=== PATIENT | female | born 1995 | race Caucasian/White ===

== ENCOUNTER 2024-03-30 10:32 | Outpatient (OUT) | payer OTHER, BC, SELFPAY ==
[2024-03-30 11:56] LABS: Amphetamine Screen Urine NEGATIVE (NEGATIVE); Barbiturates Screen Urine NEGATIVE (NEGATIVE); Benzodiazepines Screen Urine NEGATIVE (NEGATIVE); Buprenorphine Screen Urine NEGATIVE (NEGATIVE); Cannabinoid Screen Urine NEGATIVE (NEGATIVE); Cocaine Screen Urine NEGATIVE (NEGATIVE); Methadone Screen Urine NEGATIVE (NEGATIVE); Methamphetamines Screen Urine NEGATIVE (NEGATIVE); Opiate Screen Urine NEGATIVE (NEGATIVE); Oxycodone Screen Urine NEGATIVE (NEGATIVE); Phencyclidine Screen Urine NEGATIVE (NEGATIVE); Tricyclic Antidepressant Urine NEGATIVE (NEGATIVE)
[2024-03-30 12:03] LABS: Basophils Percent Auto 0.3 % (0.2-2.0); Eosinophils Absolute Auto 0.1 10^3/uL (0.0-0.7); Eosinophils Percent Auto 0.7 % (0.9-7.0); Hematocrit 42.9 % (36.0-48.0); Hemoglobin 15.1 g/dL (12.0-16.0); Immature Granulocytes Abs Auto 0.02 10^3/uL (0.00-0.03); Immature Granulocytes Pct Auto 0.2 % (0.0-0.5); Lymphocytes Percent Auto 22.7 % (20.5-60.0); Mean Corpuscular HGB Conc 35.2 g/dL (29.9-35.2); Mean Corpuscular Hemoglobin 31.2 pg (26.7-34.0); Mean Corpuscular Volume 88.6 fL (81.0-99.0); Mean Platelet Volume 9.9 fL (9.5-13.5); Monocytes Absolute Auto 0.7 10^3/uL (0.3-0.8); Monocytes Percent Auto 7.6 % (1.7-12.0); Neutrophils Absolute Auto 5.9 10^3/uL (1.4-6.5); Neutrophils Percent Auto 68.5 % (43.0-75.0); Platelet Count 264 10^3/uL (150-450); Red Blood Count 4.84 10^6/uL (4.20-5.40); Red Cell Distribution Width 12.5 % (11.0-15.0); White Blood Count 8.6 10^3/uL (4.0-11.0)
[2024-03-30 12:25] LABS: Estimated Average Glucose 97 mg/dL
[2024-03-31 05:08] LABS: HIV Ab/p24 Ag Screen Non Reactive (Non Reactive); Rubella Antibodies, IgG 1.81 index (Immune >0.99)
[2024-03-31 06:09] LABS: HBsAg Screen Negative (Negative)
[2024-03-31 11:10] LABS: Rapid Plasma Reagin, Quant Non Reactive titer (NonRea<1:1)
== END 2024-03-30 10:33 | disposition home or self-care (01) ==
LOC: LAB 10:39
DX: Z34.81 Encounter for supervision of other normal pregnancy, first trimester (principal)
CPT/HCPCS: 36415; 80307; 83036; 85025; 86592; 86762; 86850; 86900; 86901; 87086; 87340; 87389

== ENCOUNTER 2024-07-25 10:20 | Outpatient (OUT) | payer OTHER, BC, SELFPAY ==
[2024-07-25 11:38] LABS: Hematocrit 37.3 % (36.0-48.0); Hemoglobin 12.6 g/dL (12.0-16.0)
[2024-07-25 12:07] LABS: Glucose 1 Hour 128 mg/dL (<130)
--- OUTSIDE RECORDS SUMMARY | 2024-07-25 17:25 | XMS_ITS | CCD ---
Author Organization [facility] Care Team Providers Care Polishing Machine Tender Name Role Phone Natayush DO Mariah Attending Provider NO FAMILY, PHYSICIAN Primary Care Provider Unava ilable Nataprnik DO Mariah Referring Provider Nataprnik DO Mariah Admit Provider Nataprawira, Mariah Attending Unavailable Nataprawira, Mariah Admitting Unavailable Nataprawira, Mariah Admitting Unavailable NO FAMILY, PHYSICIAN Primary Care Unavailable Nataprawira, Mariah Attending Unavailable Nataprawira, Mariah Admitting Unavailable NO FAMILY, PHYSICIAN Primary Care Unavailable Nataprawira, Mariah Referring Unavailable Natchrisawira, Mariah Attending Unavailable NONE, XXXX Primary Care Physician Unavailab Erin Marie Attending Unavailable Unallocated MD Noms Provider Primary Care Provi nomi MARLY ODELL Attending Unavailable MARLY ODELL Attending Unavailable MARLY ODELL Attending Unavailable MARLY ODELL Attending Unavailable MARIAH TADEO J Attending Unavailable Allergies Allergy Classification Reported Allergen(s) Allergy Type Date of Onset Reaction(s) Facility (8 sources) Dextromethorphan; Translations: [dextromethorphan] Drug Allergy 2 [facility] (8 sources) guaiFENesin; Translations: [guaifenesin] Drug Allergy 2 [facility] (8 sources) Phenylephrine; Translations: [phenylephrine] Drug Allergy 2 [facility] (5 sources) Dextromethorphan Drug Allergy 4 Itching [facility] Medications Current Medications Medication Drug Class(es) Dates Sig (Normalized) Sig (Original) docusate sodium 100 mg oral capsule (1 source) Start: 06-28-2022 take 100 mg by mouth at bedtime Docusate Sodium Active 100 MG PO Bedtime 30 June 28, 2022 12:00am ibuprofen 600 mg oral tablet (1 source) Nonsteroidal Anti-inflammatory Drug Start: 06-28-2022 take 600 mg by mouth every six hours Ibuprofen Active 600 MG PO Q6H 60 June 28, 2022 12:00am [place] (No Known Home Meds) (1 source) Start: 06-25-2022 [place] (No Known Home Meds) Active June 25, 2022 12:00am ofloxacin 3 mg/ml otic solution (1 source) Quinolone Antimicrobial Start: 03-21-2023 End: 03-28-2023 ofloxacin Otic 0.3% Grisel 10 drop(s), Otic, Daily for 7 day(s), 10 mL, Refill(s) 0, [facility], 168, cm, 03/21/23 11:37:00 EDT, Height/Length Dosing, 101, kg, 03/21/23 11:37:00 EDT, Weight Dosing Start Date: 03/21/23 Stop Date: 03/28/23 Status: Ordered Vit-Fe Fumarate-FA ( VITAMINS PO) (5 sources) Vit-Fe Fumarate-FA ( VITAMINS PO) Take 1 tablet by mouth Active Problems Active Problems Problem Classification Problem Date Documented Date Episodic/Chronic Other complications of (2 sources) Maternal obesity complicating , childbirth and the puerperium, antepartum; Translations: [Obesity complicating , second trimester] 07-06-2024 Chronic Other complications of (4 sources) Finding related to ; Translations: [ related conditions, unspecified, second trimester] 05-30-2024 Episodic Other ear and sense organ disorders (1 source) Otitis externa of left ear; Translations: [Unspecified otitis externa, left ear] Onset: 03-21-2023 Chronic Other ear and sense organ disorders (1 source) Impacted cerumen in left ear; Translations: [Impacted cerumen, left ear] Onset: 03-21-2023 Episodic Other female genital disorders (2 sources) History of past delivery; Translations: [Status post vaginal delivery] 06-27-2022 Episodic Other lower respiratory disease (1 source) Cough; Translations: [Acute cough] Onset: 07-24-2024 Episodic Other nutritional; endocrine; and metabolic disorders (1 source) Obese class II; Translations: [Body mass index (BMI) 35.0-35.9, adult] Onset: 03-21-2023 Chronic Other nutritional; endocrine; and metabolic disorders (1 source) Obesity; Translations: [Other obesity due to excess calories] Onset: 03-21-2023 Chronic Other nutritional; endocrine; and metabolic disorders (3 sources) Body mass index 30+ - obesity 12-04-2023 Chronic Other nutritional; endocrine; and metabolic disorders (1 source) Obese class I; Translations: [Body mass index (BMI) 33.0-33.9, adult] Onset: 12-04-2023 Chronic Other screening for suspected conditions (not mental disorders or infectious disease) (6 sources) No current problems or disability; Translations: [Patient encounter status] 02-23-2014 Episodic Residual codes; unclassified (2 sources) Gestation period, 20 weeks; Translations: [20 weeks gestation of ] 05-30-2024 Episodic Residual codes; unclassified (2 sources) Gestation period, 24 weeks; Translations: [24 weeks gestation of ] 06-27-2024 Episodic Residual codes; unclassified (1 source) Gestation period, 27 weeks; Translations: [27 weeks gestation of ] Onset: 07-24-2024 Episodic Sprains and strains (4 sources) Sprain of knee; Translations: [Sprain of unspecified site of right knee, initial encounter] Onset: 12-04-2023 12-04-2023 Episodic Unclassified (1 source) Encounter for supervision of normal first , first trimester; Translations: [Encounter for supervision of normal first , first trimester] Onset: 06-25-2022 Unclassified (1 source) Encounter for screening for Streptococcus B; Translations: [Encounter for screening for Streptococcus B] Onset: 06-03-2022 Past or Other Problems Problem Classification Problem Date Documented Da te Episodic/Chronic Early or threatened labor (1 source) False labor, unspecified; Translations: [False labor, unspecified] Onset: 06-12-2022 Episodic Residual codes; unclassified (1 source) 36 weeks gestation of ; Translations: [36 weeks gestation of ] Onset: 06-03-2022 Episodic NEGATED: Highlighted row has been ruled out!Unclassified (5 sources) No known active problems 04-12-2024 Results Test Name Value Interpretation Reference Range Facility No Panel Informationon 07-06 Glucose, UA Negative Negative - 1999(110) ++++ mg/dL [facility] Interpretation and review of laboratory results Normal [facility] Protein, UA Negative Negative - 1999(20) ++++ mg/dL [facility] No Panel Informationon 06-08 Glucose, UA Negative Negative - 1999(110) ++++ mg/dL [facility] Interpretation and review of laboratory results Normal [facility] Protein, UA Negative Negative - 1999(20) ++++ mg/dL [facility] Family Medicine Office/Clini c Noteon 03-21-2023 Family Medicine Office/Clinic Note Chief Complaint [place] ear plugged HPI Staff left ear is plugged started on thursday and has been putting OTC ear drops in for swimmers ear and it isnt helping at all denies fevers, fatigue, URI symptoms, or ear drainage. She denies any real pain, describes it more as an annoyance History of Present Illness I have reviewed and verified the staff HPI to be accurate for this encounter. Portions of this record may have been created with voice recognition artificial intelligence software, specifically [email or web address], [employer] and or [employer]. Substitutions may have occurred due to the inherent limitations of voice recognition and artificial intelligence software. Review of Systems PHQ Score Initial Depression Screen Score: 0 Physical Exam Vitals & Measurements T: 36.5 ?C(Oral) HR: 71(Peripheral) BP: 120/72 SpO2: 97% HT: 66 in HT: 168 cm WT: 101 kg WT: 222.2 lb BMI: 35.79 General: _Pleasant, obese female in no acute distress. Ears: _ Right external canal without signs of infection. Right TM intact, pearly ignacio. Left external canal does appear to be moderately erythematous and mildly edematous at the opening of the canal. There is a small amount of crusted blood noted in the canal.. There does appear to be cerumen impaction further into the canal. Patient does deny pain on palpation in the region of the external ear. Decided to move forward with ear irrigation. Left external canal irrigated by Mary Huang MA with warm water and peroxide mixture. Patient tolerated procedure well. Moderate amount of cerumen removed from the left canal. After irrigation, TM appears intact, pearly ignacio. Nose: No deformity, discharge, inflammation, or lesions Mouth: Mucous membranes moist. Normal oropharynx, and posterior pharynx without lesions or exudates. Tongue normal Neck: shotty anterior cervical nodes bilaterally Lungs: Normal respiratory effort and clear to auscultation Cardio: regular rate and rhythm, no murmur Mental Status: Alert and oriented x3. Normal mood and affect Assessment/Plan 1. Impacted cerumen of left ear (H61.22: Impacted cerumen, left ear) Left ear flushed out by Mary Huang MA. Patient tolerated well. Moderate amount of cerumen removed. After flushing, TM and canals appear normal without any sign of infection. Discussed ear may feel a little sore for the next 2 days. Fu with PCP if any further concerns. If needs ears flushed out in future may return to convenient care office. 2. Otitis externa, left (H60.92: Unspecified otitis externa, left ear) Will cover for otitis externa, given suspected trauma noted to the left ear canal. Will treat with ofloxacin otic drops. Finish course. Lay with ear up for 5 minutes after applying drops. Keep ear clean and dry, avoid water activities or inserting objects into ear such as earbuds, qtips. May use OTC tylenol/ibuprofen for pain. FU with PCP if not improving over next 5 days with treatment, significantly worsening, or fevers. Patient verbalized understanding of treatment plan. Ordered: ofloxacin otic, 10 drop(s), Otic, Daily for 7 day(s), 10 mL, Refill(s) 0, [facility], 168, cm, 03/21/23 11:37:00 EDT, Height/Length Dosing, 101, kg, 03/21/23 11:37:00 EDT, Weight Dosing Ear Irrigation 40409 3. BMI 35.0-35.9,adult (Z68.35: Body mass index [BMI] 35.0-35.9, adult) The standard range for ages 18 and older is >=18.5 and < 25 kg/m2. Your BMI today was above this range, this falls in the overweight to obese category and there are medical benefits to weight loss. We can offer counselling, referral, and/or medical support in addressing this problem. Your BMI and weight management will be followed at subsequent visits. 4. Obesity due to excess calories (E66.09: Other obesity due to excess calories) see #3, diet/exercise Follow-up With When Contact Information NONE, XXXX [phone] Additional Instructions: Patient Education Otitis Externa BMI for Adults BMI for Adults Problem List/Past Medical History Ongoing No qualifying data Historical denies Procedure/Surgical History denies. Medications ofloxacin Otic 0.3% Grisel, 10 drop(s), Otic, Daily Allergies No Known Allergies Social History Tobacco Never (less than 100 in lifetime) Tobacco Use:. Never Smokeless Tobacco Use:., 03/21/2023 Family History Family history is negative Immunizations Vaccine Date Status Comments SARS-CoV-2 mRNA (tozinameran 5y-11y) vac - Not Given Patient Refuses influenza virus vaccine, live, trivalent - Not Given Postpone due to refusal we don't offer at this clinic Normal [facility] Comment on above: Result Comment: Elec tronically Signed By: ELIESER Holman APRN, Erin Tidwell\.br\Date and Time Signed: 03/21/23 12:17 EDT Patient Educationon 03-21-20 Patient Education BMI for Adults What is BMI? Body mass index (BMI) is a number that is calculated from a person's weight and height. BMI can help estimate how much of a person's weight is composed of fat. BMI does not measure body fat directly. Rather, it is an alternative to procedures that directly measure body fat, which can be difficult and expensive. BMI can help identify people who may be at higher risk for certain medical problems. What are BMI measurements used for? BMI is used as a screening tool to identify possible weight problems. It helps determine whether a person is obese, overweight, a healthy weight, or underweight. BMI is useful for: ? Identifying a weight problem that may be related to a medical condition or may increase the risk for medical problems. ? Promoting changes, such as changes in diet and exercise, to help reach a healthy weight. BMI screening can be repeated to see if these changes are working. How is BMI calculated? BMI involves measuring your weight in relation to your height. Both height and weight are measured, and the BMI is calculated from those numbers. This can be done either in [place] or metric measurements. Note that charts and online BMI calculators are available to help you find your BMI quickly and easily without having to do these calculations yourself. To calculate your BMI in [place] measurements: 1. Measure your weight in pounds (lb). 2. Multiply the number of pounds by 703. ? For example, for a person who weighs 180 lb, multiply that number by 703, which equals 126,540. 3. Measure your height in inches. Then multiply that number by itself to get a measurement called inches squared. ? For example, for a person who is 70 inches tall, the inches squared measurement is 70 inches x 70 inches, which equals 4,900 inches squared. 4. Divide the total from step 2 (number of lb x 703) by the total from step 3 (inches squared): 126,540 ? 4,900 = 25.8. This is your BMI. To calculate your BMI in metric measurements: 1. Measure your weight in kilograms (kg). 2. Measure your height in meters (m). Then multiply that number by itself to get a measurement called meters squared. ? For example, for a person who is 1.75 m tall, the meters squared measurement is 1.75 m x 1.75 m, which is equal to 3.1 meters squared. 3. Divide the number of kilograms (your weight) by the meters squared number. In this example: 70 ? 3.1 = 22.6. This is your BMI. What do the results mean? BMI charts are used to identify whether you are underweight, normal weight, overweight, or obese. The following guidelines will be used: ? Underweight: BMI less than 18.5. ? Normal weight: BMI between 18.5 and 24.9. ? Overweight: BMI between 25 and 29.9. ? Obese: BMI of 30 or above. Keep these notes in mind: ? Weight includes both fat and muscle, so someone with a muscular build, such as an athlete, may have a BMI that is higher than 24.9. In cases like these, BMI is not an accurate measure of body fat. ? To determine if excess body fat is the cause of a BMI of 25 or higher, further assessments may need to be done by a health care provider. ? BMI is usually interpreted in the same way for men and women. Where to find more information For more information about BMI, including tools to quickly calculate your BMI, go to these websites: ? Centers for Disease Control and Prevention: www.cdc.gov ? [place] Heart Association: www.heart.org ? National Heart, Lung, and Blood [place]: www.nhlbi.nih.gov Summary ? Body mass index (BMI) is a number that is calculated from a person's weight and height. ? BMI may help estimate how much of a person's weight is composed of fat. BMI can help identify those who may be at higher risk for certain medical problems. ? BMI can be measured using [place]ese measurements or metric measurements. ? BMI charts are used to identify whether you are underweight, normal weight, overweight, or obese. This information is not intended to replace advice given to you by your health care provider. Make sure you discuss any questions you have with your health care provider. Document Revised: 05/16/2020 Document Reviewed: 03/23/2020 [employer] Patient Education ? 2022 [employer]. Infectious Disease Otitis Externa Otitis externa is an infection of the outer ear canal. The outer ear canal is the area between the outside of the ear and the eardrum. Otitis externa is sometimes called swimmer's ear. What are the causes? Common causes of this condition include: ? Swimming in dirty water. ? Moisture in the ear. ? An injury to the inside of the ear. ? An object stuck in the ear. ? A cut or scrape on the outside of the ear or in the ear canal. What increases the risk? You are more likely to develop this condition if you go swimming often. What are the signs or symptoms? The first symptom of this condition is often itching i (more content not included)... Normal [facility] Basophils Auto (Bld) [#/Vol] Ordered By: MARIAH TADEO on 06-27-2022 Basophils (Bld) [#/Vol] 0.1 10*3/uL 0.0-0.[address] [facility] Basophils/100 WBC Auto (Bld) Ordered By: MARIAH TADEO on 06-27-2022 Basophils/100 WBC (Bld) 0.3 % . F [facility] Complete Blood Count Auto Di ffon 06-27-2022 Basophils (Bld) [#/Vol] 0.1 10*3/uL Normal 0.0-0.[address] [facility] Comment on above: Order Comment: Comme nt Draw at 630 am Result Comment: PERF ORMED BY: [place] [address] PATHOLOGIST LEGAL CASHIER ROWDY EKY M.D. Performed By: #### C BC #### [address] Basophils/100 WBC (Bld) 0.3 % Normal . [facility] Comment on above: Order Comment: Comme nt Draw at 630 am Performed By: #### C BC #### [facility] [address] [place] [address] Eosinophils (Bld) [#/Vol] 0.1 10*3/uL Normal 0.0-0.[address] [facility] Comment on above: Order Comment: Comme nt Draw at 630 am Performed By: #### C BC #### [address] Eosinophils/100 WBC (Bld) 0.4 % Normal . [facility] Comment on above: Order Comment: Comme nt Draw at 630 am Performed By: #### C BC #### [facility] [address] [place] [address] Erythrocyte distribution width (RBC) [Ratio] 13.6 % Normal 11.9-15.[address] [facility] Comment on above: Order Comment: Comme nt Draw at 630 am Performed By: #### C BC #### [address] Hematocrit (Bld) [Volume fraction] 33.7 % Low 34.0-46.[address] [facility] Comment on above: Order Comment: Comme nt Draw at 630 am Performed By: #### C BC #### [address] Hemoglobin (Bld) [Mass/Vol] 11.2 g/dL Low 11.8-15.[address] [facility] Comment on above: Order Comment: Comme nt Draw at 630 am Performed By: #### C BC #### [address] Lymphocytes (Bld) [#/Vol] 2.1 10*3/uL Normal 1.00-4.[address] [facility] Comment on above: Order Comment: Comme nt Draw at 630 am Performed By: #### C BC #### [address] Lymphocytes/100 WBC (Bld) 12.0 % Normal . [facility] Comment on above: Order Comment: Comme nt Draw at 630 am Performed By: #### C BC #### [address] MCH (RBC) [Entitic mass] 29.7 pg Normal 24.7-34.[address] [facility] Comment on above: Order Comment: Comme nt Draw at 630 am Performed By: #### C BC #### [address] MCV (RBC) [Entitic vol] 89.4 fL Normal 80-100 F [facility] Comment on above: Order Comment: Comme nt Draw at 630 am Performed By: #### C BC #### [address] Mean Corpuscular HGB Conc 33.2 g/dL Normal 32.0-35.[address] [facility] Comment on above: Order Comment: Comme nt Draw at 630 am Performed By: #### C BC #### [address] Monocytes (Bld) [#/Vol] 1.5 10*3/uL High 0.0-0.[address] [facility] Comment on above: Order Comment: Comme nt Draw at 630 am Performed By: #### C BC #### [address] [place] [address] [place] Monocytes/100 WBC (Bld) 8.6 % Normal . [facility] Comment on above: Order Comment: Comme nt Draw at 630 am Performed By: #### C BC #### [address] Neutrophils (Bld) [#/Vol] 14.1 10*3/uL High 1.8-7.[address] [facility] Comment on above: Order Comment: Comme nt Draw at 630 am Performed By: #### C BC #### [address] Neutrophils/100 WBC (Bld) 78.7 % Normal . [facility] Comment on above: Order Comment: Comme nt Draw at 630 am Performed By: #### C BC #### [address] Nucleated RBC/100 WBC (Bld) [Ratio] 0.0 % Normal 0-0.[address] [facility] Comment on above: Order Comment: Comme nt Draw at 630 am Performed By: #### C BC #### [address] Platelet mean volume (Bld) [Entitic vol] 8.2 fL Normal 6.3-10.[address] [facility] Comment on above: Order Comment: Comme nt Draw at 630 am Performed By: #### C BC #### [place] [address] [place] Platelets (Bld) [#/Vol] 248 10*3/uL Normal 150-[address] [facility] Comment on above: Order Comment: Comme nt Draw at 630 am Performed By: #### C BC #### [place] [address] [place] RBC (Bld) [#/Vol] 3.76 10*6/uL Normal 3.60-5.00 [facility] Comment on above: Order Comment: Comme nt Draw at 630 am Performed By: #### C BC #### [place] [address] [place] WBC (Bld) [#/Vol] 17.9 10*3/uL High 4.5-11.0 [facility] Comment on above: Order Comment: Comme nt Draw at 630 am Performed By: #### C BC #### [facility] [address] Eosinophils Auto (Bld) [#/Vo l]Ordered By: MARIAH TADEO on 06-27-2022 Eosinophils (Bld) [#/Vol] 0.1 10*3/uL 0.0-0.[address] [facility] Eosinophils/100 WBC Auto (Bl d)Ordered By: MARIAH TADEO on 06-27-2022 Eosinophils/100 WBC (Bld) 0.4 % . [facility] Erythrocyte distribution wid th Auto (RBC) [Ratio]Ordered By: MARIAH TADEO on 06-27-2022 Erythrocyte distribution width (RBC) [Ratio] 13.6 % 11.9-15.[address] [facility] Hematocrit Auto (Bld) [Volum e fraction]Ordered By: MARIAH TADEO on 06-27-2022 Hematocrit (Bld) [Volume fraction] 33.7 % 34.0-46.[address] [facility] Hemoglobin [Mass/volume] in BloodOrdered By: MARIAH TADEO on 06-27-2022 Hemoglobin (Bld) [Mass/Vol] 11.2 g/dL 11.8-15.[address] [facility] Laboratory - Hematology and Cell countsOrdered By: MARIAH TADEO on 06-27-2022 Nucleated RBC/100 WBC (Bld) [Ratio] 0.0 % 0-0.[address] [facility] Leukocytes [#/volume] in Blo od by Automated countOrdered By: MARIAH TADEO on 06-27-2022 WBC (Bld) [#/Vol] 17.9 10*3/uL 4.5-11.0 [facility] Lymphocytes Auto (Bld) [#/Vo l]Ordered By: MARIAH TADEO on 06-27-2022 Lymphocytes (Bld) [#/Vol] 2.1 10*3/uL 1.00-4.[address] [facility] Lymphocytes/100 WBC Auto (Bl d)Ordered By: MARIAH TADEO on 06-27-2022 Lymphocytes/100 WBC (Bld) 12.0 % . [facility] MCH Auto (RBC) [Entitic mass ]Ordered By: MARIAH TADEO on 06-27-2022 MCH (RBC) [Entitic mass] 29.7 pg 24.7-34.[address] [facility] MCHC Auto (RBC) [Mass/Vol]Or dered By: MARIAH TADEO on 06-27-2022 MCHC (RBC) [Mass/Vol] 33.2 g/dL 32.0-35.0 Fir [facility] MCV Auto (RBC) [Entitic vol] Ordered By: MARIAH TADEO on 06-27-2022 MCV (RBC) [Entitic vol] 89.4 fL 80-100 [facility] Monocytes Auto (Bld) [#/Vol] Ordered By: MARIAH TADEO on 06-27-2022 Monocytes (Bld) [#/Vol] 1.5 10*3/uL 0.0-0.[address] [facility] Monocytes/100 WBC Auto (Bld) Ordered By: MARIAH TADEO on 06-27-2022 Monocytes/100 WBC (Bld) 8.6 % . [facility] Neutrophils Auto (Bld) [#/Vo l]Ordered By: MARIAH TADEO on 06-27-2022 Neutrophils (Bld) [#/Vol] 14.1 10*3/uL 1.8-7.[address] [facility] Neutrophils/100 WBC Auto (Bl d)Ordered By: MARIAH TADEO on 06-27-2022 Neutrophils/100 WBC (Bld) 78.7 % . [facility] Platelet mean volume Auto (B ld) [Entitic vol]Ordered By: MARIAH TADEO on 06-27-2022 Platelet mean volume (Bld) [Entitic vol] 8.2 fL 6.3-10.[address] [facility] Platelets Auto (Bld) [#/Vol] Ordered By: MARIAH TADEO on 06-27-2022 Platelets (Bld) [#/Vol] 248 10*3/uL 150-[address] [facility] RBC Auto (Bld) [#/Vol]Ordere d By: MARIAH TADEO on 06-27-2022 RBC (Bld) [#/Vol] 3.76 10*6/uL 3.60-5.00 [facility] ABO/RH Typeon 06-26-2022 ABO and Rh group Nom (Bld) Blood group O Rh(D) positive Normal [facility] Comment on above: Result Comment: PERF ORMED BY: [place] [address] PATHOLOGIST LEGAL CASHIER ROWDY KEY M.D. Complete Blood Count Auto Di ffon 06-26-2022 Basophils (Bld) [#/Vol] 0.1 10*3/uL Normal 0.0-0.[address] [facility] Comment on above: Result Comment: PERF ORMED BY: [place] [address] PATHOLOGIST LEGAL CASHIER ROWDY KEY M.D. Performed By: #### R AK W RFX #### [facility] , #### CBC #### [facility] [address] [place] [address] [place] Basophils/100 WBC (Bld) 0.5 % Normal . [facility] [facility] Comment on above: Performed By: #### R AK W RFX #### [facility] , #### CBC #### [facility] [address] [place] [address] [place] Eosinophils (Bld) [#/Vol] 0.1 10*3/uL Normal 0.0-0.[address] [facility] Comment on above: Performed By: #### R AK W RFX #### [facility] , #### CBC #### [facility] [address] [place] [address] [place] Eosinophils/100 WBC (Bld) 0.7 % Normal . [facility] Comment on above: Performed By: #### R AK W RFX #### [facility] , #### CBC #### [facility] [address] [place] [address] Erythrocyte distribution width (RBC) [Ratio] 13.6 % Normal 11.9-15.[address] [facility] Comment on above: Performed By: #### R AK W RFX #### [facility] , #### CBC #### [facility] [address] [place] [address] Hematocrit (Bld) [Volume fraction] 37.2 % Normal 34.0-46.[address] [facility] Comment on above: Performed By: #### R AK W RFX #### [facility] , #### CBC #### [address] Hemoglobin (Bld) [Mass/Vol] 12.5 g/dL Normal 11.8-15.[address] [facility] Comment on above: Performed By: #### R AK W RFX #### [facility] , #### CBC #### [facility] [address] [place] [address] Lymphocytes (Bld) [#/Vol] 1.8 10*3/uL Normal 1.00-4.[address] [facility] Comment on above: Performed By: #### R AK W RFX #### [facility] , #### CBC #### [facility] [address] [place] [address] Lymphocytes/100 WBC (Bld) 14.8 % Normal . [facility] Comment on above: Performed By: #### R AK W RFX #### [facility] , #### CBC #### [facility] [address] [place] [address] MCH (RBC) [Entitic mass] 29.9 pg Normal 24.7-34.[address] [facility] Comment on above: Performed By: #### R AK W RFX #### [facility] , #### CBC #### [facility] [address] [place] [address] MCV (RBC) [Entitic vol] 89.0 fL Normal 80-100 [facility] Comment on above: Performed By: #### R AK W RFX #### [facility] , #### CBC #### [address] Mean Corpuscular HGB Conc 33.6 g/dL Normal 32.0-35.[address] [facility] Comment on above: Performed By: #### R AK W RFX #### [facility] , #### CBC #### [address] Monocytes (Bld) [#/Vol] 0.9 10*3/uL High 0.0-0.[address] [facility] Comment on above: Performed By: #### R AK W RFX #### [facility] , #### CBC #### [address] Monocytes/100 WBC (Bld) 7.8 % Normal . [facility] Comment on above: Performed By: #### R AK W RFX #### [facility] , #### CBC #### [facility] [address] [place] [address] Neutrophils (Bld) [#/Vol] 9.2 10*3/uL High 1.8-7.[address] [facility] Comment on above: Performed By: #### R AK W RFX #### [facility] , #### CBC #### [facility] [address] [place] [address] Neutrophils/100 WBC (Bld) 76.2 % Normal . [facility] Comment on above: Performed By: #### R AK W RFX #### [facility] , #### CBC #### [facility] [address] [place] [address] Nucleated RBC/100 WBC (Bld) [Ratio] 0.0 % Normal 0-0.[address] [facility] Comment on above: Performed By: #### R AK W RFX #### [facility] , #### CBC #### [facility] [address] [place] [address] Platelet mean volume (Bld) [Entitic vol] 7.9 fL Normal 6.3-10.[address] [facility] Comment on above: Performed By: #### R AK W RFX #### [facility] , #### CBC #### [address] Platelets (Bld) [#/Vol] 327 10*3/uL Normal 150-[address] [facility] Comment on above: Performed By: #### R AK W RFX #### [facility] , #### CBC #### [address] RBC (Bld) [#/Vol] 4.18 10*6/uL Normal 3.60-5.00 [facility] Comment on above: Performed By: #### R AK W RFX #### [facility] , #### CBC #### [facility] [address] [place] [address] WBC (Bld) [#/Vol] 12.0 10*3/uL High 4.5-11.0 [facility] Comment on above: Performed By: #### R AK W RFX #### [facility] , #### CBC #### [facility] [address] [place] [address] RPR w/rfx to Quant TP Abson 06-26-2022 RPR, Rfx Quant RPR Non-Reactive Normal Non Reactive [facility] Comment on above: Result Comment: Perf ormed at: CB - [facility] [address] [id number] Welder Tack: Herman Weston PhD, Phone: [phone] PERFORMED BY: [place] [address] PATHOLOGIST LEGAL CASHIER ROWDY KEY M.D. Performed By: #### R AK W RFX #### [facility] , #### CBC #### [address] Amphetamine Screen Ql (U)Ord ered By: MARIAH TADEO on 06-25-2022 Amphetamines Ql (U) Negative Negative [facility] Automated erythrocytes count in urine sediment (number/area)Ordered By: MARIAH TADEO on 06-25-2022 RBC Auto (Urine sed) [#/Area] 0-1 [HPF] 0-[address] [facility] Automated leukocytes count i n urine sediment (number/area)Ordered By: MARIAH TADEO on 06-25-2022 WBC Auto (Urine sed) [#/Area] 3-4 [HPF] 0-[address] 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 Negative results do not rule out COVID-19 and should not be used as the sole basis for treatment or patient management decisions, including infection control decisions. Negative results should be considered in the context of a patient's recent exposures, history and the presence of clinical signs and symptoms consistent with COVID-19. The Sammi SARS Antigen ANGELIC does not differentiate between SARS-CoV and SARS-CoV-2. This test was developed and its performance characteristic determined by [employer] and validated at [facility]. This test has not been FDA cleared or approved. This test has been authorized by FDA under an Emergency Use Authorization (EUA). This test has been validated in accordance with the FDA's Guidance Document (Policy for Diagnostics Testing in Laboratories Certified to Perform High Complexity Testing under CLIA prior to Emergency Use Authorization for Coronavirus Disease-2019 during the Public Health Emergency) issued on December 08, 2019. This test is only authorized for the duration of time the declaration that circumstances exist justifying the authorization of the emergency use of in vitro diagnostic tests for detection of SARS-CoV-2 virus and/or diagnosis of COVID-19 infection under section 564(b)(1) of the Act, 21 U.S.C. 360bbb-3(b)(1), unless the authorization is terminated or revoked sooner. SARS-CoV+SARS-CoV- 2 (COVID-19) Ag [Presence] in Respiratory specimen by Rapid immunoassay Negative for SARS Antigen by ANGELIC PERFORMED BY: [place] [address] PATHOLOGIST LEGAL CASHIER ROWDY KEY M.D. Normal [facility] Comment on above: Performed By: #### C OVID-19 SAMMI, SOFIANEG #### [address] COVID-19 SOFIAOrdered By: SHELLY TADEO on 06-25-2022 SARS-CoV+SARS-CoV-2 (COVID-19) Ag IA.rapid Ql (Resp) Negative Negative [facility] Comment on above: This is a duplicate Sammi SARS Antigen (ANGELIC) result to be used for statistical tracking purpose only. Color Auto (U)Ordered By: SHELLY TADEO on 06-25-2022 Color (U) Yellow Yellow [facility] Dipstick and Microscopicon 1 Appearance (U) Clear Normal Clear [facility] Comment on above: Order Comment: Name Collection Type:: Voided Performed By: #### A DDONUAPLUS, OBUDS #### [facility] [address] [place] [address] [place] Bacteria,Urine None Seen Normal None Seen [facility] Comment on above: Order Comment: Name Collection Type:: Voided Performed By: #### A DDONUAPLUS, OBUDS #### [facility] [address] [place] [address] [place] Bilirubin,Urine Negative Normal Negative [facility] Comment on above: Order Comment: Name Collection Type:: Voided Performed By: #### A DDONUAPLUS, OBUDS #### [place] [address] [place] Color (U) Yellow Normal Yellow [facility] Comment on above: Order Comment: Name Collection Type:: Voided Performed By: #### A DDONUAPLUS, OBUDS #### [place] [address] [place] Glucose Ql (U) Normal Normal Normal [facility] Comment on above: Order Comment: Name Collection Type:: Voided Performed By: #### A DDONUAPLUS, OBUDS #### [place] [address] [place] Hyaline Casts,Urine 0-8 Normal 0-8 [facility] Comment on above: Order Comment: Name Collection Type:: Voided Result Comment: PERF ORMED BY: [place] [address] PATHOLOGIST LEGAL CASHIER ROWDY KEY M.D. Performed By: #### A DDONUAPLUS, OBUDS #### [facility] [address] [place] [address] [place] Ketones Ql (U) 1+ High Negative [facility] Comment on above: Order Comment: Name Collection Type:: Voided Performed By: #### A DDONUAPLUS, OBUDS #### [facility] [address] [place] [address] [place] Leukocyte esterase Test strip Ql (U) 1+ High Negative [facility] Comment on above: Order Comment: Name Collection Type:: Voided Performed By: #### A DDONUAPLUS, OBUDS #### [place] [address] [place] Nitrite,Urine Negative Normal Negative [facility] Comment on above: Order Comment: Name Collection Type:: Voided Performed By: #### A DDONUAPLUS, OBUDS #### [address] Occult Blood,Urine Negative Normal Negative [facility] Comment on above: Order Comment: Name Collection Type:: Voided Result Comment: PERF ORMED BY: [place] [address] PATHOLOGIST LEGAL CASHIER ROWDY KEY M.D. Performed By: #### A DDONUAPLUS, OBUDS #### [address] pH (U) 6.5 [pH] Normal 5.0-9.[address] [facility] Comment on above: Order Comment: Name Collection Type:: Voided Performed By: #### A DDONUAPLUS, OBUDS #### [place] [address] [place] Protein,Urine Negative Normal Negative [facility] Comment on above: Order Comment: Name Collection Type:: Voided Performed By: #### A DDONUAPLUS, OBUDS #### [place] [address] [place] RBC LM.HPF (Urine sed) [#/Area] 0 /[HPF] Normal 0-[address] [facility] Comment on above: Order Comment: Name Collection Type:: Voided Performed By: #### A DDONUAPLUS, OBUDS #### [place] [address] [place] Specificy [place],Urine 1.012 Normal 1.001-1.[address] [facility] Comment on above: Order Comment: Name Collection Type:: Voided Performed By: #### A DDONUAPLUS, OBUDS #### [place] [address] [place] Squamous Epithelial Cell,Urine 0-1 Normal 0-[address] [facility] Comment on above: Order Comment: Name Collection Type:: Voided Performed By: #### A RADHA OBUDS #### [facility] [address] Urobilinogen,Urine Normal Normal Normal [facility] Comment on above: Order Comment: Name Collection Type:: Voided Performed By: #### A RADHA OBUDS #### [facility] [address] [place] [address] WBC,Urine 3-4 Normal 0-[address] [facility] Comment on above: Order Comment: Name Collection Type:: Voided Performed By: #### A RADHA OBUDS #### [address] Ketones Auto test strip (U) [Mass/Vol]Ordered By: MARIAH TADEO on 06-25-2022 Ketones (U) [Mass/Vol] 1+ Negative [facility] - Drug toxicology Ordered By: MARIAH TADEO on 06-25-2022 Opiates Ql (U) Negative Negative [facility] Laboratory - UrinalysisOrder ed By: MARIAH TADEO on 06-25-2022 Hyaline casts LM Ql (Urine sed) 0-8 [LPF] 0-[address] [facility] Nitrite Test strip Ql (U)Ord ered By: MARIAH TADEO on 06-25-2022 Nitrite Ql (U) Negative Negative [facility] No Panel InformationOrdered By: MARIAH TADEO on 06-25-2022 SARS Antigen (LFIA) [facility] OB Urine Drug Screen (NO THC )on 06-25-2022 Amphetamine Screen,Urine Negative Normal Negative [facility] Comment on above: Performed By: #### A RADHA OBUDS #### [facility] [address] [place] [address] Barbiturate Screen,Urine Negative Normal Negative [facility] Comment on above: Performed By: #### A DDONUAPLUS, OBUDS #### [facility] [address] Benzodiazepines Screen,Urine Negative Normal Negative [facility] Comment on above: Performed By: #### A DDONUAPLUS, OBUDS #### [address] Cocaine Screen,Urine Negative Normal Negative [facility] Comment on above: Performed By: #### A DDONUAPLUS, OBUDS #### [place] [address] [place] Opiate Screen,Urine Negative Normal Negative [facility] Comment on above: Performed By: #### A DDONUAPLUS, OBUDS #### [address] Phencyclidine Screen, Urine Negative Normal Negative [facility] Comment on above: Result Comment: Thes e are unconfirmed results and should not be used for legal purposes. Drug Cut-Off Concentration: AMPH 1000 ng/mL DONALD 200 ng/mL CHIDI 200 ng/mL COCM 300 ng/mL OP 300 ng/mL PCP 25 ng/mL PERFORMED BY: [place] [address] PATHOLOGIST LEGAL CASHIER ROWDY KEY M.D. Performed By: #### A DDONUAPLUS, OBUDS #### [address] Phencyclidine Screen Ql (U)O rdered By: MARIAH TADEO on 06-25-2022 Phencyclidine Ql (U) Negative Negative [facility] Comment on above: These are unconfirme d results and should not be used for legal purposes. Drug Cut-Off Concentration: AMPH 1000 ng/mL DONALD 200 ng/mL CHIDI 200 ng/mL COCM 300 ng/mL OP 300 ng/mL PCP 25 ng/mL Protein Auto test strip (U) [Mass/Vol]Ordered By: MARIAH TADEO on 06-25-2022 Protein (U) [Mass/Vol] Negative Negative [facility] Reagin Ab [Presence] in Seru m by RPROrdered By: MARIAH TADEO on 06-25-2022 Reagin Ab RPR Ql (S) Non-Reactive Non Reactive [facility] Comment on above: Performed at: - [facility] [id number] Director: Herman Weston PhD, Phone: [phone] Sammi Ag Negativeon 06-25-20 Sammi Ag Negative Negative Normal Negative [facility] Comment on above: Result Comment: This is a duplicate Sammi SARS Antigen (ANGELIC) result to be used for statistical tracking purpose only. PERFORMED BY: [place] [address] PATHOLOGIST LEGAL CASHIER ROWDY KEY M.D. Performed By: #### C - SAMMI, SOFIANEG #### [address] Specific gravity Auto test s trip (U) [Rel density]Ordered By: MARIAH TADEO on 06-25-2022 Specific gravity (U) [Rel density] 1.012 1.001-1.[address] [facility] Squamous epithelial cells de tection in urine sediment by light microscopyOrdered By: MARIAH TADEO on 06-25-2022 Epithelial cells.squamous LM Ql (Urine sed) 0-1 [HPF] 0-[address] [facility] Urine bacteria detection by automated methodOrdered By: MARIAH TADEO on 06-25-2022 Bacteria Auto Ql (U) None seen None Seen [facility] Urine clarity by refractomet ry automatedOrdered By: MARIAH TADEO on 06-25-2022 Clarity Refractometry automated (U) Clear Clear [facility] Urine cocaine detectionOrder ed By: MARIAH TADEO on 06-25-2022 Cocaine Ql (U) Negative Negative [facility] Urine glucose measurement by automated test strip (mass/volume)Ordered By: MARIAH TADEO on 06-25-2022 Glucose Auto test strip (U) [Mass/Vol] Normal mg/dL Normal [facility] Urine hemoglobin detection b y automated test stripOrdered By: MARIAH TADEO on 06-25-2022 Hemoglobin Auto test strip Ql (U) Negative Negative [facility] Urine leukocyte esterase det ection by automated test stripOrdered By: MARIAH TADEO on 06-25-2022 Leukocyte esterase Auto test strip Ql (U) 1+ Negative [facility] Urobilinogen Auto test strip (U) [Mass/Vol]Ordered By: MARIAH TADEO on 06-25-2022 Urobilinogen (U) [Mass/Vol] Normal mg/dL Normal [facility] pH Auto test strip (U)Ordere d By: MARIAH TADEO on 06-25-2022 pH (U) 6.5 [pH] 5.0-9.[address] [facility] Amphetamine Screen Ql (U)Ord ered By: MARIAH TADEO on 06-12-2022 Amphetamines Ql (U) Negative Negative [facility] Automated erythrocytes count in urine sediment (number/area)Ordered By: MARIAH TADEO on 06-12-2022 RBC Auto (Urine sed) [#/Area] None seen [HPF] 0-[address] [facility] Automated leukocytes count i n urine sediment (number/area)Ordered By: MARIAH TADEO on 06-12-2022 WBC Auto (Urine sed) [#/Area] 1-2 [HPF] 0-[address] [facility] Automated urine color determ inationOrdered By: MARIAH TADEO on 06-12-2022 Color (U) Yellow Normal Yellow [facility] Comment on above: Order Comment: Name Collection Type:: Clean-Voided Midstream Performed By: #### O BUDS, ADDONUAPLUS #### [address] Barbiturates [Presence] in U rineOrdered By: MARIAH TADEO on 06-12-2022 Barbiturates Ql (U) Negative Negative [facility] Benzodiazepines [Presence] i n UrineOrdered By: MARIAH TADEO on 06-12-2022 Benzodiazepines Ql (U) Negative Negative [facility] Bilirubin Test strip Ql (U)O rdered By: MARIAH TADEO on 06-12-2022 Bilirubin Ql (U) Negative Negative [facility] Dipstick and Microscopicon 1 Appearance (U) Cloudy Critically abnormal Clear [facility] Comment on above: Order Comment: Name Collection Type:: Clean-Voided Midstream Performed By: #### O BUDS, ADDONUAPLUS #### [facility] [address] [place] [address] [place] Bacteria,Urine None Seen Normal None Seen [facility] Comment on above: Order Comment: Name Collection Type:: Clean-Voided Midstream Performed By: #### O BUDS, ADDONUAPLUS #### [facility] [address] [place] [address] [place] Bilirubin,Urine Negative Normal Negative [facility] Comment on above: Order Comment: Name Collection Type:: Clean-Voided Midstream Performed By: #### O BUDS, ADDONUAPLUS #### [facility] [address] [place] [address] [place] Glucose Ql (U) Normal Normal Normal [facility] Comment on above: Order Comment: Name Collection Type:: Clean-Voided Midstream Performed By: #### O BUDS, ADDONUAPLUS #### [facility] [address] [place] [address] [place] Hyaline Casts,Urine 0-8 Normal 0-8 [facility] Comment on above: Order Comment: Name Collection Type:: Clean-Voided Midstream Result Comment: PERF ORMED BY: [place] [address] PATHOLOGIST LEGAL CASHIER ROWDY KEY M.D. Performed By: #### O BUDS, ADDONUAPLUS #### [facility] [address] [place], [place] [id number] [place] Ketones Ql (U) Negative Normal Negative [facility] Comment on above: Order Comment: Name Collection Type:: Clean-Voided Midstream Performed By: #### O BUDS, ADDONUAPLUS #### [facility] [address] [place] [address] [place] Leukocyte esterase Test strip Ql (U) Negative Normal Negative [facility] Comment on above: Order Comment: Name Collection Type:: Clean-Voided Midstream Performed By: #### O BUDS, ADDONUAPLUS #### [facility] [address] [place] [address] [place] Nitrite,Urine Negative Normal Negative [facility] Comment on above: Order Comment: Name Collection Type:: Clean-Voided Midstream Performed By: #### O BUDS, ADDONUAPLUS #### [facility] [address] [place] [address] [place] Occult Blood,Urine Negative Normal Negative [facility] Comment on above: Order Comment: Name Collection Type:: Clean-Voided Midstream Result Comment: PERF ORMED BY: [place] [address] PATHOLOGIST LEGAL CASHIER ROWDY KEY M.D. Performed By: #### O BUDS, ADDONUAPLUS #### [address] Protein,Urine Negative Normal Negative [facility] Comment on above: Order Comment: Name Collection Type:: Clean-Voided Midstream Performed By: #### O BUDS, ADDONUAPLUS #### [facility] [address] [place] [address] RBC,Urine None Seen Normal 0-[address] [facility] Comment on above: Order Comment: Name Collection Type:: Clean-Voided Midstream Performed By: #### O BUDS, ADDONUAPLUS #### [address] Specificy [place],Urine 1.008 Normal 1.001-1.[address] [facility] Comment on above: Order Comment: Name Collection Type:: Clean-Voided Midstream Performed By: #### O BUDS, ADDONUAPLUS #### [place] [address] [place] Squamous Epithelial Cell,Urine 0-1 Normal 0-[address] [facility] Comment on above: Order Comment: Name Collection Type:: Clean-Voided Midstream Performed By: #### O BUDS, ADDONUAPLUS #### [place] [address] [place] Urobilinogen,Urine Normal Normal Normal [facility] Comment on above: Order Comment: Name Collection Type:: Clean-Voided Midstream Performed By: #### O BUDS, ADDONUAPLUS #### [facility] [address] [place] [address] [place] WBC,Urine 1-2 Normal 0-[address] [facility] Comment on above: Order Comment: Name Collection Type:: Clean-Voided Midstream Performed By: #### O BUDS, ADDONUAPLUS #### [facility] [address] [place] [address] [place] Ketones Auto test strip (U) [Mass/Vol]Ordered By: MARIAH TADEO on 06-12-2022 Ketones (U) [Mass/Vol] Negative Negative [facility] - Drug toxicology Ordered By: MARIAH TADEO on 06-12-2022 Opiates Ql (U) Negative Negative [facility] - UrinalysisOrder ed By: MARIAH TADEO on 06-12-2022 Hyaline casts LM Ql (Urine sed) 0-8 [LPF] 0-[address] [facility] Nitrite Test strip Ql (U)Ord ered By: MARIAH TADEO on 06-12-2022 Nitrite Ql (U) Negative Negative [facility] OB Urine Drug Screen (NO THC )on 06-12-2022 Amphetamine Screen,Urine Negative Normal Negative [facility] Comment on above: Performed By: #### C OVID-19 SAMMI, SOFIANEG #### [facility] [address] [place] [address] [place] Barbiturate Screen,Urine Negative Normal Negative [facility] Comment on above: Performed By: #### C OVID-19 SAMMI, SOFIANEG #### [facility] [address] [place] [address] [place] Benzodiazepines Screen,Urine Negative Normal Negative [facility] Comment on above: Performed By: #### C OVID-19 SAMMI, SOFIANEG #### [facility] [address] [place] [address] [place] Cocaine Screen,Urine Negative Normal Negative [facility] Comment on above: Performed By: #### C OVID-19 SAMMI, SOFIANEG #### [facility] [address] [place] [address] [place] Opiate Screen,Urine Negative Normal Negative [facility] Comment on above: Performed By: #### C OVID-19 SAMMI SOFIANEG #### [facility] [address] Phencyclidine Screen, Urine Negative Normal Negative [facility] Comment on above: Result Comment: Thes e are unconfirmed results and should not be used for legal purposes. Drug Cut-Off Concentration: AMPH 1000 ng/mL DONALD 200 ng/mL CHIDI 200 ng/mL COCM 300 ng/mL OP 300 ng/mL PCP 25 ng/mL PERFORMED BY: [facility] [address] [place] [address] PATHOLOGIST LEGAL CASHIER ROWDY KEY M.D. Performed By: #### C OVID-19 SAMMI SOFIANEG #### [facility] [address] Phencyclidine Screen Ql (U)O rdered By: MARIAH TADEO on 06-12-2022 Phencyclidine Ql (U) Negative Negative [facility] Comment on above: These are unconfirme d results and should not be used for legal purposes. Drug Cut-Off Concentration: AMPH 1000 ng/mL DONALD 200 ng/mL CHIDI 200 ng/mL COCM 300 ng/mL OP 300 ng/mL PCP 25 ng/mL Protein Auto test strip (U) [Mass/Vol]Ordered By: MARIAH TADEO on 06-12-2022 Protein (U) [Mass/Vol] Negative Negative [facility] Specific gravity Auto test s trip (U) [Rel density]Ordered By: MARIAH TADEO on 06-12-2022 Specific gravity (U) [Rel density] 1.008 1.001-1.[address] [facility] Squamous epithelial cells de tection in urine sediment by light microscopyOrdered By: MARIAH TADEO on 06-12-2022 Epithelial cells.squamous LM Ql (Urine sed) 0-1 [HPF] 0-[address] [facility] Urine bacteria detection by automated methodOrdered By: MARIAH TADEO on 06-12-2022 Bacteria Auto Ql (U) None seen None Seen [facility] Urine clarity by refractomet ry automatedOrdered By: MARIAH TADEO on 06-12-2022 Clarity Refractometry automated (U) Cloudy Clear [facility] Urine cocaine detectionOrder ed By: MARIAH TADEO on 06-12-2022 Cocaine Ql (U) Negative Negative [facility] Urine glucose measurement by automated test strip (mass/volume)Ordered By: MARIAH TADEO on 06-12-2022 Glucose Auto test strip (U) [Mass/Vol] Normal mg/dL Normal [facility] Urine hemoglobin detection b y automated test stripOrdered By: MARIAH TADEO on 06-12-2022 Hemoglobin Auto test strip Ql (U) Negative Negative [facility] Urine leukocyte esterase det ection by automated test stripOrdered By: MARIAH TADEO on 06-12-2022 Leukocyte esterase Auto test strip Ql (U) Negative Negative [facility] Urine pH measurement by auto mated test stripOrdered By: MARIAH TADEO on 06-12-2022 pH (U) 7.0 [pH] Normal 5.0-9.[address] [facility] Comment on above: Order Comment: Name Collection Type:: Clean-Voided Midstream Performed By: #### BALJIT CASE #### [address] Urobilinogen Auto test strip (U) [Mass/Vol]Ordered By: MARIAH TADEO on 06-12-2022 Urobilinogen (U) [Mass/Vol] Normal mg/dL Normal [facility] S. agalactiae Org specific c x Ql (Unsp spec)Ordered By: MARIAH TADEO on 06-07-2022 Streptococcus agalactiae culture No Group B Beta Streptococcus Isolated [address] [facility] Strep B Cultureon 06-03-2022 Strep B Culture Reason for Exam 36 weeks gestation of ;Antenata l screening for stre Vaginal/Rectal Reason for Exam: 36 weeks gestation of ;Antenata l screening for stre : Vaginal/Rectal No Group B Beta Streptococcus Isolated 3 Days PERFORMED BY: [place] [address] PATHOLOGIST LEGAL CASHIER ROWDY KEY M.D. [facility] Comment on above: Performed By: #### C USTB #### [address] Vital Signs Date Time Vital Sign Value Performing Clinician Manuel mathew 07-24-2024 09:58-0500 Blood Pressure Location Rosa Elena Forman [facility] 07-24-2024 09:58-0500 Body temperature 97.52 [degF] Rosa Elena Engeldner [facility] 07-24-2024 09:58-0500 Diastolic blood pressure 80 mm[Hg] Rosa Elena Marendner [facility] 07-24-2024 09:58-0500 Heart rate 89 /min Rosa Elena Juaner [facility] 07-24-2024 09:58-0500 SaO2% (BldA) [Mass fraction] 96 % Rosa Elena Juaner [facility] 07-24-2024 09:58-0500 Systolic blood pressure 122 mm[Hg] Rosa Elena Marendner [facility] 07-06-2024 16:19-0400 Body mass index (BMI) [Ratio] 34.02 kg/m2 Mariah Nataprawira DO Work Phone: [facility] 07-06-2024 16:19-0400 Body weight 97.07 kg Mariah Nataprawira DO Work Phone: [facility] 07-06-2024 16:19-0400 Diastolic blood pressure 80 mm[Hg] Mariah Nataprawira DO Work Phone: [facility] 07-06-2024 16:19-0400 Systolic blood pressure 126 mm[Hg] Mariah Nataprawira DO Work Phone: [facility] 06-08-2024 15:44-0400 Body mass index (BMI) [Ratio] 33.55 kg/m2 Marly Odell [employer] Work Phone: [facility] 06-08-2024 15:44-0400 Body weight 95.71 kg Marly Odell [employer] Work Phone: [facility] 06-08-2024 15:44-0400 Diastolic blood pressure 78 mm[Hg] Marly Odell [employer] Work Phone: [facility] 06-08-2024 15:44-0400 Systolic blood pressure 128 mm[Hg] Marly Odell [employer] Work Phone: [facility] 12-04-2023 10:20-0400 Blood Pressure Location SHAMEKA CHEN [facility] 12-04-2023 10:20-0400 Body temperature 98.24 [degF] [facility] 12-04-2023 10:20-0400 Diastolic blood pressure 70 mm[Hg] [facility] 12-04-2023 10:20-0400 Heart rate 75 /min [facility] 12-04-2023 10:20-0400 SaO2% (BldA) [Mass fraction] 98 % [facility] 12-04-2023 10:20-0400 Systolic blood pressure 110 mm[Hg] [place] CH[place] [facility] 03-21-2023 11:34-0400 Blood Pressure Location Erin OrMoseo [email or web address] [facility] 03-21-2023 11:34-0400 Body temperature 97.7 [degF] Erin Orzech [facility] 03-21-2023 11:34-0400 Diastolic blood pressure 72 mm[Hg] Needzech [facility] 03-21-2023 11:34-0400 Heart rate 71 /min Erin Orzech [facility] 03-21-2023 11:34-0400 SaO2% (BldA) [Mass fraction] 97 % INCIDE Orzech [facility] 03-21-2023 11:34-0400 Systolic blood pressure 120 mm[Hg] Erin [employer] [facility] 06-28-2022 07:30-0400 Body temperature 98 [degF] PHYSICIAN NO [facility] 06-28-2022 07:30-0400 Diastolic blood pressure 81 mm[Hg] PHYSICIAN NO [facility] 06-28-2022 07:30-0400 Heart rate 70 /min PHYSICIAN NO [facility] 06-28-2022 07:30-0400 Respiratory rate 16 /min PHYSICIAN NO [facility] 06-28-2022 07:30-0400 SaO2% (BldA) [Mass fraction] 96 % PHYSICIAN NO [facility] 06-28-2022 07:30-0400 Systolic blood pressure 125 mm[Hg] PHYSICIAN NO [facility] 06-25-2022 22:02-0400 Body height 167.64 cm PHYSICIAN NO [facility] 06-25-2022 22:02-0400 Body weight 102.51 kg PHYSICIAN NO [facility] 06-12-2022 13:00-0400 Respiratory rate 20 /min PHYSICIAN NO [facility] 06-12-2022 12:49-0400 Body temperature 97 [degF] PHYSICIAN NO [facility] 06-12-2022 12:49-0400 Diastolic blood pressure 81 mm[Hg] PHYSICIAN NO [facility] 06-12-2022 12:49-0400 Heart rate 82 /min PHYSICIAN NO [facility] 06-12-2022 12:49-0400 SaO2% (BldA) [Mass fraction] 96 % PHYSICIAN NO [facility] 06-12-2022 12:49-0400 Systolic blood pressure 122 mm[Hg] PHYSICIAN NO [facility] 06-12-2022 11:37-0400 Body height 170.18 cm PHYSICIAN NO [facility] 06-12-2022 11:37-0400 Body weight 101.15 kg PHYSICIAN NO [facility] Encounters Encounter Date Encounter Type Care Provider Facility Start: 07-24-2024 End: 07-24-2024 Patient encounter procedure Rosa Elena Forman [facility] Start: 07-06-2024 End: 07-06-2024 flow sheet Mariah Chackora DO Work Phone: [facility] Comment on above: related co ndition, second trimester (Primary Dx); 24 weeks gestation of ; Screening for diabetes mellitus; Other obesity due to excess calories affecting in second trimester Start: 07-06-2024 End: 07-06-2024 ambulatory MARIAH TADEO Not Available Start: 07-06-2024 End: 07-06-2024 Bamboo flowsheet Mariah Chackora DO Work Phone: [facility] Start: 07-06-2024 End: 07-06-2024 Bamboo flowsheet Mariah Hamawira DO Work Phone: [facility] Start: 06-08-2024 End: 06-08-2024 flow sheet Marly Odell [employer] Work Phone: [facility] Comment on above: related co ndition, second trimester (Primary Dx); 20 weeks gestation of Start: 06-08-2024 End: 06-08-2024 ambulatory MARLY ODELL Not Available Start: 05-10-2024 End: 05-10-2024 ambulatory MARLY ODELL Not Available Start: 04-12-2024 End: 04-12-2024 ambulatory MARLY ODELL Not Available Start: 03-16-2024 End: 03-16-2024 ambulatory MARLY ODELL Not Available Start: 03-01-2024 End: 03-01-2024 ambulatory MARLY ODELL Not Available Start: 12-04-2023 End: 12-04-2023 Patient encounter procedure SHAMEKA PEREIRATIZ [facility] Start: 03-21-2023 End: 03-22-2023 ambulatory Erin X Orzech Facility:[facility] [place] Start: 03-21-2023 End: 03-21-2023 Patient encounter procedure Erin X Orzech [facility] Start: 06-25-2022 End: 06-28-2022 Evaluation and management of inpatient Mariah Nataprawira Facility:[facility] Start: 06-25-2022 End: 06-28-2022 Evaluation and management of inpatient PHYSICIAN NO [facility] Start: 06-12-2022 End: 06-12-2022 ambulatory Mariah Nataprawira Facility:[facility] Start: 06-12-2022 End: 06-12-2022 ambulatory PHYSICIAN NO [facility] Work Phone: Start: 06-12-2022 End: 06-12-2022 Patient encounter procedure PHYSICIAN NO [facility] - O/P Start: 06-03-2022 End: 06-03-2022 ambulatory Mariah Nataprawira Facility:[facility] Start: 06-03-2022 End: 06-03-2022 Departed Referred PHYSICIAN NO [facility] [place] Procedures Date Procedure Procedure Detail Performing Clinician Start: 07-06-2024 Urnls dip stick/tabl et rgnt non-auto w/o micrscp Mariah J Nataprawira DO Work Phone: Start: 06-08-2024 Urnls dip stick/tabl et rgnt non-auto w/o micrscp Mariah Tadeo DO Work Phone: [facility]ef[facility]man SARS Antigen (LFIA) PHYSICIA N NO FAMILY Streptococcus agalac tiae culture PHYSICIAN NO FAMILY Plan of Treatment Date Care Activity Detail Author Start: 08-25-2024 End: 08-25-2024 Patient encounter procedure 08/25/2024 3:45 PM EST Routine [facility] [address] [address] Mariah Tadeo DO [address] [address] [facility] Start: 08-25-2024 End: 08-25-2024 Professional / ancillary services management 08/25/2024 3:00 PM EST Ancillary Procedure [facility] [address] [address] [facility] Start: 08-03-2024 End: 08-03-2024 Patient encounter procedure 08/03/2024 10:40 AM EST Routine [facility] [address] [address] Marly Odell NP [address] [place] [address] [facility] Start: 07-06-2024 End: 07-06-2024 Patient encounter procedure 07/06/2024 3:45 PM EDT Routine [facility] [address] [address] Mariah Tadeo DO [address] [address] related condition, second trimester (Primary Dx); 24 weeks gestation of ; Screening for diabetes mellitus [facility] Comment on above: related co ndition, second trimester (Primary Dx); 24 weeks gestation of ; Screening for diabetes mellitus Start: 05-08-2024 Influenza vaccination Influenza Vacc ine (#1) [facility] Start: 06-28-[address] [facility] Start: 06-25-2022 Hospital admission [facility] Start: 06-12-[address] [facility] Start: 06-12-2022 Hospital admission [facility] Hemoglobin [Mass/vol ume] in Blood Hemoglobin and hematocrit, blood Lab Routine Screening for diabetes mellitus Ordered: 06/29/2024 [facility] Work Phone: Comment on above: Ordered: 06/29/2024 Measurement of gluco se 1 hour after glucose challenge for glucose tolerance test Glucose tolerance, 1 hour Lab Routine Screening for diabetes mellitus Ordered: 06/29/2024 [facility] Comment on above: Ordered: 06/29/2024 Patient Education [facility] Work Phone: [facility] referral [facility] Work Phone: Immunizations Immunization Date Immunization Notes Care Provider Carolyn sutherland NEGATED: Highlighted row has not occurred!12-04-2023 influenza virus vaccine, unspecified formulation SHAMEKA CHEN [facility] NEGATED: Highlighted row has not occurred!12-04-2023 SARS-CoV-2 mRNA (tozinameran 5y-11y) vaccine SHAMEKA CHEN [facility] NEGATED: Highlighted row has not occurred!03-21-2023 SARS-CoV-2 mRNA (tozinameran 5y-11y) vaccine Erin Holman [facility] NEGATED: Highlighted row has not occurred!06-28-2022 tetanus toxoid, reduced diphtheria toxoid, and acellular pertussis vaccine, adsorbed PHYSICIAN NO FAMILY [facility] NEGATED: Highlighted row has not occurred!09-30-2019 influenza virus vaccine, live, attenuated, for intranasal use Erin River [facility] Comment on above: Result Comment: we d on't offer at this clinic Payers Date Payer Category Payer [employer] [id number] 2022 Unknown [id number] 2022 Unknown [id number] 2022 Self-pay 2022 Private Health Insurance [employer] [id number] 2022 Unknown [id number] 2022 Unknown [id number] 2016 Unknown [id number] 1997 Unknown [id number] 727 1997 Unknown [id number]. 1259 1997 Unknown [id number]. 1259 1997 Unknown [id number] [id number]. 1259 1997 Unknown [id number] [id number]. 1259 1997 Unknown [id number] [id number]. 1259 1997 Unknown [id number]. 1259 1997 Unknown [id number]. 1259 Unknown [id number]. 531 Unknown [id number]. 531 Unknown [id number] 531 Social History Date Type Detail Facility Tobacco smoking stat [facility] Unknown if ever smoked [facility] Work Phone: Start: 1995 Sex Assigned At Female F [facility] Start: 06-25-2022 End: 12-04-2023 Tobacco smoking status KSIS Never smoked tobacco (finding) [facility] Tobacco smoking status Never [facility] Start: 03-01-2024 End: 04-12-2024 [facility] Start: 02-24-2023 Tobacco use and exposure Smoke less tobacco non-user [facility] Start: 04-12-2024 Alcoholic beverage intake Ex-drinker (finding) [facility] Start: 03-01-2024 End: 04-12-2024 History of Social function [facility] Within the last year , have you been afraid of your partner or ex-partner? No [facility] Do you belong to any clubs or organizations such as orthodoxy groups, [employer], [employer] or athletic groups, or school groups? Yes [facility] Are you now , , , , never or living with a partner? [facility] How often to you hav e a drink containing alcohol? Monthly or less [facility] How many standard dr inks containing alcohol do you have on a typical day? 1 or 2 [facility] How often do you hav e 6 or more drinks on 1 occasion? Never [facility] Do you feel stress - tense, restless, nervous, or anxious, or unable to sleep at night because your mind is troubled all the time - these days [OSQ] Only a little [facility] (I/We) worried wheth er (my/our) food would run out before (I/we) got money to buy more. Never true [facility] Start: 02-25-2023 Education 17 [facility] Start: 02-25-2023 Alcohol Comment caffeine intak e : none [facility] Start: 02-01-2024 [facility] Start: 1995 Sex assigned at Not on file [facility] Goals Date Patient Goal Desired Activity /State Functional Status Date Assessment Result Facility 12-04-2023 Functional Status N/A [facility] 03-21-2023 Functional Status N/A [facility] 06-28-2022 Functional status Patient at [facility] Work Phone: Mental Status Date Assessment Result Facility 06-28-2022 Cognitive function Cognitive Sta tus Patient at Baseline [facility] Work Phone: Clinical Notes 06-26-2022 to 07-24-2024 Mary Pruitt MA - 07/06/2024 3:45 PM Ed Tadeo DO - 07/06/2024 3:45 PM Estrellita Odell NP - 06/08/2024 3:30 PM EDT Note Date & Type Note Facility 07-24-2024 Hospital Discharg e instructions Patient Education 07/24/2024 10:39:53 Cough, Adult, Xrew-lh-Dfvk Cough, Adult A cough helps to clear your throat and lungs. It may be a sign of an illness or another condition. A short-term (acute) cough may last 2 3 weeks. A long-term (chronic) cough may last 8 or more weeks. Many things can cause a cough. They include: Illnesses such as: ?An infection in your throat or lungs. ?Asthma or other heart or lung problems. ?Gastroesophageal reflux. This is when acid comes back up from your stomach. Breathing in things that bother (irritate) your lungs. Allergies. Postnasal drip. This is when mucus runs down the back of your throat. Smoking. Some medicines. Follow these instructions at home: Medicines Take nvyi-sei-luyjpqm and prescription medicines only as told by your doctor. Talk with your doctor before you take cough medicine (cough suppressants). Eating and drinking Do not drink alcohol. Do not drink caffeine. Drink enough fluid to keep your pee (urine) pale yellow. Lifestyle Stay away from cigarette smoke. Do not smoke or use any products that contain nicotine or tobacco. If you need help quitting, ask your doctor. Stay away from things that make you cough. These may include perfume, candles, cleaning products, or campfire smoke. General instructions Watch for any changes to your cough. Tell your doctor about them. Always cover your mouth when you cough. If the air is dry in your home, use a cool mist vaporizer or humidifier. If your cough is worse at night, try using extra pillows to raise your head up higher while you sleep. Rest as needed. Contact a doctor if: You have new symptoms. Your symptoms get worse. You cough up pus. You have a fever that does not go away. Your cough does not get better after 2 3 weeks. Cough medicine does not help, and you are not sleeping well. You have pain that gets worse or is not helped with medicine. You are losing weight and do not know why. You have night sweats. Get help right away if: You cough up blood. You have trouble breathing. Your heart is beating very fast. These symptoms may be an emergency. Get help right away. Call 911. Do not wait to see if the symptoms will go away. Do not drive yourself to the hospital. This information is not intended to replace advice given to you by your health care provider. Make sure you discuss any questions you have with your health care provider. Document Revised: 04/24/2023 Document Reviewed: 04/24/2023 [employer] Patient Education [address] [employer] [facility] 07-06-2024 History of Presen t illness Narrative Glucola order, Tdap information, and kick count sheet provided for the patient. Denies any complaints. Growth us in 7w documented in this encounter [facility] 06-08-2024 History of Presen t illness Narrative Anatomy US today: EFW 36%, 3VC, post placenta, ZEHRA NL, normal anatomy, cx 42mm. Feeling movement, doing well. documented in this encounter [facility] 12-04-2023 Hospital Discharg e instructions Patient Education 12/04/2023 14:09:28 BMI for Adults BMI for Adults What is BMI? Body mass index (BMI) is a number that is calculated from a person's weight and height. BMI can help estimate how much of a person's weight is composed of fat. BMI does not measure body fat directly. Rather, it is an alternative to procedures that directly measure body fat, which can be difficult and expensive. BMI can help identify people who may be at higher risk for certain medical problems. What are BMI measurements used for? BMI is used as a screening tool to identify possible weight problems. It helps determine whether a person is obese, overweight, a healthy weight, or underweight. BMI is useful for: Identifying a weight problem that may be related to a medical condition or may increase the risk for medical problems. Promoting changes, such as changes in diet and exercise, to help reach a healthy weight. BMI screening can be repeated to see if these changes are working. How is BMI calculated? BMI involves measuring your weight in relation to your height. Both height and weight are measured, and the BMI is calculated from those numbers. This can be done either in [place] ([place] or metric measurements. Note that charts and online BMI calculators are available to help you find your BMI quickly and easily without having to do these calculations yourself. To calculate your BMI in [place]ese ([place] measurements: 1.Measure your weight in pounds (lb). 2.Multiply the number of pounds by 703. For example, for a person who weighs 180 lb, multiply that number by 703, which equals 126,540. 3.Measure your height in inches. Then multiply that number by itself to get a measurement called inches squared. For example, for a person who is 70 inches tall, the inches squared measurement is 70 inches x 70 inches, which equals 4,900 inches squared. 4.Divide the total from step 2 (number of lb x 703) by the total from step 3 (inches squared): 126,540 4,900 = 25.8. This is your BMI. To calculate your BMI in metric measurements: 1.Measure your weight in kilograms (kg). 2.Measure your height in meters (m). Then multiply that number by itself to get a measurement called meters squared. For example, for a person who is 1.75 m tall, the meters squared measurement is 1.75 m x 1.75 m, which is equal to 3.1 meters squared. 3.Divide the number of kilograms (your weight) by the meters squared number. In this example: 70 3.1 = 22.6. This is your BMI. What do the results mean? BMI charts are used to identify whether you are underweight, normal weight, overweight, or obese. The following guidelines will be used: Underweight: BMI less than 18.5. Normal weight: BMI between 18.5 and 24.9. Overweight: BMI between 25 and 29.9. Obese: BMI of 30 or above. Keep these notes in mind: Weight includes both fat and muscle, so someone with a muscular build, such as an athlete, may have a BMI that is higher than 24.9. In cases like these, BMI is not an accurate measure of body fat. To determine if excess body fat is the cause of a BMI of 25 or higher, further assessments may need to be done by a health care provider. BMI is usually interpreted in the same way for men and women. Where to find more information For more information about BMI, including tools to quickly calculate your BMI, go to these websites: Centers for Disease Control and Prevention: www.cdc.gov [place] [employer]: www.heart.org National Heart, Lung, and Blood [place]: www.nhlbi.nih.gov Summary Body mass index (BMI) is a number that is calculated from a person's weight and height. BMI may help estimate how much of a person's weight is composed of fat. BMI can help identify those who may be at higher risk for certain medical problems. BMI can be measured using [place]ese measurements or metric measurements. BMI charts are used to identify whether you are underweight, normal weight, overweight, or obese. This information is not intended to replace advice given to you by your health care provider. Make sure you discuss any questions you have with your health care provider. Document Revised: 05/16/2020 Document Reviewed: 03/23/2020 [employer] Patient Education 2022 [employer]. 12/04/2023 14:09:25 Knee Sprain, Adult, Vkfy-zl-Cuer Knee Sprain A knee sprain is a stretch or tear in a knee ligament. Knee ligaments are tissues that connect bones in the knee to each other. What are the causes? This condition often results from: A fall. An injury to the knee. What are the signs or symptoms? Symptoms of this condition include: Trouble straightening or bending the leg. Swelling in the knee. Bruising around the knee. Tenderness or pain in the knee. Sudden muscle tightening (spasms) around the knee. How is this treated? Treatment for this condition may involve: Keeping the knee still (immobilized) with a cast, brace, or splint. Putting ice on the knee. This helps with pain and swelling. Raising (elevating) the knee above the level of your heart when you are resting. This helps with pain and swelling. Taking medicine for pain. Doing exercises to keep your knee from being weak or stiff. Having surgery. This may be needed if the ligament is completely torn. Follow these instructions at home: If you have a splint or brace: Wear it as told by your doctor. Remove it only as told by your doctor. Check the skin around it every day. Tell your doctor about any concerns. Loosen it if your toes: ?Tingle. ?Become numb. ?Turn cold and blue. Keep it clean and dry. If you have a cast: Do not stick anything inside it to scratch your skin. Check the skin around it every day. Tell your doctor about any concerns. You may put lotion on dry skin around the edges of the cast. Do not put lotion on the skin under the cast. Keep it clean and dry. Bathing If you have a splint, brace, or cast that is not waterproof: Do not let it get wet. Cover it with a watertight covering when you take a bath or a shower. Managing pain, stiffness, and swelling If told, put ice on the injured area. To do this: ?If you have a removable splint or brace, remove it as told by your doctor. ?Put ice in a plastic bag. ?Place a towel between your skin and the bag or between your cast and the bag. ?Leave the ice on for 20 minutes, 2 3 times a day. Move your toes often to reduce stiffness and swelling. Raise the injured area above the level of your heart while you are sitting or lying down. General instructions Take uwnd-agh-xnbyiqx and prescription medicines only as told by your doctor. Do not use any products that contain nicotine or tobacco, such as cigarettes, e-cigarettes, and chewing tobacco. These can delay healing. If you need help quitting, ask your doctor. Do exercises as told by your doctor. Keep all follow-up visits as told by your doctor. This is important. Contact a doctor if: Your pain gets worse. The cast, brace, or splint does not fit right. The cast, brace, or splint gets damaged. Get help right away if: You cannot use your knee to support your body weight (bear weight) for standing or walking. You cannot move the injured area. Your knee cb or you have pain after you walk only a few steps. You have very bad pain, swelling, or numbness in your leg below the cast, brace, or splint. Your foot or toes are numb, cold, or blue after loosening your splint or brace. Summary A knee sprain is a stretch or tear in a tissue (ligament) that connects your knee bones to each other. You may need to wear a splint, brace, or cast to keep the knee still while it is getting better. Surgery may be needed if the ligament is completely torn. This information is not intended to replace advice given to you by your health care provider. Make sure you discuss any questions you have with your health care provider. Document Revised: 12/01/2022 Document Reviewed: 07/13/2020 [employer] Patient Education 2022 [employer]. Follow Up Care 12/04/2023 09:04:53 With:NONE, XXXX Address: [phone] When: Unknown [facility] 03-21-2023 Hospital Discharg e instructions Patient Education 03/21/2023 12:17:23 Otitis Externa Otitis Externa Otitis externa is an infection of the outer ear canal. The outer ear canal is the area between the outside of the ear and the eardrum. Otitis externa is sometimes called swimmer's ear. What are the causes? Common causes of this condition include: Swimming in dirty water. Moisture in the ear. An injury to the inside of the ear. An object stuck in the ear. A cut or scrape on the outside of the ear or in the ear canal. What increases the risk? You are more likely to develop this condition if you go swimming often. What are the signs or symptoms? The first symptom of this condition is often itching in the ear. Later symptoms of the condition include: Swelling of the ear. Redness in the ear. Ear pain. The pain may get worse when you pull on your ear. Pus coming from the ear. How is this diagnosed? This condition may be diagnosed by examining the ear and testing fluid from the ear for bacteria and funguses. How is this treated? This condition may be treated with: Antibiotic ear drops. These are often given for 10 14 days. Medicines to reduce itching and swelling. Follow these instructions at home: If you were prescribed antibiotic ear drops, use them as told by your health care provider. Do not stop using the antibiotic even if you start to feel better. Take ldgh-lph-pxusckv and prescription medicines only as told by your health care provider. Avoid getting water in your ears as told by your health care provider. This may include avoiding swimming or water sports for a few days. Keep all follow-up visits. This is important. How is this prevented? Keep your ears dry. Use the corner of a towel to dry your ears after you swim or bathe. Avoid scratching or putting things in your ear. Doing these things can damage the ear canal or remove the protective wax that lines it, which makes it easier for bacteria and funguses to grow. Avoid swimming in lakes, polluted water, or swimming pools that may not have enough chlorine. Contact a health care provider if: You have a fever. Your ear is still red, swollen, painful, or draining pus after 3 days. Your redness, swelling, or pain gets worse. You have a severe headache. Get help right away if: You have redness, swelling, and pain or tenderness in the area behind your ear. Summary Otitis externa is an infection of the outer ear canal. Common causes include swimming in dirty water, moisture in the ear, or a cut or scrape in the ear. Symptoms include pain, redness, and swelling of the ear canal. If you were prescribed antibiotic ear drops, use them as told by your health care provider. Do not stop using the antibiotic even if you start to feel better. This information is not intended to replace advice given to you by your health care provider. Make sure you discuss any questions you have with your health care provider. Document Revised: 11/06/2021 Document Reviewed: 11/06/2021 [employer] Patient Education 2022 [employer]. 03/21/2023 12:17:15 BMI for Adults BMI for Adults What is BMI? Body mass index (BMI) is a number that is calculated from a person's weight and height. BMI can help estimate how much of a person's weight is composed of fat. BMI does not measure body fat directly. Rather, it is an alternative to procedures that directly measure body fat, which can be difficult and expensive. BMI can help identify people who may be at higher risk for certain medical problems. What are BMI measurements used for? BMI is used as a screening tool to identify possible weight problems. It helps determine whether a person is obese, overweight, a healthy weight, or underweight. BMI is useful for: Identifying a weight problem that may be related to a medical condition or may increase the risk for medical problems. Promoting changes, such as changes in diet and exercise, to help reach a healthy weight. BMI screening can be repeated to see if these changes are working. How is BMI calculated? BMI involves measuring your weight in relation to your height. Both height and weight are measured, and the BMI is calculated from those numbers. This can be done either in [place] or metric measurements. Note that charts and online BMI calculators are available to help you find your BMI quickly and easily without having to do these calculations yourself. To calculate your BMI in [place] measurements: 1.Measure your weight in pounds (lb). 2.Multiply the number of pounds by 703. For example, for a person who weighs 180 lb, multiply that number by 703, which equals 126,540. 3.Measure your height in inches. Then multiply that number by itself to get a measurement called inches squared. For example, for a person who is 70 inches tall, the inches squared measurement is 70 inches x 70 inches, which equals 4,900 inches squared. 4.Divide the total from step 2 (number of lb x 703) by the total from step 3 (inches squared): 126,540 4,900 = 25.8. This is your BMI. To calculate your BMI in metric measurements: 1.Measure your weight in kilograms (kg). 2.Measure your height in meters (m). Then multiply that number by itself to get a measurement called meters squared. For example, for a person who is 1.75 m tall, the meters squared measurement is 1.75 m x 1.75 m, which is equal to 3.1 meters squared. 3.Divide the number of kilograms (your weight) by the meters squared number. In this example: 70 3.1 = 22.6. This is your BMI. What do the results mean? BMI charts are used to identify whether you are underweight, normal weight, overweight, or obese. The following guidelines will be used: Underweight: BMI less than 18.5. Normal weight: BMI between 18.5 and 24.9. Overweight: BMI between 25 and 29.9. Obese: BMI of 30 or above. Keep these notes in mind: Weight includes both fat and muscle, so someone with a muscular build, such as an athlete, may have a BMI that is higher than 24.9. In cases like these, BMI is not an accurate measure of body fat. To determine if excess body fat is the cause of a BMI of 25 or higher, further assessments may need to be done by a health care provider. BMI is usually interpreted in the same way for men and women. Where to find more information For more information about BMI, including tools to quickly calculate your BMI, go to these websites: Centers for Disease Control and Prevention: www.cdc.gov [place] [employer]: www.heart.org National Heart, Lung, and Blood [place]: www.nhlbi.nih.gov Summary Body mass index (BMI) is a number that is calculated from a person's weight and height. BMI may help estimate how much of a person's weight is composed of fat. BMI can help identify those who may be at higher risk for certain medical problems. BMI can be measured using [place]ese measurements or metric measurements. BMI charts are used to identify whether you are underweight, normal weight, overweight, or obese. This information is not intended to replace advice given to you by your health care provider. Make sure you discuss any questions you have with your health care provider. Document Revised: 05/16/2020 Document Reviewed: 03/23/2020 [employer] Patient Education 2022 [employer]. 03/21/2023 11:48:46 BMI for Adults BMI for Adults What is BMI? Body mass index (BMI) is a number that is calculated from a person's weight and height. BMI can help estimate how much of a person's weight is composed of fat. BMI does not measure body fat directly. Rather, it is an alternative to procedures that directly measure body fat, which can be difficult and expensive. BMI can help identify people who may be at higher risk for certain medical problems. What are BMI measurements used for? BMI is used as a screening tool to identify possible weight problems. It helps determine whether a person is obese, overweight, a healthy weight, or underweight. BMI is useful for: Identifying a weight problem that may be related to a medical condition or may increase the risk for medical problems. Promoting changes, such as changes in diet and exercise, to help reach a healthy weight. BMI screening can be repeated to see if these changes are working. How is BMI calculated? BMI involves measuring your weight in relation to your height. Both height and weight are measured, and the BMI is calculated from those numbers. This can be done either in [place] or metric measurements. Note that charts and online BMI calculators are available to help you find your BMI quickly and easily without having to do these calculations yourself. To calculate your BMI in [place] measurements: 1.Measure your weight in pounds (lb). 2.Multiply the number of pounds by 703. For example, for a person who weighs 180 lb, multiply that number by 703, which equals 126,540. 3.Measure your height in inches. Then multiply that number by itself to get a measurement called inches squared. For example, for a person who is 70 inches tall, the inches squared measurement is 70 inches x 70 inches, which equals 4,900 inches squared. 4.Divide the total from step 2 (number of lb x 703) by the total from step 3 (inches squared): 126,540 4,900 = 25.8. This is your BMI. To calculate your BMI in metric measurements: 1.Measure your weight in kilograms (kg). 2.Measure your height in meters (m). Then multiply that number by itself to get a measurement called meters squared. For example, for a person who is 1.75 m tall, the meters squared measurement is 1.75 m x 1.75 m, which is equal to 3.1 meters squared. 3.Divide the number of kilograms (your weight) by the meters squared number. In this example: 70 3.1 = 22.6. This is your BMI. What do the results mean? BMI charts are used to identify whether you are underweight, normal weight, overweight, or obese. The following guidelines will be used: Underweight: BMI less than 18.5. Normal weight: BMI between 18.5 and 24.9. Overweight: BMI between 25 and 29.9. Obese: BMI of 30 or above. Keep these notes in mind: Weight includes both fat and muscle, so someone with a muscular build, such as an athlete, may have a BMI that is higher than 24.9. In cases like these, BMI is not an accurate measure of body fat. To determine if excess body fat is the cause of a BMI of 25 or higher, further assessments may need to be done by a health care provider. BMI is usually interpreted in the same way for men and women. Where to find more information For more information about BMI, including tools to quickly calculate your BMI, go to these websites: Centers for Disease Control and Prevention: www.cdc.gov [place] [employer]: www.heart.org National Heart, Lung, and Blood [place]: www.nhlbi.nih.gov Summary Body mass index (BMI) is a number that is calculated from a person's weight and height. BMI may help estimate how much of a person's weight is composed of fat. BMI can help identify those who may be at higher risk for certain medical problems. BMI can be measured using [place]ese measurements or metric measurements. BMI charts are used to identify whether you are underweight, normal weight, overweight, or obese. This information is not intended to replace advice given to you by your health care provider. Make sure you discuss any questions you have with your health care provider. Document Revised: 05/16/2020 Document Reviewed: 03/23/2020 [employer] Patient Education 2022 Pneum[employer]. Follow Up Care 03/21/2023 10:57:12 With:NONE, XXXX Address: [phone] When: Unknown [facility] 06-28-2022 Progress note Note Date/Time June 28, 2022 11:31am [facility] [address] [place] [address] [employer] Progress Note Signed Patient: Tiffanie Ochoa MR#: [id number] : 1995 Acct:[id number] Age/Sex: 26 / F Adm Date: 2 Loc: Room: [address] [place] [address] Type: ADM IN Attending Dr: Mariah Tadeo DO Copies to: ~ Date of Service: 06/28/2022 OB - PN: Subj Subjective Post Delivery Day #: Day 2 Interval history: Patient is doing well and denies complaints. She is having cramps. Pain is tolerable. She is ambulating and urinating without difficulty. She has not hada bowel movement and is passing flatus. She is tolerating food without nausea/vomiting. Patient reports minimal vaginal bleeding. Patient denies lightheadedness, dizziness, SOB, swelling, or calf tenderness OB - PN: Obj Exam Physical Exam Vital signs: Vital Signs - 8 hr 06/28/22 01:00 06/28/22 07:30 Temperature 97.7 F 98.0 F Pulse Rate [Monitor] 67 70 Respiratory Rate 18 16 Blood Pressure [Left Arm] 113/73 125/81 02 Sat by Pulse Oximetry 97 96 Oxygen Delivery Method Room Air Room Air Narrative: General: Alert, oriented, no acute distress, holding baby HEENT: Conjunctive are clear, no scleral icterus, EOMI CV:RRR, no murmurs rubs or gallops Resp: Normal work of breathing, CTAB, no wheezing rhonchi or rales Abd: Soft, nondistended, nontender, bowel sounds x4 quadrants fundus is firm, Extremities: Trace LE edema bilaterally. No cyanosis, clubbing, peripheral pulses intact, no calf tenderness Skin: Intact, no rashes, no lesions, no erythema Neuro: Sensation grossly intact, motor function grossly intact, strength normal,gait normal Psych: Appropriate mood and affect, speech is clear OB - PN: Obj Data Labs CBC & Chem 7: 06/27/22 06:40 Assessment/Plan Assessment (1) Status post vaginal delivery: Status: Acute Plan Ms Ochoa is a 26 year-old female 2 days status post vaginal delivery at 39 weeks 5 days Blues: Patient reports appropriate mood. Breast: No breast complaints. Belly: Abdominal pain is controlled. Bottom: Pain is controlled. Continue ibuprofen and tylenol Bladder: Urinating appropriately Bowels: Is having BMs. Encourage ambulation and hydration. Continue colace. Bleeding: Lochia appropriate. Predelivery Hgb 12.5. [id number]. Postdelivery Hgb 11.2. Asymptomatic. Fawn Harris OMS-III 06/28/22 8:21a Plan day: 2 Vaginal delivery plan (if applicable): routine care, discharge home and follow up 6 weeks Documented By: MARIAH TADEO DO 06/28/22 0817 Signed By: <Electronically signed by MARIAH TADEO DO> 06/28/22 1138 [facility] Work Phone: 1(716) 634-531810-21-2022 Progress note Author TIN Ahmadi [facility] June 27, 2022 10:53am Note Date/Time June 27, 2022 1 0:53am [facility] [address] [place], [place] [id number] [employer] Progress Note Signed Patient: Tiffanie Ochoa MR#: [id number] : 1995 Acct:[id number] Age/Sex: 26 / F Adm Date: 2 Loc: Room: [address] [place] [address] Type: ADM IN Attending Dr: Mariah Tadeo DO Copies to: ~ Date of Service: 06/27/2022 OB - PN: Subj Subjective Post Delivery Day #: Day 1 Interval history: Patient is doing well and denies complaints. She is having cramps. Pain is tolerable. She is ambulating and urinating without difficulty. She has had 2 bowel movements and is passing flatus. She is tolerating food without nausea/vomiting. Patient reports minimal vaginal bleeding. Patient denies lightheadedness, dizziness, SOB, swelling, or calf tenderness OB - PN: Obj Exam Physical Exam Vital signs: Vital Signs - 8 hr 06/27/22 00:00 Temperature 98.0 F Pulse Rate [Left Radial] 88 Respiratory Rate 20 Blood Pressure [Left Arm] 135/76 02 Sat by Pulse Oximetry 95 Oxygen Delivery Method Room Air Narrative: General: Alert, oriented, no acute distress, resting comfortably in bed HEENT: Conjunctive are clear, no scleral icterus, EOMI CV:RRR, no murmurs rubs or gallops Resp: Normal work of breathing, CTAB, no wheezing rhonchi or rales Abd: Soft, nondistended, nontender, bowel sounds x4 quadrants, fundus is firm Extremities: No swelling, cyanosis, clubbing, peripheral pulses intact, no calf tenderness Skin: Intact, no rashes, no lesions, no erythema Neuro: Sensation grossly intact, motor function grossly intact, strength normal,gait normal Psych: Appropriate mood and affect, speech is clear OB - PN: Obj Data Labs CBC & Chem 7: 06/27/22 06:40 Labs: 06/27/22 06:40: Uncorrected WBC Count 17.9 H, MCV 89.4, MCH 29.7, MCHC 33.2, RDW13.6, Plt Count 248, MPV 8.2, Neut % (Auto) 78.7, Lymph % (Auto) 12.0, [place] % (Auto) 8.6, Eos % (Auto) 0.4, Baso % (Auto) 0.3, Neut # (Auto) 14.1 H, Lymph # (Auto) 2.1, [place] # (Auto) 1.5 H, Eos # (Auto) 0.1, Baso # (Auto) 0.1, Nucleated RBC % (auto) 0.0 Assessment/Plan Assessment (1) Status post vaginal delivery: Status: Acute Plan Ms Ochoa is a 26 year-old female 1 day status post vaginal delivery at 39 weeks 5 days Blues: Patient reports appropriate mood. Breast: No breast complaints. Belly: Abdominal pain is controlled. Bottom: Pain is controlled. Continue ibuprofen and tylenol Bladder: Urinating appropriately Bowels: 2 BMs. Encourage ambulation and hydration. Continue colace. Bleeding: Lochia appropriate. Predelivery Hgb 12.5. [id number]. Postdelivery Hgb 11.2. Asymptomatic. Fawn Harris OMS-III 06/27/22 7:38a Plan day: 1 Vaginal delivery plan (if applicable): routine care Documented By: TIN Borges 06/27/22 07 33 Signed By: <Electronically signed by TIN Ahmadi> 06/27/22 1053 [facility] Work Phone: 1(960) 876-109910-20-[address] [facility] note No data available for this section [facility] Evaluation noteNo assessment information available [facility] Work Phone: Evaluation note* Diagnosis Onset Date Resolution Status Status post vaginal delivery acute [facility] Work Phone: Evaluation note* Diagnosis related condition, second trimester- Primary 20 weeks gestation of documented in this encounter [facility] HealthcareEvaluation note* Diagnosis related condition, second trimester- Primary 24 weeks gestation of Screening for diabetes mellitus Other obesity due to excess calories affecting in second trimester documented in this encounter [facility] Discharge instructions No data available for this section [facility] data available for this section [facility] Chief Complaint and Reason for Visit Chief Complaint Z3A.36 Z36.85 IUP (Intrauterine ) Chief Complaint Z3A.36 Z36.85 IUP (Intrauterine ) IUP (Intrauterine ) Reason for Visit Status post vaginal delivery Advance Directives Advance Directive Response Recorded Date/ Time Advance Directives No June 07, 2022 12:34pm Summary Purpose Family History No Family History Records Found Additional Source Comments Care Teams (unrecognized sec tion and content) Team Status: Inactive Member Role Status Dates PHYSICIAN NO FAMILY Primary Care Provider Active Mariah Tadeo DO Attending Provider, Referring Pr ovider Active Team Status: Inactive Member Role Status Dates Mariah Tadeo DO Attending Provider Active Team Status: Active Member Role Status Dates PHYSICIAN NO FAMILY Primary Care Provider Active Team Status: Inactive Member Role Status Dates PHYSICIAN NO FAMILY Primary Care Provider Active Mariah Tadeo DO Admit Provider, Attending Provid er Active Polishing Machine Tender Relationship Specialty Start Date End Date Unallocated, Rayshawn Muñoz MD [address] [place] [address] [place] [address] PCP - General 02/24/23 Polishing Machine Tender Relationship Specialty Start Date End Date Unallocated, Rayshawn Muñoz MD [facility] [place] [address] PCP - General 02/24/23 Polishing Machine Tender Relationship Specialty Start Date End Date Unallocated, Rayshawn Muñoz MD [address] [place], [place] [address] [address] PCP - General 02/24/23 Goals (unrecognized section and content) Goals may be documented in a n alternate section No data available for this section No data available for this section No data available for this section No data available for this section INFORMATION SOURCE (unrecogn ized section and content) DATE CREATED AUTHOR 10/31/2022 [facility] DATE CREATED AUTHOR AUTHOR'S ORGANIZ ATION 03/22/2023 [facility] DATE CREATED AUTHOR AUTHOR'S ERIC MENDEZ 07/08/2024 [facility] FOR RECORDS PERTAINING TO PATIENTS WHO ARE OR HAVE BEEN ENROLLED IN A CHEMICAL DEPENDENCY/SUBSTANCEABUSE PROGRAM, SOME INFORMATION MAY BE OMITTED. This clinical summary was aggregated from multiple sources. Caution should be exercised in using it in the provision of clinical care. This summary normalizes information from multiple sources, and as a consequence, information in this document may materially change the coding, format and clinical context of patient data. In addition, data may be omitted in some cases. CLINICAL DECISIONS SHOULD BE BASED ON THE PRIMARY CLINICAL RECORDS. [facility]. provides no warranty or guarantee of the accuracy or completeness of information in this document.
== END 2024-07-25 10:21 | disposition home or self-care (01) ==
LOC: LAB 17:07
PROVIDERS: Visit Provider Obstetrics & Gynecology
DX: Z13.1 Encounter for screening for diabetes mellitus (principal)
CPT/HCPCS: 36415; 82950; 85014; 85018

== ENCOUNTER 2024-08-05 08:35 | Outpatient (OUT) | payer OTHER, BC, SELFPAY ==
--- OUTSIDE RECORDS SUMMARY | 2024-08-05 08:38 | XMS_ITS | CCD ---
Author Organization [facility] Care Team Providers Care Staff Radiation Therapist Name Role Phone Nataprawira, DO Mariah Attending Provider [phone] NO FAMILY, PHYSICIAN Primary Care Provider Unava ilable Nataprawira, DO Mariah Referring Provider Nataprawira, DO Mariah Admit Provider Nataprawira, Mariah Attending Unavailable Nataprawira, Mariah Admitting Unavailable Nataprawira, Mariah Admitting Unavailable NO FAMILY, PHYSICIAN Primary Care Unavailable Nataprawira, Mariah Attending Unavailable Nataprawira, Mariah Admitting Unavailable NO FAMILY, PHYSICIAN Primary Care Unavailable Nataprawira, Mariah Referring Unavailable Nataprawira, Mariah Attending Unavailable NONE, XXXX Primary Care Physician Unavailab le Lance MCGUIRE, Noms Provider Primary Care Provi nomi MARLY ODELL Attending Unavailable MARLY ODELL Attending Unavailable MARLY ODELL Attending Unavailable MARLY ODELL Attending Unavailable ROSITA, MARIAH Ej Attending Unavailable SHAMEKA CHEN Attending Unavailable SHAMEKA CHEN Admitting Unavailable Rosa Elena Forman Attending Unavailable SHAMEKA CHEN Attending Unavailable Allergies Allergy Classification Reported Allergen(s) Allergy Type Date of Onset Reaction(s) Facility (11 sources) Dextromethorphan; Translations: [dextromethorphan] Drug Allergy 2 [facility] (11 sources) guaiFENesin; Translations: [guaifenesin] Drug Allergy 2 [facility] (11 sources) Phenylephrine; Translations: [phenylephrine] Drug Allergy 2 [facility] (8 sources) Dextromethorphan Drug Allergy 4 Itching NOMS [...] PO Q6H 60 June 28, 2022 12:00am [place] (No Known Home Meds) (1 source) Start: 06-25-2022 [place] (No Known Home Meds) Active June 25, 2022 12:00am ofloxacin 3 mg/ml otic solution (1 source) Quinolone Antimicrobial Start: 03-21-2023 End: 03-28-2023 ofloxacin Otic 0.3% Grisel 10 drop(s), Otic, Daily for 7 day(s), 10 mL, Refill(s) 0, [facility] 1986, 168, cm, 03/21/23 11:37:00 EDT, Height/Length Dosing, 101, kg, 03/21/23 11:37:00 EDT, Weight Dosing Start Date: 03/21/23 Stop Date: 03/28/23 Status: Ordered Vit-Fe Fumarate-FA ( VITAMINS PO) (8 sources) Vit-Fe Fumarate-FA ( VITAMINS PO) Take 1 tablet by mouth Active Problems Active Problems Problem Classification Problem Date Documented Date Episodic/Chronic Other complications of (4 sources) Maternal obesity complicating , childbirth and the puerperium, antepartum; Translations: [Obesity complicating , second trimester] 07-06-2024 Chronic Other complications of (6 sources) Finding related to ; Translations: [ [...] [Status post vaginal delivery] 06-27-2022 Episodic Other inflammatory condition of skin (2 sources) Itching of skin; Translations: [Other pruritus] 08-03-2024 Episodic Other lower respiratory disease (1 source) [...] weeks gestation of ] Onset: 07-24-2024 Episodic Residual codes; unclassified (2 sources) Gestation period, 28 weeks; Translations: [28 weeks gestation of ] 08-03-2024 Episodic Sprains and strains (4 sources) Sprain [...] NEGATED: Highlighted row has been ruled out!Unclassified (8 sources) No known active problems 04-12-2024 Results Test Name Value Interpretation Reference Range Facility No Panel Informationon 08-03 Glucose, UA Negative Negative - 1999(110) ++++ mg/dL [facility] Leukocytes, UA Negative Negative - 500+++ Juan Alberto/mcL [facility] Nitrite, UA Negative Negative - Positive [facility] Protein, UA Negative Negative - 1999(20) ++++ mg/dL [facility] Ambulatory Visit Summaryon 1 09-23-2023 Ambulatory Visit Summary Ambulatory Visi t Summary TIFFANIE OCHOA :1995 Visit Date:07/24/2024 Ambulatory Visit Instructions Your Diagnosis Acute cough 27 weeks gestation of Your Care Team Attending Physician - Dasia MON, [place] Primary Care Physician - NONE, XXXX Procedures Performed denies. Discharge Vitals Temperature (Temporal Artery) 36.4 ???C Heart Rate (Peripheral) 89 Blood Pressure 122/80 Height 168 cm Height 66 in Weight 93.2 kg Weight 205.471 lb BMI 33.02 Allergies No Known Allergies Problems Ongoing - Any problem that you are currently receiving treatment for. BMI 33.0-33.9,adult Right knee sprain Historical - Any problem that you are no longer receiving treatment for. denies Patient Survey You may receive a survey via text or e-mail asking about your office visit. Please share your experience with us by completing your survey. We appreciate your feedback and thank you for choosing us for your care. Education Materials Cough, Adult A cough helps to clear your throat and lungs. It may be a sign of an illness or another condition. A short-term (acute) cough may last 2???3 weeks. A long-term (chronic) cough may last 8 or more weeks. Many things can cause a cough. They include: ??? Illnesses such as: ? An infection in your throat or lungs. ? Asthma or other heart or lung problems. ? Gastroesophageal reflux. This is when acid comes back up from your stomach. ??? Breathing in things that bother (irritate) your lungs. ??? Allergies. ??? Postnasal drip. This is when mucus runs down the back of your throat. ??? Smoking. ??? Some medicines. Follow these instructions at home: Medicines ??? Take jjfu-hrz-thpqaqb and prescription medicines only as told by your doctor. ??? Talk with your doctor before you take cough medicine (cough suppressants). Eating and drinking ??? Do not drink alcohol. ??? Do not drink caffeine. ??? Drink enough fluid to keep your pee (urine) pale yellow. Lifestyle ??? Stay away from cigarette smoke. ??? Do not smoke or use any products that contain nicotine or tobacco. If you need help quitting, ask your doctor. ??? Stay away from things that make you cough. These may include perfume, candles, cleaning products, or campfire smoke. General instructions ??? Watch for any changes to your cough. Tell your doctor about them. ??? Always cover your mouth when you cough. ??? If the air is dry in your home, use a cool mist vaporizer or humidifier. ??? If your cough is worse at night, try using extra pillows to raise your head up higher while you sleep. ??? Rest as needed. Contact a doctor if: ??? You have new symptoms. ??? Your symptoms get worse. ??? You cough up pus. ??? You have a fever that does not go away. ??? Your cough does not get better after 2???3 weeks. ??? Cough medicine does not help, and you are not sleeping well. ??? You have pain that gets worse or is not helped with medicine. ??? You are losing weight and do not know why. ??? You have night sweats. Get help right away if: ??? You cough up blood. ??? You have trouble breathing. ??? Your heart is beating very fast. These symptoms may be an emergency. Get help right away. Call 911. ??? Do not wait to see if the symptoms will go away. ??? Do not drive yourself to the hospital. This information is not intended to replace advice given to you by your health care provider. Make sure you discuss any questions you have with your health care provider. Document Revised: 04/24/2023 Document Reviewed: 04/24/2023 [employer] Patient Education ??? 2023 [employer]. Normal [facility] Family Medicine Office/Clini c Noteon 07-24-2024 Family Medicine Office/Clinic Note Family Medicine Office/Clinic Note Chief Complaint cough HPI Staff complaints of cough Onset: 7 days Characteristics: sob, fatigue OTC tried: none, patient is 27 weeks History of Present Illness I have reviewed and verified the staff HPI to be accurate for this encounter. Portions of this record have been created with voice recognition software. Occasional wrong-word or ???ymrzb-z-ppwk??? substitutions may have occurred due to the inherent limitations of voice recognition software. 28-year-old female who happens to be 27 weeks presents with concern for cough. 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 She denies any fever or chills. She does report some fatigue. She does report some mild shortness of breath but she also is not sure if that is from being and the baby pressing on her lungs. She denies any nasal congestion, sore throat or ear pain. She was not sure what she can take as being for her cough. She does report having the COVID virus about 1 month ago so she did not take any home COVID test today. She has not taken any pwjs-mec-atpruns medication. Review of Systems PHQ Score Initial Depression Screen Score: 0 SCORE ROS negative unless otherwise stated in HPI. Physical Exam Vitals & Measurements T: 36.4 ???C(Temporal Artery) HR: 89(Peripheral) BP: 122/80 SpO2: 96% HT: 66 in HT: 168 cm WT: 93.2 kg WT: 205.471 lb BMI: 33.02 General: Well developed, well nourished, in no acute distress not ill-appearing Eyes: not assessed Ears: No deformity or lesion of external ear. Canals and TM appear normal bilaterally. TM???s intact, not inflamed, with normal light reflex. Hearing grossly normal to conversational speech Nose: No deformity, discharge, inflammation, or lesions Mouth: Mucous membranes moist. Normal oropharynx, and posterior pharynx without lesions or exudates. Tongue normal Neck: no adenopathy Lungs: clear to auscultation throughout, no wheezing, no rales. No respiratory distress SpO2 to 96% on room air Cardio: regular rate and rhythm, no murmur Abdomen: not assessed Musculoskeletal: not assessed Extremity: not assessed Neurologic: Grossly normal Skin: not assessed Mental Status: Alert and oriented x3. Normal mood and affect Assessment/Plan Based on history and exam I feel illness is likely viral in nature. Her young son that is with her today also has a barky type cough. She reports having COVID about 30 days ago so it is not necessary to check her for COVID today. Her symptoms are mild. She is afebrile and does not have any adventitious lung sounds. She is correcting her assumptions that her fatigue and mild shortness of breath could be related. Instructed her to monitor for any worsening of symptoms including fever, chest pain, wheezing or worsening shortness of breath as we have seen quite a bit of pneumonia recently. Reviewed with patient safe medications to use during including Robitussin plain without the DM. Patient plans to follow-up with her tier lift operator as planned. Patient verbalized understanding and agreement with this plan. 1. Acute cough (R05.1: Acute cough) As above in #1 May use Robitussin OTC without the dextromethorphan for her symptoms. He may also use cough drops. 2. 27 weeks gestation of (Z3A.27: 27 weeks gestation of ) Stable and following with tier lift operator as planned. Follow-up No qualifying data available Patient Education Cough, Adult, Qppq-rc-Fjmg Problem List/Past Medical History Ongoing BMI 33.0-33.9,adult Right knee sprain Historical denies Procedure/Surgical History denies. Medications No active medications Allergies No Known Allergies Social History Tobacco Never (less than 100 in lifetime) Tobacco Use:. Never Smokeless Tobacco Use:., 12/04/2023 Family History Family history is negative Immunizations Vaccine Date Status Comments influenza virus vaccine, inactivated - Not Given Postpone due to refusal SARS-CoV-2 mRNA (facundo 5y-11y) vac - Not Given Postpone due to refusal SARS-CoV-2 mRNA (tozinameran 5y-11y) vac - Not Given Patient Refuses influenza virus vaccine, live, trivalent - Not Given Postpone due to refusal we don't offer at this clinic [facility] Comment on above: Result Comment: Elec tronically Signed By: Dasia MON, [place]\.br\Date and Time Signed: 07/24/24 10:40 EST No Panel Informationon 07-06 Glucose, UA Negative Negative - 1999(110) ++++ mg/dL [facility] Interpretation and review of laboratory results Normal [facility] Protein, UA Negative Negative - 1999(20) ++++ mg/dL [facility] No Panel Informationon 06-08 Glucose, UA Negative Negative - 1999(110) ++++ mg/dL [facility] Interpretation and review of laboratory results Normal [facility] Protein, UA Negative Negative - 1999(20) ++++ mg/dL [facility] Ambulatory Visit Summaryon 0 12-04-2023 Ambulatory Visit Summary TIFFANIE OCHOA :1995 Visit Date:12/04/2023 Ambulatory Visit Instructions Your Diagnosis Knee pain Your Care Team Attending Physician - SHAMEKA CHEN PA-C Primary Care Physician - NONE, XXXX Procedures Performed denies. Discharge Vitals Temperature (Oral) 36.8 ?C Heart Rate (Peripheral) 75 Blood Pressure 110/70 Height 168 cm Height 66 in Weight 95.4 kg Weight 209.88 lb BMI 33.8 Medications and Immunizations Administered Not Given influenza virus vaccine, inactivated, Postpone due to refusal SARS-CoV-2 mRNA (tozinameran 5y-11y) vac, Postpone due to refusal Allergies No Known Allergies Problems Historical - Any problem that you are no longer receiving treatment for. denies Patient Survey You may receive a survey via text or e-mail asking about your office visit. Please share your experience with us by completing your survey. We appreciate your feedback and thank you for choosing us for your care. [facility] Family Medicine Office/Clini c Noteon 12-04-2023 Family Medicine Office/Clinic Note Chief Complaint knee pain HPI Staff 28 year old female here for right knee pain. Pt states 2 days ago she felt it pop after turning wrong, has pain mostly posteriorly but feels tightness all around the knee. Pt unable to fully straighten right leg. History of Present Illness Reviewed and agree with above documented HPI by medical billing and coding specialist. Portions of this record may have been created with voice recognition artificial intelligence software, specifically [employer] and or [employer]. Substitutions may have occurred due to the inherent limitations of voice recognition and artificial intelligence software. 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 Patient states she did not attend physical therapy. Patient states been waking up every morning with tightness behind her knee, does not radiate to the front or any or her patella, or into her hip or into her ankle. Patient states her knee feels stiff, no worsening pain getting in and out of car, going from sitting to standing, as well as going up and down steps because of worsening pain. Patient she has not noticed any swelling compared to left knee. Patient denies any fevers, chills, nausea or vomiting, falls, chest pain, shortness of breath, right lower leg weakness, skin redness, or any other musculoskeletal tenderness. Review of Systems PHQ Score Initial Depression Screen Score: 0 SCORE Physical Exam Vitals & Measurements T: 36.8 ?C(Oral) HR: 75(Peripheral) BP: 110/70 SpO2: 98% HT: 66 in HT: 168 cm WT: 95.4 kg WT: 209.88 lb BMI: 33.8 General: Well developed, well nourished, in no acute distress. Patient does not appear ill or septic. No respiratory distress. Answers questions appropriately and in complete sentences, and follows commands appropriately. Head: Normocephalic/atrau matic. No upper respiratory infection. No facial Lungs: Normal respiratory effort and clear to auscultation throughout, no wheezing, no rales Cardio: regular rate and rhythm, no murmur. No chest wall tenderness. Extremity: Right posterior knee pain. There is no significant swelling of the right knee compared to the left, there is no right anterior patella knee pain. No pain radiates to the anterior aspects as well. Patient does have full range of motion, worsening pain with full flexion, but not with full extension. No laxity, hepatitis, joint effusion, joint stability, bursitis, septic joint, cellulitis, deformity, dislocation, or fractures. The remaining musculoskeletal exam is within normal limits. Patient is neurovascular intact. Neurologic: Grossly normal Skin: No rashes, ulcerations, or suspicious lesions Lymph Nodes: no lad Mental Status: alert, active Assessment/Plan Right knee imaging for any possible acute findings. Patient declines any pain medication at this time. Reassessed patient after returning from imaging, states she has no worsening pain. Discussed with patient imaging findings read by the radiologist: Negative right knee. There is no fracture, sizable joint effusion, significant degenerative changes, dislocation, worsening bone destruction, radiodense foreign bodies, or other posttraumatic complication identified elsewhere . 28-year-old female presents to convenient care, for right knee sprain, irritated twisting motion, occurred at home 2 days ago, after picking up her son off the floor, no significant swelling of the right knee compared to the left, crepitus, joint effusion, joint stability, cellulitis, bursitis, septic joint, dislocation, deformity, fractures. Patient was able to ambulate and bear weight. Given instructions on ice therapy, prefers to take gdfz-kgm-kohdymo pain medication as needed, prefers no orthopedic consultation at this time, and states she will follow-up with her primary care provider. 1. Right knee sprain (S83.91XA: Sprain of unspecified site of right knee, initial encounter) See above 2. BMI 33.0-33.9,adult (Z68.33: Body mass index [BMI] 33.0-33.9, adult) The standard range for ages 18 and older is >=18.5 and < 25 kg/m2. Your BMI today was above this range, this falls in the overweight to obese category and there are medical benefits to weight loss. We can offer counselling, referral, and/or medical support in addressing this problem. Your BMI and weight management will be followed at subsequent visits. Orders: XR Knee Complete 4+ Views Right Follow-up With When Contact Information NONE, XXXX [phone] Additional Instructions: Patient Education BMI for Adults Knee Sprain, Adult, Ybnw-gn-Uusg Problem List/Past Medical History On (more content not included)... Normal [facility] Comment on above: Result Comment: Elec tronically Signed By: GUSTAVO MADRIGAL, SHAMEKA\.br\Date and Time Signed: 12/04/23 14:09 EDT Patient Educationon 12-04-19 Patient Education Nutrition BMI for Adults What is BMI? Body [...] numbers. This can be done either in [place] ([place] or metric measurements. Note that charts and online BMI calculators are available to help you find your BMI quickly and easily without having to do these calculations yourself. To calculate your BMI in [place] ([place] measurements: 1. Measure your weight in [...] for Disease Control and Prevention: www.cdc.gov ? [place] Heart Association: www.heart.org ? National Heart, Lung, and Blood [place]: www.nhlbi.nih.gov Summary ? Body mass index (BMI) is a number that is calculated from a person's weight and height. ? BMI may help estimate how much of a person's weight is composed of fat. BMI can help identify those who may be at higher risk for certain medical problems. ? BMI can be measured using Grenadian measurements or metric measurements. ? BMI charts are used to identify whether you are underweight, normal weight, overweight, or obese. This information is not intended to replace advice given to you by your health care provider. Make sure you discuss any questions you have with your health care provider. Document Revised: 05/16/2020 Document Reviewed: 03/23/2020 [employer] Patient Education ? 2022 [employer]. Orthopedics Knee Sprain A knee sprain is a stretch or tear in a knee ligament. Knee ligaments are tissues that connect bones in the knee to each other. What are the causes? This condition often results from: ? A fall. ? An injury to the knee. What are the signs or symptoms? Symptoms of this condition include: ? Trouble straightening or bending the leg. ? Swelling in the knee. ? Bruising around the knee. ? Tenderness or pain in the knee. ? Sudden muscle tightening (spasms) around the knee. How is this treated? Treatment for this condition may involve: ? Keeping the knee still (immobilized) with a cast, brace, or splint. (more content not included)... Normal [facility] XR Knee Complete 4+ Views [facility] 12-04-2023 XR Knee Complete 4+ Views Right Exam Date/Time: 12/04/2023 10:56 EDT Reason for Exam: Leg pain Report IMPRESSION: NEGATIVE RIGHT KNEE. EXAM: XR Knee Complete 4+ Views Right DATE: 12/04/2023 10:54 AM CLINICAL HISTORY: Leg pain. COMPARISON: None available. TECHNIQUE: AP, lateral, internal and external oblique radiographs of the right knee were obtained. FINDINGS: There is no fracture, sizable joint effusion, significant degenerative changes, dislocation, worrisome bone destruction, radiodense foreign bodies, or other posttraumatic complication identified elsewhere. Ordering Provider: SHAMEKA CHEN FINAL REPORT Dictated: 12/04/2023 11:03 am Fernando Schmid MD Signed (Electronic Signature): 12/04/2023 11:03 am Signed by: Fernando Schmid MD Transcribed by: JOHNY Technologist: BOB Technical Comments Radiation Dose: Ka,r in mGy = . DAP = . Normal [facility] Basophils Auto (Bld) [#/Vol] Ordered By: MARIAH TADEO on 06-27-2022 Basophils (Bld) [#/Vol] 0.1 10*3/uL 0.0-0.2 [facility] Basophils/100 WBC Auto (Bld) Ordered By: MARIAH TADEO on 06-27-2022 Basophils/100 WBC (Bld) 0.3 % . F [facility] Complete Blood Count Auto Di ffon 06-27-2022 Basophils (Bld) [#/Vol] 0.1 10*3/uL Normal 0.0-0.2 [facility] Comment on above: Order Comment: Comme nt Draw at 630 am Result Comment: PERF ORMED BY: [place] [address] PATHOLOGIST IMPLEMENTATION ANALYST ROWDY KEY M.D. Performed By: #### C BC #### [address] Basophils/100 WBC (Bld) 0.3 % Normal . F [facility] Comment on above: Order Comment: Comme nt Draw at 630 am Performed By: #### C BC #### [facility] [address] [place] [address] Eosinophils (Bld) [#/Vol] 0.1 10*3/uL Normal 0.0-0.45 [facility] Comment on above: Order Comment: Comme nt Draw at 630 am Performed By: #### C BC #### [address] Eosinophils/100 WBC (Bld) 0.4 % Normal . [facility] Comment on above: Order Comment: Comme nt Draw at 630 am Performed By: #### C BC #### [address] Erythrocyte distribution width (RBC) [Ratio] 13.6 % Normal 11.9-15.3 [facility] Comment on above: Order Comment: Comme nt Draw at 630 am Performed By: #### C BC #### [address] Hematocrit (Bld) [Volume fraction] 33.7 % Low 34.0-46.4 [facility] Comment on above: Order Comment: Comme nt Draw at 630 am Performed By: #### C BC #### [address] Hemoglobin (Bld) [Mass/Vol] 11.2 g/dL Low 11.8-15.4 [facility] Comment on above: Order Comment: Comme nt Draw at 630 am Performed By: #### C BC #### [address] Lymphocytes (Bld) [#/Vol] 2.1 10*3/uL Normal 1.00-4.8 [facility] Comment on above: Order Comment: Comme nt Draw at 630 am Performed By: #### C BC #### [address] Lymphocytes/100 WBC (Bld) 12.0 % Normal . [facility] Comment on above: Order Comment: Comme nt Draw at 630 am Performed By: #### C BC #### [address] MCH (RBC) [Entitic mass] 29.7 pg Normal 24.7-34.3 [facility] Comment on above: Order Comment: Comme nt Draw at 630 am Performed By: #### C BC #### [address] MCV (RBC) [Entitic vol] 89.4 fL Normal 80-100 F [facility] Comment on above: Order Comment: Comme nt Draw at 630 am Performed By: #### C BC #### [address] [address] Mean Corpuscular HGB Conc 33.2 g/dL Normal 32.0-35.0 [facility] Comment on above: Order Comment: Comme nt Draw at 630 am Performed By: #### C BC #### [address] Monocytes (Bld) [#/Vol] 1.5 10*3/uL High 0.0-0.8 [facility] Comment on above: Order Comment: Comme nt Draw at 630 am Performed By: #### C BC #### [facility] [address] Monocytes/100 WBC (Bld) 8.6 % Normal . [facility] Comment on above: Order Comment: Comme nt Draw at 630 am Performed By: #### C BC #### [address] Neutrophils (Bld) [#/Vol] 14.1 10*3/uL High 1.8-7.7 [facility] Comment on above: Order Comment: Comme nt Draw at 630 am Performed By: #### C BC #### [address] Neutrophils/100 WBC (Bld) 78.7 % Normal . [facility] Comment on above: Order Comment: Comme nt Draw at 630 am Performed By: #### C BC #### [address] Nucleated RBC/100 WBC (Bld) [Ratio] 0.0 % Normal 0-0.5 [facility] Comment on above: Order Comment: Comme nt Draw at 630 am Performed By: #### C BC #### [address] Platelet mean volume (Bld) [Entitic vol] 8.2 fL Normal 6.3-10.7 [facility] Comment on above: Order Comment: Comme nt Draw at 630 am Performed By: #### C BC #### [place] [address] [place] Platelets (Bld) [#/Vol] 248 10*3/uL Normal 150-450 [facility] Comment on above: Order Comment: Comme nt Draw at 630 am Performed By: #### C BC #### [place] [address] [place] RBC (Bld) [#/Vol] 3.76 10*6/uL Normal 3.60-5.00 [facility] Comment on above: Order Comment: Comme nt Draw at 630 am Performed By: #### C BC #### [facility] [address] [place] [address] [place] WBC (Bld) [#/Vol] 17.9 10*3/uL High 4.5-11.0 [facility] Comment on above: Order Comment: Comme nt Draw at 630 am Performed By: #### C BC #### [facility] [address] Eosinophils Auto (Bld) [#/Vo l]Ordered By: MARIAH TADEO on 06-27-2022 Eosinophils (Bld) [#/Vol] 0.1 10*3/uL 0.0-0.45 [facility] Eosinophils/100 WBC Auto (Bl d)Ordered By: MARIAH TADEO on 06-27-2022 Eosinophils/100 WBC (Bld) 0.4 % . [facility] Erythrocyte distribution wid th Auto (RBC) [Ratio]Ordered By: MARIAH TADEO on 06-27-2022 Erythrocyte distribution width (RBC) [Ratio] 13.6 % 11.9-15.3 [facility] Hematocrit Auto (Bld) [Volum e fraction]Ordered By: MARIAH TADEO on 06-27-2022 Hematocrit (Bld) [Volume fraction] 33.7 % 34.0-46.4 [facility] Hemoglobin [Mass/volume] in BloodOrdered By: MARIAH TADEO on 06-27-2022 Hemoglobin (Bld) [Mass/Vol] 11.2 g/dL 11.8-15.4 [facility] Laboratory - Hematology and Cell countsOrdered By: MARIAH TADEO on 06-27-2022 Nucleated RBC/100 WBC (Bld) [Ratio] 0.0 % 0-0.5 [facility] Leukocytes [#/volume] in Blo od by Automated countOrdered By: MARIAH TADEO on 06-27-2022 WBC (Bld) [#/Vol] 17.9 10*3/uL 4.5-11.0 [facility] Lymphocytes Auto (Bld) [#/Vo l]Ordered By: MARIAH TADEO on 06-27-2022 Lymphocytes (Bld) [#/Vol] 2.1 10*3/uL 1.00-4.8 [facility] Lymphocytes/100 WBC Auto (Bl d)Ordered By: MARIAH TADEO on 06-27-2022 Lymphocytes/100 WBC (Bld) 12.0 % . [facility] MCH Auto (RBC) [Entitic mass ]Ordered By: MARIAH TADEO on 06-27-2022 MCH (RBC) [Entitic mass] 29.7 pg 24.7-34.3 [facility] MCHC Auto (RBC) [Mass/Vol]Or dered By: MARIAH TADEO on 06-27-2022 MCHC (RBC) [Mass/Vol] 33.2 g/dL 32.0-35.0 [facility] MCV Auto (RBC) [Entitic vol] Ordered By: MARIAH TADEO on 06-27-2022 MCV (RBC) [Entitic vol] 89.4 fL 80-100 F [facility] Monocytes Auto (Bld) [#/Vol] Ordered By: MARIAH TADEO on 06-27-2022 Monocytes (Bld) [#/Vol] 1.5 10*3/uL 0.0-0.8 [facility] Monocytes/100 WBC Auto (Bld) Ordered By: MARIAH TADEO on 06-27-2022 Monocytes/100 WBC (Bld) 8.6 % . F [facility] Neutrophils Auto (Bld) [#/Vo l]Ordered By: MARIAH TADEO on 06-27-2022 Neutrophils (Bld) [#/Vol] 14.1 10*3/uL 1.8-7.7 [facility] Neutrophils/100 WBC Auto (Bl d)Ordered By: MARIAH TADEO on 06-27-2022 Neutrophils/100 WBC (Bld) 78.7 % . [facility] Platelet mean volume Auto (B ld) [Entitic vol]Ordered By: MARIAH TADEO on 06-27-2022 Platelet mean volume (Bld) [Entitic vol] 8.2 fL 6.3-10.7 [facility] Platelets Auto (Bld) [#/Vol] Ordered By: MARIAH TADEO on 06-27-2022 Platelets (Bld) [#/Vol] 248 10*3/uL 150-450 [facility] RBC Auto (Bld) [#/Vol]Ordere d By: MARIAH TADEO on 06-27-2022 RBC (Bld) [#/Vol] 3.76 10*6/uL 3.60-5.00 [facility] ABO/RH Typeon 06-26-2022 ABO and Rh group Nom (Bld) Blood group O Rh(D) positive Normal [facility] Comment on above: Result Comment: PERF ORMED BY: [place] [address] PATHOLOGIST IMPLEMENTATION ANALYST ROWDY KEY M.D. Complete Blood Count Auto Di ffon 06-26-2022 Basophils (Bld) [#/Vol] 0.1 10*3/uL Normal 0.0-0.2 [facility] Comment on above: Result Comment: PERF ORMED BY: [facility] [address] [place] [address] PATHOLOGIST IMPLEMENTATION ANALYST ROWDY KEY M.D. Performed By: #### R VT W RFX #### [facility] , #### CBC #### [facility] [address] [place] [address] [place] Basophils/100 WBC (Bld) 0.5 % Normal . [facility] Comment on above: Performed By: #### R VT W RFX #### [facility] , #### CBC #### [facility] [address] [place] [address] [place] Eosinophils (Bld) [#/Vol] 0.1 10*3/uL Normal 0.0-0.45 [facility] Comment on above: Performed By: #### R VT W RFX #### [facility] , #### CBC #### [facility] [address] [place] [address] [place] Eosinophils/100 WBC (Bld) 0.7 % Normal . [facility] Comment on above: Performed By: #### R VT W RFX #### [facility] , #### CBC #### [facility] [address] [place] [address] Erythrocyte distribution width (RBC) [Ratio] 13.6 % Normal 11.9-15.3 [facility] Comment on above: Performed By: #### R VT W RFX #### [facility] , #### CBC #### [address] Hematocrit (Bld) [Volume fraction] 37.2 % Normal 34.0-46.4 [facility] Comment on above: Performed By: #### R VT W RFX #### [facility] , #### CBC #### [address] Hemoglobin (Bld) [Mass/Vol] 12.5 g/dL Normal 11.8-15.4 [facility] Comment on above: Performed By: #### R VT W RFX #### [facility] , #### CBC #### [facility] [address] [place] [address] Lymphocytes (Bld) [#/Vol] 1.8 10*3/uL Normal 1.00-4.8 [facility] Comment on above: Performed By: #### R VT W RFX #### [facility] , #### CBC #### [facility] [address] [place] [address] [place] Lymphocytes/100 WBC (Bld) 14.8 % Normal . [facility] Comment on above: Performed By: #### R VT W RFX #### [facility] , #### CBC #### [facility] [address] [place] [address] MCH (RBC) [Entitic mass] 29.9 pg Normal 24.7-34.3 [facility] Comment on above: Performed By: #### R VT W RFX #### [facility] , #### CBC #### [facility] [address] [place] [address] MCV (RBC) [Entitic vol] 89.0 fL Normal 80-100 F [facility] Comment on above: Performed By: #### R VT W RFX #### [facility] , #### CBC #### [address] Mean Corpuscular HGB Conc 33.6 g/dL Normal 32.0-35.0 [facility] Comment on above: Performed By: #### R VT W RFX #### [facility] , #### CBC #### [address] Monocytes (Bld) [#/Vol] 0.9 10*3/uL High 0.0-0.8 [facility] Comment on above: Performed By: #### R VT W RFX #### [facility] , #### CBC #### [facility] [address] [place] [address] Monocytes/100 WBC (Bld) 7.8 % Normal . [facility] Comment on above: Performed By: #### R VT W RFX #### [facility] , #### CBC #### [facility] [address] [place] [address] Neutrophils (Bld) [#/Vol] 9.2 10*3/uL High 1.8-7.7 [facility] Comment on above: Performed By: #### R VT W RFX #### [facility] , #### CBC #### [facility] [address] [place] [address] Neutrophils/100 WBC (Bld) 76.2 % Normal . [facility] Comment on above: Performed By: #### R VT W RFX #### [facility] , #### CBC #### [address] Nucleated RBC/100 WBC (Bld) [Ratio] 0.0 % Normal 0-0.5 [facility] Comment on above: Performed By: #### R VT W RFX #### [facility] , #### CBC #### [address] Platelet mean volume (Bld) [Entitic vol] 7.9 fL Normal 6.3-10.7 [facility] Comment on above: Performed By: #### R VT W RFX #### [facility] , #### CBC #### [address] Platelets (Bld) [#/Vol] 327 10*3/uL Normal 150-450 [facility] Comment on above: Performed By: #### R VT W RFX #### [facility] , #### CBC #### [address] RBC (Bld) [#/Vol] 4.18 10*6/uL Normal 3.60-5.00 [facility] Comment on above: Performed By: #### R VT W RFX #### [facility] , #### CBC #### [address] WBC (Bld) [#/Vol] 12.0 10*3/uL High 4.5-11.0 [facility] Comment on above: Performed By: #### R VT W RFX #### [facility] , #### CBC #### [address] RPR w/rfx to Quant TP Abson 06-26-2022 RPR, Rfx Quant RPR Non-Reactive Normal Non Reactive [facility] Comment on above: Result Comment: Perf ormed at: CB - [facility] [address], [place], [place] [id number] Distribution Sales Manager: Herman Weston PhD, Phone: [phone] PERFORMED BY: [place] [address] PATHOLOGIST IMPLEMENTATION ANALYST ROWDY KEY M.D. Performed By: #### R VT W RFX #### [facility] , #### CBC #### [facility] [address] [place] [address] Amphetamine Screen Ql (U)Ord ered By: MARIAH TADEO on 06-25-2022 Amphetamines Ql (U) Negative Negative [facility] Automated erythrocytes count in urine sediment (number/area)Ordered By: MARIAH TADEO on 06-25-2022 RBC Auto (Urine sed) [#/Area] 0-1 [HPF] 0-4 [facility] Automated leukocytes count i n urine sediment (number/area)Ordered By: MARIAH TADEO on 06-25-2022 WBC Auto (Urine sed) [#/Area] 3-4 [HPF] 0-4 [facility] Barbiturates [Presence] in U rineOrdered By: MARIAH TADEO on 06-25-2022 Barbiturates Ql (U) Negative Negative [facility] Benzodiazepines [Presence] i n UrineOrdered By: MARIAH TADEO on 06-25-2022 Benzodiazepines Ql (U) Negative Negative [facility] Bilirubin Test strip Ql (U)O rdered By: MARIAH TADEO on 06-25-2022 Bilirubin Ql (U) Negative Negative [facility] COVID-19 Antigenon 2 COVID-19 Antigen Healthcare [...] developed and its performance characteristic determined by [employer] and validated at [facility]. This test has not been FDA [...] the authorization is terminated or revoked sooner. SARS-CoV+SARS-CoV-2 (COVID-19) Ag [Presence] in Respiratory specimen by Rapid immunoassay Negative for SARS Antigen by [employer] PERFORMED BY: [place] [address] PATHOLOGIST IMPLEMENTATION ANALYST ROWDY KEY M.D. Normal [facility] Comment on above: Performed By: #### C OVID-19 SAMMI, SOFIANEG #### [address] COVID-19 SOFIAOrdered By: SHELLY TADEO on 06-25-2022 SARS-CoV+SARS-CoV-2 (COVID-19) Ag IA.rapid Ql (Resp) Negative Negative [facility] Comment on above: This is a duplicate Sammi SARS Antigen (ANGELIC) result to be used for statistical tracking purpose only. Color Auto (U)Ordered By: SHELLY SCHOFIELDAPRTHUY on 06-25-2022 Color (U) Yellow Yellow [facility] Dipstick and Microscopicon 1 Appearance (U) Clear Normal Clear [facility] Comment on above: Order Comment: Name Collection Type:: Voided Performed By: #### A DDONUAPLUS OBUDS #### [address] Bacteria,Urine None Seen Normal None Seen [facility] Comment on above: Order Comment: Name Collection Type:: Voided Performed By: #### A DDONUAPLUS OBUDS #### [place] [address] [place] Bilirubin,Urine Negative Normal Negative [facility] Comment on above: Order Comment: Name Collection Type:: Voided Performed By: #### A DDONUALURDES OBUDS #### [address] Color (U) Yellow Normal Yellow [facility] Comment on above: Order Comment: Name Collection Type:: Voided Performed By: #### A DDONUAPLUS OBUDS #### [address] Glucose Ql (U) Normal Normal Normal [facility] Comment on above: Order Comment: Name Collection Type:: Voided Performed By: #### A DDONUAPLUS OBUDS #### [address] Hyaline Casts,Urine 0-8 Normal 0-8 [facility] Comment on above: Order Comment: Name Collection Type:: Voided Result Comment: PERF ORMED BY: [place] [address] PATHOLOGIST IMPLEMENTATION ANALYST ROWDY KEY M.D. Performed By: #### A DDONUAPLUS OBUDS #### [facility] [address] [place] [address] [place] Ketones Ql (U) 1+ High Negative [facility] Comment on above: Order Comment: Name Collection Type:: Voided Performed By: #### A DDONUAPLUS OBUDS #### [place] [address] [place] Leukocyte esterase Test strip Ql (U) 1+ High Negative [facility] Comment on above: Order Comment: Name Collection Type:: Voided Performed By: #### A RADHA OBUDS #### [address] Nitrite,Urine Negative Normal Negative [facility] Comment on above: Order Comment: Name Collection Type:: Voided Performed By: #### A RADHA OBUDS #### [address] Occult Blood,Urine Negative Normal Negative [facility] Comment on above: Order Comment: Name Collection Type:: Voided Result Comment: PERF ORMED BY: [place] [address] PATHOLOGIST IMPLEMENTATION ANALYST ROWDY KEY M.D. Performed By: #### A RADHA OBUDS #### [address] pH (U) 6.5 [pH] Normal 5.0-9.0 [facility] Comment on above: Order Comment: Name Collection Type:: Voided Performed By: #### A RADHA OBUDS #### [address] Protein,Urine Negative Normal Negative [facility] Comment on above: Order Comment: Name Collection Type:: Voided Performed By: #### A RADHA OBUDS #### [place] [address] [place] RBC LM.HPF (Urine sed) [#/Area] 0 /[HPF] Normal 0-4 [facility] Comment on above: Order Comment: Name Collection Type:: Voided Performed By: #### A RADHA OBUDS #### [address] Specificy [place],Urine 1.012 Normal 1.001-1.030 [facility] Comment on above: Order Comment: Name Collection Type:: Voided Performed By: #### A DDONUAPLUS, OBUDS #### [facility] [address] Squamous Epithelial Cell,Urine 0-1 Normal 0-2 [facility] Comment on above: Order Comment: Name Collection Type:: Voided Performed By: #### A DDONUAPLUS, OBUDS #### [facility] [address] Urobilinogen,Urine Normal Normal Normal [facility] Comment on above: Order Comment: Name Collection Type:: Voided Performed By: #### A DDONUAPLUS, OBUDS #### [facility] [address] WBC,Urine 3-4 Normal 0-4 [facility] Comment on above: Order Comment: Name Collection Type:: Voided Performed By: #### A DDONUAPLUS, OBUDS #### [facility] [address] [place] [address] Ketones Auto test strip (U) [Mass/Vol]Ordered By: MARIAH TADEO on 06-25-2022 Ketones (U) [Mass/Vol] 1+ Negative [facility] - Drug toxicology Ordered By: MARIAH TADEO on 06-25-2022 Opiates Ql (U) Negative Negative [facility] - UrinalysisOrder ed By: MARIAH TADEO on 06-25-2022 Hyaline casts LM Ql (Urine sed) 0-8 [LPF] 0-8 [facility] Nitrite Test strip Ql (U)Ord ered By: MARIAH TDAEO on 06-25-2022 Nitrite Ql (U) Negative Negative [facility] No Panel InformationOrdered By: MARIAH TADEO on 06-25-2022 SARS Antigen (LFIA) [facility] OB Urine Drug Screen (NO THC )on 06-25-2022 Amphetamine Screen,Urine Negative Normal Negative [facility] Comment on above: Performed By: #### A DDONUAPLUS, OBUDS #### [facility] [address] Barbiturate Screen,Urine Negative Normal Negative [facility] Comment on above: Performed By: #### A DDONUAPLUS, OBUDS #### [facility] [address] [place] [address] [place] Benzodiazepines Screen,Urine Negative Normal Negative [facility] Comment on above: Performed By: #### A DDONUAPLUS, OBUDS #### [facility] [address] [place] [address] [place] Cocaine Screen,Urine Negative Normal Negative [facility] Comment on above: Performed By: #### A DDONUAPLUS, OBUDS #### [facility] [address] [place] [address] [place] Opiate Screen,Urine Negative Normal Negative [facility] Comment on above: Performed By: #### A DDONUAPLUS, OBUDS #### [address] Phencyclidine Screen, Urine Negative Normal Negative [facility] Comment on above: Result Comment: Thes e are unconfirmed results and should not be used for legal purposes. Drug Cut-Off Concentration: AMPH 1000 ng/mL DONALD 200 ng/mL CHIDI 200 ng/mL COCM 300 ng/mL OP 300 ng/mL PCP 25 ng/mL PERFORMED BY: [place] [address] PATHOLOGIST IMPLEMENTATION ANALYST ROWDY KEY M.D. Performed By: #### A DDONUAPLUS, OBUDS #### [facility] [address] [place] [address] Phencyclidine Screen Ql (U)O rdered By: MARIAH TADEO on 06-25-2022 Phencyclidine Ql (U) Negative Negative [facility] Comment on above: These are unconfirme d results and should not be used for legal purposes. Drug Cut-Off Concentration: AMPH 1000 ng/mL DONALD 200 ng/mL CHIDI 200 ng/mL COCM 300 ng/mL OP 300 ng/mL PCP 25 ng/mL Protein Auto test strip (U) [Mass/Vol]Ordered By: MARIAH TADEO on 06-25-2022 Protein (U) [Mass/Vol] Negative Negative [facility] Reagin Ab [Presence] in Seru m by RPROrdered By: MARIAH TADEO on 06-25-2022 Reagin Ab RPR Ql (S) Non-Reactive Non Reactive [facility] Comment on above: Performed at: - L [address] [id number] Director: Herman Weston PhD, Phone: [phone] Sammi Ag Negativeon 06-25-20 Sammi Ag Negative Negative Normal Negative [facility] Comment on above: Result Comment: This is a duplicate Sammi SARS Antigen (ANGELIC) result to be used for statistical tracking purpose only. PERFORMED BY: [place] [address] PATHOLOGIST IMPLEMENTATION ANALYST ROWDY KEY M.D. Performed By: #### C SAMMI, SOFIANEG #### [address] Specific gravity Auto test s trip (U) [Rel density]Ordered By: MARIAH TADEO on 06-25-2022 Specific gravity (U) [Rel density] 1.012 1.001-1.030 [facility] Squamous epithelial cells de tection in urine sediment by light microscopyOrdered By: MARIAH TADEO on 06-25-2022 Epithelial cells.squamous LM Ql (Urine sed) 0-1 [HPF] 0-2 [facility] Urine bacteria detection by automated methodOrdered By: MARIAH TADEO on 06-25-2022 Bacteria Auto Ql (U) None seen None Seen [facility] Urine clarity by refractomet ry automatedOrdered By: MARIAH TADEO on 06-25-2022 Clarity Refractometry automated (U) Clear Clear [facility] Urine cocaine detectionOrder ed By: MARIAH TADEO on 06-25-2022 Cocaine Ql (U) Negative Negative [facility] Urine glucose measurement by automated test strip (mass/volume)Ordered By: MARIAH TADEO on 06-25-2022 Glucose Auto test strip (U) [Mass/Vol] Normal mg/dL Normal [facility] Urine hemoglobin detection b y automated test stripOrdered By: MARIAH TADEO on 06-25-2022 Hemoglobin Auto test strip Ql (U) Negative Negative [facility] Urine leukocyte esterase det ection by automated test stripOrdered By: MARIAH TADEO on 06-25-2022 Leukocyte esterase Auto test strip Ql (U) 1+ Negative [facility] Urobilinogen Auto test strip (U) [Mass/Vol]Ordered By: MARIAH TADEO on 06-25-2022 Urobilinogen (U) [Mass/Vol] Normal mg/dL Normal [facility] pH Auto test strip (U)Ordere d By: MARIAH TADEO on 06-25-2022 pH (U) 6.5 [pH] 5.0-9.0 [facility] Amphetamine Screen Ql (U)Ord ered By: MARIAH TADEO on 06-12-2022 Amphetamines Ql (U) Negative Negative [facility] Automated erythrocytes count in urine sediment (number/area)Ordered By: MARIAH TADEO on 06-12-2022 RBC Auto (Urine sed) [#/Area] None seen [HPF] 0-4 [facility] Automated leukocytes count i n urine sediment (number/area)Ordered By: MARIAH TADEO on 06-12-2022 WBC Auto (Urine sed) [#/Area] 1-2 [HPF] 0-4 [facility] Automated urine color determ inationOrdered By: MARIAH TADEO on 06-12-2022 Color (U) Yellow Normal Yellow [facility] Comment on above: Order Comment: Name Collection Type:: Clean-Voided Midstream Performed By: #### O BUDS, ADDONUAPLUS #### [facility] [address] [place] [address] Barbiturates [Presence] in U rineOrdered By: MARIAH TADEO on 06-12-2022 Barbiturates Ql (U) Negative Negative [facility] Benzodiazepines [Presence] i n UrineOrdered By: MARIAH TADEO on 06-12-2022 Benzodiazepines Ql (U) Negative [facility] Test strip Ql (U)O rdered By: MARIAH TADEO on 06-12-2022 Bilirubin Ql (U) Negative Negative [facility] Dipstick and Microscopicon 1 Appearance (U) Cloudy Critically abnormal Clear [facility] Comment on above: Order Comment: Name Collection Type:: Clean-Voided Midstream Performed By: #### O BUDS, ADDONUAPLUS #### [facility] [address] [place] [address] Bacteria,Urine None Seen Normal None Seen [facility] Comment on above: Order Comment: Name Collection Type:: Clean-Voided Midstream Performed By: #### O BUDS, ADDONUAPLUS #### [place] [address] [place] Bilirubin,Urine Negative Normal Negative [facility] Comment on above: Order Comment: Name Collection Type:: Clean-Voided Midstream Performed By: #### O BUDS, ADDONUAPLUS #### [facility] [address] [place] [address] Glucose Ql (U) Normal Normal Normal [facility] Comment on above: Order Comment: Name Collection Type:: Clean-Voided Midstream Performed By: #### O BUDS, ADDONUAPLUS #### [facility] [address] [place] [address] [place] Hyaline Casts,Urine 0-8 Normal 0-8 [facility] Comment on above: Order Comment: Name Collection Type:: Clean-Voided Midstream Result Comment: PERF ORMED BY: [place] [address] PATHOLOGIST IMPLEMENTATION ANALYST ROWDY KEY M.D. Performed By: #### O BUDS, ADDONUAPLUS #### [facility] [address] [place] [address] [place] Ketones Ql (U) Negative Normal Negative [facility] Comment on above: Order Comment: Name Collection Type:: Clean-Voided Midstream Performed By: #### O BUDS, ADDONUAPLUS #### [facility] [address] [place] [address] [place] Leukocyte esterase Test strip Ql (U) Negative Normal Negative [facility] Comment on above: Order Comment: Name Collection Type:: Clean-Voided Midstream Performed By: #### O BUDS, ADDONUAPLUS #### [address] Nitrite,Urine Negative Normal Negative [facility] Comment on above: Order Comment: Name Collection Type:: Clean-Voided Midstream Performed By: #### O BUDS, ADDONUAPLUS #### [address] Occult Blood,Urine Negative Normal Negative [facility] Comment on above: Order Comment: Name Collection Type:: Clean-Voided Midstream Result Comment: PERF ORMED BY: [place] [address] PATHOLOGIST IMPLEMENTATION ANALYST ROWDY KEY M.D. Performed By: #### O BUDS, ADDONUAPLUS #### [address] Protein,Urine Negative Normal Negative [facility] Comment on above: Order Comment: Name Collection Type:: Clean-Voided Midstream Performed By: #### O BUDS, ADDONUAPLUS #### [address] RBC,Urine None Seen Normal 0-4 [facility] Comment on above: Order Comment: Name Collection Type:: Clean-Voided Midstream Performed By: #### O BUDS, ADDONUAPLUS #### [address] Specificy [place],Urine 1.008 Normal 1.001-1.030 [facility] Comment on above: Order Comment: Name Collection Type:: Clean-Voided Midstream Performed By: #### O BUDS, ADDONUAPLUS #### [address] Squamous Epithelial Cell,Urine 0-1 Normal 0-2 [facility] Comment on above: Order Comment: Name Collection Type:: Clean-Voided Midstream Performed By: #### O BUDS, ADDONUAPLUS #### [address] Urobilinogen,Urine Normal Normal Normal [facility] Comment on above: Order Comment: Name Collection Type:: Clean-Voided Midstream Performed By: #### O PEGGY ADDONUAPLUS #### [facility] [address] WBC,Urine 1-2 Normal 0-4 [facility] Comment on above: Order Comment: Name Collection Type:: Clean-Voided Midstream Performed By: #### O BUDS, ADDONUAPLUS #### [facility] [address] Ketones Auto test strip (U) [Mass/Vol]Ordered By: MARIAH TADEO on 06-12-2022 Ketones (U) [Mass/Vol] Negative Negative [facility] - Drug toxicology Ordered By: MARIAH TADEO on 06-12-2022 Opiates Ql (U) Negative Negative [facility] - UrinalysisOrder ed By: MARIAH TADEO on 06-12-2022 Hyaline casts LM Ql (Urine sed) 0-8 [LPF] 0-8 [facility] Nitrite Test strip Ql (U)Ord ered By: MARIAH TADEO on 06-12-2022 Nitrite Ql (U) Negative Negative [facility] OB Urine Drug Screen (NO THC )on 06-12-2022 Amphetamine Screen,Urine Negative Normal Negative [facility] Comment on above: Performed By: #### C OVID-19 SAMMI, SOFIANEG #### [facility] [address] [place] [address] [place] Barbiturate Screen,Urine Negative Normal Negative [facility] Comment on above: Performed By: #### C OVID-19 SAMMI, SOFIANEG #### [facility] [address] [place] [address] [place] Benzodiazepines Screen,Urine Negative Normal Negative [facility] Comment on above: Performed By: #### C OVID-19 SAMMI, SOFIANEG #### [facility] [address] [place] [address] Cocaine Screen,Urine Negative Normal Negative [facility] Comment on above: Performed By: #### C OVID-19 SAMMI, SOFIANEG #### [facility] [address] Opiate Screen,Urine Negative Normal Negative [facility] Comment on above: Performed By: #### C OVID-19 SAMMI, SOFIANEG #### [facility] [address] Phencyclidine Screen, Urine Negative Normal Negative [facility] Comment on above: Result Comment: Thes e are unconfirmed results and should not be used for legal purposes. Drug Cut-Off Concentration: AMPH 1000 ng/mL DONALD 200 ng/mL CHIDI 200 ng/mL COCM 300 ng/mL OP 300 ng/mL PCP 25 ng/mL PERFORMED BY: [place] [address] PATHOLOGIST IMPLEMENTATION ANALYST ROWDY KEY M.D. Performed By: #### C OVID-19 SAMMI, SOFIANEG #### [address] Phencyclidine Screen Ql (U)O rdered By: MARIAH TADEO on 06-12-2022 Phencyclidine Ql (U) Negative Negative [facility] Comment on above: These are unconfirme d results and should not be used for legal purposes. Drug Cut-Off Concentration: AMPH 1000 ng/mL DONALD 200 ng/mL CHIDI 200 ng/mL COCM 300 ng/mL OP 300 ng/mL PCP 25 ng/mL Protein Auto test strip (U) [Mass/Vol]Ordered By: MARIAH TADEO on 06-12-2022 Protein (U) [Mass/Vol] Negative Negative [facility] Specific gravity Auto test s trip (U) [Rel density]Ordered By: MARIAH TADEO on 06-12-2022 Specific gravity (U) [Rel density] 1.008 1.001-1.030 [facility] Squamous epithelial cells de tection in urine sediment by light microscopyOrdered By: MARIAH TADEO on 06-12-2022 Epithelial cells.squamous LM Ql (Urine sed) 0-1 [HPF] 0-2 [facility] Urine bacteria detection by automated methodOrdered By: MARIAH TADEO on 06-12-2022 Bacteria Auto Ql (U) None seen None Seen [facility] Urine clarity by refractomet ry automatedOrdered By: MARIAH TADEO on 06-12-2022 Clarity Refractometry automated (U) Cloudy Clear [facility] Urine cocaine detectionOrder ed By: MARIAH TADEO on 06-12-2022 Cocaine Ql (U) Negative Negative [facility] Urine glucose measurement by automated test strip (mass/volume)Ordered By: MARIAH TADEO on 06-12-2022 Glucose Auto test strip (U) [Mass/Vol] Normal mg/dL Normal [facility] Urine hemoglobin detection b y automated test stripOrdered By: MARIAH TADEO on 06-12-2022 Hemoglobin Auto test strip Ql (U) Negative Negative [facility] Urine leukocyte esterase det ection by automated test stripOrdered By: MARIAH TADEO on 06-12-2022 Leukocyte esterase Auto test strip Ql (U) Negative Negative [facility] Urine pH measurement by auto mated test stripOrdered By: MARIAH TADEO on 06-12-2022 pH (U) 7.0 [pH] Normal 5.0-9.0 [facility] Comment on above: Order Comment: Name Collection Type:: Clean-Voided Midstream Performed By: #### O PEGGY, ADDONUAPLUS #### [address] Urobilinogen Auto test strip (U) [Mass/Vol]Ordered By: MARIAH TADEO on 06-12-2022 Urobilinogen (U) [Mass/Vol] Normal mg/dL Normal [facility] S. agalactiae Org specific c x Ql (Unsp spec)Ordered By: MARIAH TADEO on 06-07-2022 Streptococcus agalactiae culture No Group B Beta Streptococcus Isolated 3 Days [facility] Strep B Cultureon 06-03-2022 Strep B Culture Reason for Exam 36 weeks gestation of ; screening for stre Vaginal/Rectal Reason for Exam: 36 weeks gestation of ; screening for stre : Vaginal/Rectal No Group B Beta Streptococcus Isolated 3 Days PERFORMED BY: [place] [address] PATHOLOGIST IMPLEMENTATION ANALYST ROWDY KEY M.D. Normal [facility] Comment on above: Performed By: #### C USTB #### [place] [id number] [facility] Vital Signs Date Time Vital Sign Value Performing Clinician Manuel mathew 08-03-2024 10:38-0500 Body mass index (BMI) [Ratio] 32.59 kg/m2 Marly Odell COMPENSATION CONSULTANT Work Phone: [facility] 08-03-2024 10:38-0500 Body weight 92.99 kg Marly Odell COMPENSATION CONSULTANT Work Phone: [facility] 08-03-2024 10:38-0500 Diastolic blood pressure 84 mm[Hg] Marly Odell COMPENSATION CONSULTANT Work Phone: [facility] 08-03-2024 10:38-0500 Systolic blood pressure 126 mm[Hg] Marlyselene Odell COMPENSATION CONSULTANT Work Phone: [facility] 07-24-2024 09:58-0500 Blood Pressure Location Rosa Elena Forman [facility] 07-24-2024 09:58-0500 Body temperature 97.52 [degF] Rosa Elena Forman [facility] 07-24-2024 09:58-0500 Diastolic blood pressure 80 mm[Hg] Rosa Elena Forman [facility] 07-24-2024 09:58-0500 Heart rate 89 /min Rosa Elena Forman [facility] 07-24-2024 09:58-0500 SaO2% (BldA) [Mass fraction] 96 % Rosa Elena Forman [facility] 07-24-2024 09:58-0500 Systolic blood pressure 122 mm[Hg] Rosa Elena Forman [facility] 07-06-2024 16:19-0400 Body mass index (BMI) [Ratio] 34.02 kg/m2 Mariah Nataprawira DO Work Phone: [facility] 07-06-2024 16:19-0400 Body weight 97.07 kg Mariah Nataprawira DO Work Phone: [facility] 07-06-2024 16:19-0400 Diastolic blood pressure 80 mm[Hg] Mariah Nataprawira DO Work Phone: [facility] 07-06-2024 16:19-0400 Systolic blood pressure 126 mm[Hg] Mariah Nataprawira DO Work Phone: [facility] 06-08-2024 15:44-0400 Body mass index (BMI) [Ratio] 33.55 kg/m2 Marly Odell COMPENSATION CONSULTANT Work Phone: [facility] 06-08-2024 15:44-0400 Body weight 95.71 kg Marly Odell COMPENSATION CONSULTANT Work Phone: [facility] 06-08-2024 15:44-0400 Diastolic blood pressure 78 mm[Hg] Marly Odell COMPENSATION CONSULTANT Work Phone: [facility] 06-08-2024 15:44-0400 Systolic blood pressure 128 mm[Hg] Marly Odell COMPENSATION CONSULTANT Work Phone: [facility] 12-04-2023 10:20-0400 Blood Pressure Location SHAMEKA CHEN [facility] 12-04-2023 10:20-0400 Body temperature 98.24 [degF] SHAMEKA CHEN [facility] 12-04-2023 10:20-0400 Diastolic blood pressure 70 mm[Hg] SHAMEKA CHEN [facility] 12-04-2023 10:20-0400 Heart rate 75 /min SHAMEKA CHEN [facility] 12-04-2023 10:20-0400 SaO2% (BldA) [Mass fraction] 98 % SHAMEKA PEREIRATIZ [facility] 12-04-2023 10:20-0400 Systolic blood pressure 110 mm[Hg] SHAMEKA PEREIRATIZ [facility] 03-21-2023 11:34-0400 Blood Pressure Location Erin Orzech [facility] 03-21-2023 11:34-0400 Body temperature 97.7 [degF] Erin Orzech [facility] 03-21-2023 11:34-0400 Diastolic blood pressure 72 mm[Hg] Erin Orzech [facility] 03-21-2023 11:34-0400 Heart rate 71 /min Erin Orzech [facility] 03-21-2023 11:34-0400 SaO2% (BldA) [Mass fraction] 97 % Erin Orzech [facility] 03-21-2023 11:34-0400 Systolic blood pressure 120 mm[Hg] Erin Orzech [facility] 06-28-2022 07:30-0400 Body temperature 98 [degF] PHYSICIAN NO [facility] 06-28-2022 07:30-0400 Diastolic blood pressure 81 mm[Hg] PHYSICIAN NO [facility] 06-28-2022 07:30-0400 Heart rate 70 /min PHYSICIAN NO [facility] 06-28-2022 07:30-0400 Respiratory rate 16 /min PHYSICIAN NO [facility] 06-28-2022 07:30-0400 SaO2% (BldA) [Mass fraction] 96 % PHYSICIAN NO [facility] 06-28-2022 07:30-0400 Systolic blood pressure 125 mm[Hg] PHYSICIAN NO [facility] 06-25-2022 22:02-0400 Body height 167.64 cm PHYSICIAN NO [facility] 06-25-2022 22:02-0400 Body weight 102.51 kg PHYSICIAN NO [facility] 06-12-2022 13:00-0400 Respiratory rate 20 /min PHYSICIAN NO [facility] 06-12-2022 12:49-0400 Body temperature 97 [degF] PHYSICIAN NO [facility] 06-12-2022 12:49-0400 Diastolic blood pressure 81 mm[Hg] PHYSICIAN NO [facility] 06-12-2022 12:49-0400 Heart rate 82 /min PHYSICIAN NO [facility] 06-12-2022 12:49-0400 SaO2% (BldA) [Mass fraction] 96 % PHYSICIAN NO [facility] 06-12-2022 12:49-0400 Systolic blood pressure 122 mm[Hg] PHYSICIAN NO [facility] 06-12-2022 11:37-0400 Body height 170.18 cm PHYSICIAN NO [facility] 06-12-2022 11:37-0400 Body weight 101.15 kg PHYSICIAN NO [facility] Encounters Encounter Date Encounter Type Care Provider Facility Start: 08-03-2024 End: 08-03-2024 Bamboo flowsheet Marly Odell NP Work Phone: [facility] Start: 08-03-2024 End: 08-03-2024 Bamboo flowsheet Marly Odell NP Work Phone: [facility] Start: 08-03-2024 End: 08-03-2024 flow sheet Marly Odell NP Work Phone: [facility] Comment on above: related co ndition in third trimester (Primary Dx); 28 weeks gestation of ; Other obesity due to excess calories affecting in third trimester; Other pruritus Start: 07-24-2024 End: 07-24-2024 ambulatory Rosa Elena Forman Facility:[facility] Start: 07-24-2024 End: 07-24-2024 Patient encounter procedure Rosa Elena Forman [facility] Start: 07-06-2024 End: 07-06-2024 flow sheet Mariah Hamawira DO Work Phone: [facility] Comment on above: related co ndition, second trimester (Primary Dx); 24 weeks gestation of ; Screening for diabetes mellitus; Other obesity due to excess calories affecting in second trimester Start: 07-06-2024 End: 07-06-2024 ambulatory MARIAH TADEO Not Available Start: 07-06-2024 End: 07-06-2024 Bamboo flowsheet Mariah Hamawira DO Work Phone: [facility] Start: 07-06-2024 End: 07-06-2024 Bamboo flowsheet Mariah Pagan Nataprawira DO Work Phone: [facility] Start: 06-08-2024 End: 06-08-2024 flow sheet Marly Odell COMPENSATION CONSULTANT Work Phone: [facility] Comment on above: related co ndition, second trimester (Primary Dx); 20 weeks gestation of Start: 06-08-2024 End: 06-08-2024 ambulatory MARLY F ODELL Not Available Start: 05-10-2024 End: 05-10-2024 ambulatory MARLY F ODELL Not Available Start: 04-12-2024 End: 04-12-2024 ambulatory MARLY F ODELL Not Available Start: 03-16-2024 End: 03-16-2024 ambulatory MARLY ODELL Not Available Start: 03-01-2024 End: 03-01-2024 ambulatory MARLY F ODELL Not Available Start: 12-04-2023 End: 12-04-2023 ambulatory SHAMEKA CHEN Facility:[facility] Start: 12-04-2023 End: 12-04-2023 Patient encounter procedure SHAMEKA CHEN [facility] Start: 03-21-2023 End: 03-21-2023 Patient encounter procedure Erin [place] [facility] Start: 06-25-2022 End: 06-28-2022 Evaluation and management of inpatient Mariah Nataprawira Facility:[facility] Start: 06-25-2022 End: 06-28-2022 Evaluation and management of inpatient PHYSICIAN NO [facility] Start: 06-12-2022 End: 06-12-2022 ambulatory Mariah Nataprawira Facility:[facility] Start: 06-12-2022 End: 06-12-2022 ambulatory PHYSICIAN NO [facility] Work Phone: Start: 06-12-2022 End: 06-12-2022 Patient encounter procedure PHYSICIAN NO [facility] Labor - O/P Start: 06-03-2022 End: 06-03-2022 ambulatory Mariah Nataprawira Facility:[facility] Start: 06-03-2022 End: 06-03-2022 Departed Referred PHYSICIAN NO [facility] [place] Procedures Date Procedure Procedure Detail Performing Clinician Start: 08-03-2024 Urnls dip stick/tabl et rgnt non-auto w/o micrscp Marly Odell COMPENSATION CONSULTANT Work Phone: Start: 07-06-2024 Urnls dip stick/tabl et rgnt non-auto w/o micrscp Mariah J Nataprawira DO Work Phone: Start: 06-08-2024 Urnls dip stick/tabl et rgnt non-auto w/o micrscp Mariah J Nataprawira DO Work Phone: denies Erin Holman SARS Antigen (LFIA) PHYSICIA N NO FAMILY Streptococcus agalac tiae culture PHYSICIAN NO FAMILY Plan of Treatment Date Care Activity Detail Author Start: 08-25-2024 End: 08-25-2024 Patient encounter procedure 08/25/2024 3:45 PM EST Routine [facility] [address] [address] Mraiah Tadeo DO [address] [address] [facility] Start: 08-25-2024 End: 08-25-2024 Professional / ancillary services management 08/25/2024 3:00 PM EST Ancillary Procedure [facility] [address] [address] [facility] Start: 08-03-2024 End: 08-03-2025 Bile acids, total Bile acids, total Lab Routine related condition in third trimester Other pruritus Expected: 08/03/2024 (Approximate), Expires: 08/03/2025 [facility] Work Phone: Comment on above: Expected: 08/03/2024 (Approximate), Expires: 08/03/2025 Start: 08-03-2024 End: 08-03-2024 Patient encounter procedure [facility] Comment on above: related co ndition in third trimester (Primary Dx); 28 weeks gestation of ; Other obesity due to excess calories affecting in third trimester Start: 07-06-2024 End: 07-06-2024 Patient encounter procedure 07/06/2024 3:45 PM EDT Routine [facility] [address] [address] Mariah Tadeo DO [address] [facility] [address] [address] related condition, second trimester (Primary Dx); 24 weeks gestation of ; Screening for diabetes mellitus [facility] Comment on above: related co ndition, second trimester (Primary Dx); 24 weeks gestation of ; Screening for diabetes mellitus Start: 05-08-2024 Influenza vaccination Influenza Vacc ine (#1) [facility] Start: 06-28-2022 [facility] Start: 06-25-2022 Hospital admission [facility] Start: 06-12-2022 [facility] Start: 06-12-2022 Hospital admission [facility] Hemoglobin [Mass/vol ume] in Blood Hemoglobin and hematocrit, blood Lab Routine Screening for diabetes mellitus Ordered: 06/29/2024 [facility] Work Phone: Comment on above: Ordered: 06/29/2024 Measurement of gluco se 1 hour after glucose challenge for glucose tolerance test Glucose tolerance, 1 hour Lab Routine Screening for diabetes mellitus Ordered: 06/29/2024 [facility] Comment on above: Ordered: 06/29/2024 Patient Education [facility] Work Phone: Patient referral [facility] Work Phone: Immunizations Immunization Date Immunization Notes Care Provider Carolyn sutherland NEGATED: Highlighted row has not occurred!12-04-2023 influenza virus vaccine, unspecified formulation [employer] [facility] NEGATED: Highlighted row has not occurred!12-04-2023 SARS-CoV-2 mRNA (tozinameran 5y-11y) vaccine [employer] [facility] NEGATED: Highlighted row has not occurred!03-21-2023 SARS-CoV-2 mRNA (tozinameran 5y-11y) vaccine [employer] [facility] NEGATED: Highlighted row has not occurred!06-28-2022 tetanus toxoid, reduced diphtheria toxoid, and acellular pertussis vaccine, adsorbed PHYSICIAN NO FAMILY [facility] NEGATED: Highlighted row has not occurred!09-30-2019 influenza virus vaccine, live, attenuated, for intranasal use [employer] [facility] Comment on above: Result Comment: we d on't offer at this clinic Payers Date Payer Category Payer Blue Cross Blue [facility] BCBS [id number] 2022 Unknown [id number] 2022 Unknown [id number] 2022 Self-pay 2022 Private Health Insurance [employer] [id number] 2022 Unknown [id number] 2022 Unknown [id number] 2016 Unknown [id number] 1997 Unknown [id number] [id number]. 1259 1997 Unknown [id number] [id number]. 1259 1997 Unknown [id number] 2.16.840.1.549168.3.579.2. 1259 1997 Unknown [id number] 2.16.840.1.450257.3.579.2. 1259 1997 Unknown [id number] 2.16.840.1.815981.3.579.2. 1259 1997 Unknown [id number] 2.16.840.1.804878.3.579.2. 1259 1997 Unknown [id number] 2.16.840.1.168800.3.579.2. 1259 1997 Unknown [id number] 2.16.840.1.108936.3.579.2. 727 1997 Unknown [id number] 2.16.840.1.919001.3.579.2. 727 1997 Unknown [id number] 2.16.840.1.125041.3.579.2. 727 Unknown [id number] 2.16.840.1.159425.3.579.2. 531 Unknown [id number] [id number]. 531 Unknown [id number]. 531 Social History Date Type Detail Facility Tobacco smoking stat [facility] Unknown if ever smoked [facility] Work Phone: Start: 1995 Sex Assigned At Female F [facility] Start: 06-25-2022 End: 02-24-2023 Tobacco smoking status MAIS Never smoked tobacco (finding) [facility] Tobacco smoking status Never [facility] Start: 03-01-2024 End: 04-12-2024 Sex Assigned At Female [facility] Start: 02-24-2023 Tobacco use and exposure Smoke less tobacco non-user [facility] Start: 04-12-2024 Alcoholic beverage intake Ex-drinker (finding) [facility] Start: 03-01-2024 End: 04-12-2024 History of Social function [facility] Within the last year , have you been afraid of your partner or ex-partner? No [facility] Do you belong to any clubs or organizations such as uatsdin groups, unions, fraternal or athletic groups, or school groups? Yes [...] Assessment Result Facility 12-04-2023 Functional Status N/A [facility] 03-21-2023 Functional Status N/A [facility] 06-28-2022 Functional status Patient at Baseline [facility] Work Phone: Mental Status Date Assessment Result Facility 06-28-2022 Cognitive function Cognitive Sta tus Patient at Baseline [facility] Work Phone: Clinical Notes 06-26-2022 to 08-03-2024 Marly Odell NP - 08/03/2024 10:40 AM Edenilson Pruitt MA - 07/06/2024 3:45 PM Ed Tadeo DO - 07/06/2024 3:45 PM Estrellita Odell NP - 06/08/2024 3:30 PM EDT Note Date & Type Note Facility 08-03-2024 History of Present illness Narrative 1h GTT: 128, H/H: 12.6/37.3. Active movement. Denies ctx. She has a dry cough (no other symptoms)- went to urgent care, told to take robitussin which made her sick. She does not have asthma. She itches everywhere - same issue in a previous . Palms are itching to soles of feet, all over body. She has a rash on arms and stomach if she itches, it is not present today, but states it is red. Bile acids ordered. Recommend cough syrup, lozenges, warm beverages, increased hydration. Can take benadryl for itching. Growth and US scheduled in 3 wks. documented in this encounter [facility] 07-24-2024 Hospital Discharge instructions Patient Education 07/24/2024 10:39:53 Cough, Adult, [id number] Cough, Adult A cough helps to clear [...] Follow these instructions at home: Medicines Take [id number] and prescription medicines only as told by [...] provider. Document Revised: 04/24/2023 Document Reviewed: 04/24/2023 [employer] Patient Education 2023 [employer]. [facility] 07-24-2024 Note Patient Education ENT Cough, Adult A cough helps to clear your throat and lungs. It may be a sign of an illness or another condition. A short-term (acute) cough may last 2?3 weeks. A long-term (chronic) cough may last 8 or more weeks. Many things can cause a cough. They include: ??? Illnesses such as: ? An infection in your throat or lungs. ? Asthma or other heart or lung problems. ? Gastroesophageal reflux. This is when acid comes back up from your stomach. ??? Breathing in things that bother (irritate) your lungs. ??? Allergies. ??? Postnasal drip. This is when mucus runs down the back of your throat. ??? Smoking. ??? Some medicines. Follow these instructions at home: Medicines ??? Take vjhu-zuq-lxpokld and prescription medicines only as told by your doctor. ??? Talk with your doctor before you take cough medicine (cough suppressants). Eating and drinking ??? Do not drink alcohol. ??? Do not drink caffeine. ??? Drink enough fluid to keep your pee (urine) pale yellow. Lifestyle ??? Stay away from cigarette smoke. ??? Do not smoke or use any products that contain nicotine or tobacco. If you need help quitting, ask your doctor. ??? Stay away from things that make you cough. These may include perfume, candles, cleaning products, or campfire smoke. General instructions ??? Watch for any changes to your cough. Tell your doctor about them. ??? Always cover your mouth when you cough. ??? If the air is dry in your home, use a cool mist vaporizer or humidifier. ??? If your cough is worse at night, try using extra pillows to raise your head up higher while you sleep. ??? Rest as needed. Contact a doctor if: ??? You have new symptoms. ??? Your symptoms get worse. ??? You cough up pus. ??? You have a fever that does not go away. ??? Your cough does not get better after 2?3 weeks. ??? Cough medicine does not help, and you are not sleeping well. ??? You have pain that gets worse or is not helped with medicine. ??? You are losing weight and do not know why. ??? You have night sweats. Get help right away if: ??? You cough up blood. ??? You have trouble breathing. ??? Your heart is beating very fast. These symptoms may be an emergency. Get help right away. Call 911. ??? Do not wait to see if the symptoms will go away. ??? Do not drive yourself to the hospital. This information is not intended to replace advice given to you by your health care provider. Make sure you discuss any questions you have with your health care provider. Document Revised: 04/24/2023 Document Reviewed: 04/24/2023 Elsevier Patient Education ? 2023 [employer]. [facility] 07-06-2024 History of Present illness Narrative Glucola order, Tdap information, and kick count sheet provided for the patient. Denies any complaints. Growth us in 7w documented in this encounter [facility] 06-08-2024 History of Present illness Narrative Anatomy US today: EFW 36%, 3VC, post placenta, ZEHRA NL, normal anatomy, cx 42mm. Feeling movement, doing well. documented in this encounter [facility] 12-04-2023 Hospital Discharge instructions Patient Education 12/04/2023 14:09:28 BMI for [...] numbers. This can be done either in [place] ([place] or metric measurements. Note that charts and online BMI calculators are available to help you find your BMI quickly and easily without having to do these calculations yourself. To calculate your BMI in [place] ([place] measurements: 1.Measure your weight in pounds [...] Centers for Disease Control and Prevention: www.cdc.gov [place] [employer] Association: www.heart.org National Heart, Lung, and Blood [place]: www.nhlbi.nih.gov Summary Body mass index (BMI) is a number that is calculated from a person's weight and height. BMI may help estimate how much of a person's weight is composed of fat. BMI can help identify those who may be at higher risk for certain medical problems. BMI can be measured using [place] measurements or metric measurements. BMI charts are used to identify whether you are underweight, normal weight, overweight, or obese. This information is not intended to replace advice given to you by your health care provider. Make sure you discuss any questions you have with your health care provider. Document Revised: 05/16/2020 Document Reviewed: 03/23/2020 [employer] Patient Education 2022 [employer]. 12/04/2023 14:09:25 Knee Sprain, Adult, Stjk-pe-Tmme Knee Sprain A knee sprain is a [...] sitting or lying down. General instructions Take uyea-lca-kkxlxwo and prescription medicines only as told by [...] provider. Document Revised: 12/01/2022 Document Reviewed: 07/13/2020 [employer] Patient Education 2022 [employer]. Follow Up Care 12/04/2023 09:04:53 With:NONE, XXXX Address: [phone] When: Unknown [facility] 03-21-2023 Hospital Discharge instructions Patient Education 03/21/2023 12:17:23 Otitis Externa [...] if you start to feel better. Take jeah-zjw-gbvcfog and prescription medicines only as told by [...] provider. Document Revised: 11/06/2021 Document Reviewed: 11/06/2021 [employer] Patient Education 2022 [employer] Inc[employer] 03/21/2023 12:17:15 BMI for Adults BMI for [...] numbers. This can be done either in [place] or metric measurements. Note that charts and online BMI calculators are available to help you find your BMI quickly and easily without having to do these calculations yourself. To calculate your BMI in [place] measurements: 1.Measure your weight in pounds [...] Centers for Disease Control and Prevention: www.cdc.gov [place] [employer] Association: www.heart.org National Heart, Lung, and Blood [place]: www.nhlbi.nih.gov Summary Body mass index (BMI) is a number that is calculated from a person's weight and height. BMI may help estimate how much of a person's weight is composed of fat. BMI can help identify those who may be at higher risk for certain medical problems. BMI can be measured using [place] measurements or metric measurements. BMI charts are used to identify whether you are underweight, normal weight, overweight, or obese. This information is not intended to replace advice given to you by your health care provider. Make sure you discuss any questions you have with your health care provider. Document Revised: 05/16/2020 Document Reviewed: 03/23/2020 [employer] Patient Education 2022 [employer]. 03/21/2023 11:48:46 BMI for Adults BMI for [...] numbers. This can be done either in [place] or metric measurements. Note that charts and online BMI calculators are available to help you find your BMI quickly and easily without having to do these calculations yourself. To calculate your BMI in [place] ([place] measurements: 1.Measure your weight in pounds [...] Centers for Disease Control and Prevention: www.cdc.gov [place] Heart Association: www.heart.org National Heart, Lung, and Blood [place]: www.nhlbi.nih.gov Summary Body mass index (BMI) is a number that is calculated from a person's weight and height. BMI may help estimate how much of a person's weight is composed of fat. BMI can help identify those who may be at higher risk for certain medical problems. BMI can be measured using [place] measurements or metric measurements. BMI charts are used to identify whether you are underweight, normal weight, overweight, or obese. This information is not intended to replace advice given to you by your health care provider. Make sure you discuss any questions you have with your health care provider. Document Revised: 05/16/2020 Document Reviewed: 03/23/2020 [employer] Patient Education 2022 [employer]. Follow Up Care 03/21/2023 10:57:12 With:NONE, XXXX Address: [phone] When: Unknown [facility] 06-28-2022 Progress note Note Date/Time June 28, 2022 11:31am [facility] [address] [place] [address] TALENT SCOUT Progress Note Signed Patient: Tiffanie Ochoa MR#: [id number] : 1995 Acct:[id number] Age/Sex: 26 / F Adm Date: 2 Loc: Room: [address] [place] [address] Type: ADM IN Attending Dr: Mariah Tadeo [...] colace. Bleeding: Lochia appropriate. Predelivery Hgb 12.5. [id number]. Postdelivery Hgb 11.2. Asymptomatic. Fawn Harris OMS-III 06/28/22 8:21a Plan day: 2 Vaginal delivery plan (if applicable): routine care, discharge home and follow up 6 weeks Documented By: MARIAH TADEO DO 06/28/22 0817 Signed By: <Electronically signed by MARIAH TADEO DO> 06/28/22 1131 [facility] Work Phone: 1(462) 949-532310-21-2022 Progress note Author -RAYSHAWN Ahmadi [facility] June 27, 2022 10:53am Note Date/Time June 27, 2022 1 0:53am [facility] [address] [place], [place] [id number] TALENT SCOUT Progress Note Signed Patient: Tiffanie Ochoa MR#: [id number] : 1995 Acct:[id number] Age/Sex: 26 / F Adm Date: 2 Loc: 3S Room: [address] [place] [address] Type: ADM IN Attending Dr: Mariah Tadeo [...] % (Auto) 78.7, Lymph % (Auto) 12.0, Spink % (Auto) 8.6, Eos % (Auto) 0.4, Baso % (Auto) 0.3, Neut # (Auto) 14.1 H, Lymph # (Auto) 2.1, Spink # (Auto) 1.5 H, Eos # (Auto) [...] colace. Bleeding: Lochia appropriate. Predelivery Hgb 12.5. [id number]. Postdelivery Hgb 11.2. Asymptomatic. Fawn Harris OMS-III 06/27/22 7:38a Plan day: 1 Vaginal delivery plan (if applicable): routine care Documented By: TIN Borges 06/27/22 07 33 Signed By: <Electronically signed by TIN Ahmadi> 06/27/22 1053 [facility] Work Phone: 1(405) 697-233910-20-2022 [facility] No data available for this section [facility] Evaluation noteNo assessment information available [facility] Work Phone: Evaluation note* Diagnosis Onset Date Resolution Status Status post vaginal delivery acute [facility] Work Phone: Evaluation note* Diagnosis related condition, second trimester- Primary 20 weeks gestation of documented in this encounter [facility]* Diagnosis related condition, second trimester- Primary 24 weeks gestation of Screening for diabetes mellitus Other obesity due to excess calories affecting in second trimester documented in this encounter [facility]* Diagnosis related condition in third trimester- Primary 28 weeks gestation of Other obesity due to excess calories affecting in third trimester Other pruritus documented in this encounter [facility] Discharge instructions No data available for this section [facility] No data available for this section [facility] Chief Complaint and Reason [...] DO Admit Provider, Attending Provid er Active Staff Radiation Therapist Relationship Specialty Start Date End Date Unallocated, Rayshawn Muñoz MD [facility] [place] [address] PCP - General 02/24/23 Staff Radiation Therapist Relationship Specialty Start Date End Date Unallocated, Rayshawn Muñoz MD [address] [place], [place] [address] [address] PCP - General 02/24/23 Staff Radiation Therapist Relationship Specialty Start Date End Date Unallocated, Rayshawn Muñoz MD [address] [place] [address] [place] [address] PCP - General 02/24/23 Staff Radiation Therapist Relationship Specialty Start Date End Date Unallocated, Rayshawn Muñoz MD [address] [place], [place] [address] [address] PCP - General 02/24/23 Staff Radiation Therapist Relationship Specialty Start Date End Date Unallocated, Rayshawn Muñoz MD [address] [place], [place] [address] [address] PCP - General 02/24/23 Goals (unrecognized section and content) Goals may be documented in a n alternate section No data available for this section No data available for this section No data available for this section No data available for this section INFORMATION SOURCE (unrecogn ized section and content) DATE CREATED AUTHOR 10/31/2022 [facility] DATE CREATED AUTHOR AUTHOR'S ORGANIZ ATION 07/08/2024 [facility] DATE CREATED AUTHOR AUTHOR'S ORGANIZ ATION 07/26/2024 [facility] FOR RECORDS PERTAINING TO PATIENTS WHO ARE [...] BE BASED ON THE PRIMARY CLINICAL RECORDS. [employer] provides no warranty or guarantee of the accuracy or completeness of information in this document.
[2024-08-06 21:09] LABS: Bile Acids 14.3 umol/L (0.0-10.0)
== END 2024-08-05 08:36 | disposition home or self-care (01) ==
LOC: LAB 08:35
PROVIDERS: Visit Provider Nurse Practitioner Women's Health
DX: O26.93 Pregnancy related conditions, unspecified, third trimester (principal); L29.89 Other pruritus
CPT/HCPCS: 36415; 82239

== ENCOUNTER 2024-08-22 09:24 | Outpatient (OUT) | payer OTHER, BC, SELFPAY ==
--- OUTSIDE RECORDS SUMMARY | 2024-08-22 09:45 | XMS_ITS | CCD ---
Author Organization [facility] ion [facility] Care Team Providers Care Roller Name Role Phone Natgermán, DO Mariah Attending Provider NO FAMILY, PHYSICIAN Primary Care Provider Unava ilable Nataprawira, DO Mariah Referring Provider Nataprawira, DO Mariah Admit Provider [phone] Nataprawira, Mariah Attending Unavailable Nataprawira, Mariah Admitting Unavailable Nataprawira, Mariah Admitting Unavailable NO FAMILY, PHYSICIAN Primary Care Unavailable Nataprawira, Mariah Attending Unavailable Nataprawira, Mariah Admitting Unavailable NO FAMILY, PHYSICIAN Primary Care Unavailable Nataprawira, Mariah Referring Unavailable Nataprawira, Mariah Attending Unavailable NONE, XXXX Primary Care Physician Unavailab le Andrescated , Noms Provider Primary Care Provi nomi MARLY ODELL Attending Unavailable MARLY ODELL Attending Unavailable MARLY ODELL Attending Unavailable MARLY ODELL Attending Unavailable JANYAWIRA, MARIAH J Attending Unavailable MARLY ODELL Attending Unavailable SHAMEKA CHEN Attending Unavailable SHAMEKA CHEN Attending Unavailable Rosa Elena Forman Attending Unavailable SHAMEKA CHEN Attending Unavailable SHAMEKA CHEN Admitting Unavailable AHSAN ROTHMAN Attending Unavailable MARLY ODELL Referring Unavailable NO PRIMARY CARE, Primary Care Unavailable AHSAN ROTHMAN Attending Unavailable MARLY ODELL Referring Unavailable NO PRIMARY CAREMD Primary Care Unavailable Allergies Allergy Classification Reported Allergen(s) Allergy Type Date of Onset Reaction(s) Facility (12 sources) Dextromethorphan; Translations: [dextromethorphan] Drug Allergy 2 [facility] (13 sources) guaiFENesin; Translations: [guaifenesin] Drug Allergy 2 [facility] (12 sources) Phenylephrine; Translations: [phenylephrine] Drug Allergy 2 [facility] (9 sources) Dextromethorphan Drug Allergy 4 Itching [facility] Medications Current Medications Medication Drug Class(es) Dates Sig (Normalized) Sig (Original) amoxicillin 875 mg oral tablet (1 source) Penicillin-class Antibacterial Start: 08-06-2024 End: 08-16-2024 take 1 tablet by mouth twice daily amoxicillin 875 mg Tab 875 mg = 1 tab(s), Oral, BID, X 10 day(s), # 20 tab(s), Refills(s) 0, Pharmacy: [facility], 168, cm, 08/06/24 10:12:00 EST, Height/Length Dosing, 92.3, kg, 08/06/24 10:12:00 EST, Weight Dosing Start Date: 08/06/24 Stop Date: 08/16/24 Status: Ordered docusate sodium 100 mg oral capsule (1 source) Start: 06-28-2022 take 100 mg by mouth at bedtime Docusate Sodium Active 100 MG PO Bedtime 30 June 28, 2022 12:00am ibuprofen 600 mg oral tablet (1 source) Nonsteroidal Anti-inflammatory Drug Start: 06-28-2022 take 600 mg by mouth every six hours Ibuprofen Active 600 MG PO Q6H 60 June 28, 2022 12:00am Navarino (No Known Home Meds) (1 source) Start: 06-25-2022 Navarino (No Known Home Meds) Active June 25, 2022 12:00am ofloxacin 3 mg/ml otic solution (1 source) Quinolone Antimicrobial Start: 03-21-2023 End: 03-28-2023 ofloxacin Otic 0.3% Grisel 10 drop(s), Otic, Daily for 7 day(s), 10 mL, Refill(s) 0, [facility], 168, cm, 03/21/23 11:37:00 EDT, Height/Length Dosing, 101, kg, 03/21/23 11:37:00 EDT, Weight Dosing Start Date: 03/21/23 Stop Date: 03/28/23 Status: Ordered Vit-Fe Fumarate-FA ( VITAMINS PO) (9 sources) Vit-Fe Fumarate-FA ( VITAMINS PO) Take [...] Chronic Other nutritional; endocrine; and metabolic disorders (5 sources) Body mass index 30+ - obesity 12-04-2023 Chronic Other nutritional; endocrine; and metabolic disorders (2 sources) Obese class I; Translations: [Body mass index (BMI) 33.0-33.9, adult] Onset: 12-04-2023 Chronic Other screening for suspected conditions (not mental disorders or infectious disease) (7 sources) No current problems or disability; Translations: [Patient encounter status] 02-23-2014 Episodic Pneumonia (except that caused by tuberculosis or sexually transmitted disease) (2 sources) Pneumonia; Translations: [Pneumonia, unspecified organism] Onset: 08-06-2024 Episodic Residual codes; unclassified (2 sources) Gestation [...] of ] 08-03-2024 Episodic Sprains and strains (5 sources) Sprain of knee; Translations: [Sprain of [...] NEGATED: Highlighted row has been ruled out!Unclassified (9 sources) No known active problems 04-12-2024 Results Test Name Value Interpretation Reference Range Facility Family Medicine Office/Clini c Noteon 08-08-2024 Family Medicine Office/Clinic Note Family Medicine Office/Clinic Note Chief Complaint cough HPI Staff complaints of cough Onset: 1 month Characteristics: sinus pressure, trouble sleeping, SOB, 7mth , pt states son has pneumonia OTC tried:Robitussin with no relief. History of Present Illness Reviewed and agree with above documented HPI by expert medical writer. Portions of this record may have been created with voice recognition artificial intelligence software, specifically [employer]ku, [employer] and or [employer] Substitutions may have occurred due to the inherent limitations of voice recognition and artificial intelligence software. 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, she has been sick with upper respiratory infection, states she is 7 months , has not been having abdominal pain, vaginal bleeding or vaginal discharge, patient states [facility], for the same chief complaint, was informed as possible viral infection and to take otbn-cde-jnwuqpp Robitussin, has been taking it with some relief, states she brought her son yesterday [facility], he was seen and diagnosed with pneumonia by chest x-ray, patient prefers not to have a chest x-ray being 7 months , she is not sure she has pneumonia or bronchitis, states she has had bronchitis before, but she has not had fevers with bronchitis, states when she is having coughing spells when she is tries to lay supine she has shortness of breath. Patient states she does not have much of an appetite but she has been eating and drinking, has a sense of taste and smell intact, has some discomfort with chewing food, and swallowing, but no difficulty swallowing. Patient denies having any headaches, dizziness, acute visual changes, nausea vomiting, difficulty swallowing, productive cough, chest pain, dyspnea on exertion, focal weakness. Review of Systems PHQ Score Initial Depression Screen Score: 0 SCORE Physical Exam Vitals & Measurements T: 37 ???C(Temporal Artery) HR: 95(Peripheral) BP: 120/60 SpO2: 99% HT: 66 in HT: 168 cm WT: 92.3 kg WT: 203.486 lb BMI: 32.7 General: Well developed, well nourished, in no acute distress. Patient does appear ill but not septic. No respiratory distress. Patient answers questions appropriately and in complete sentences. Follows commands appropriately. Head: Normocephalic/atrau matic positive upper respiratory infection. Eyes: Pupils equal, round, and reactive to light. Conjunctivae and sclerae normal. Ears: Bilateral TMs and bilateral external canals are both within normal limits. Hearing is intact. Nose: No deformity, discharge, inflammation, or lesions Mouth: Mucous membranes moist. Normal oropharynx, and posterior pharynx without erythema, postnasal drip, exudates, lesions, or enlarged tonsils. No trismus. No difficulty swallowing. Neck: Neck supple. No masses or palpable cervical nodes. Lungs: Normal respiratory effort and clear to auscultation throughout.. No rales, crackles, or decreased breath sounds. Cardio: regular rate and rhythm, no murmur. No chest wall tenderness. Abdomen: soft, nondistended, BS normal and active x4. Denies tenderness with palpation. Neurologic: Grossly normal Skin: No rashes, ulcerations, or suspicious lesions Lymph Nodes: no lad Mental Status: alert, active Assessment/Plan 28-year-old female presented to [facility], for community-acquired pneumonia, symptoms started 4 days ago, patient's son was brought in similar symptoms, just recently been treated for pneumonia, patient is concerned that she has pneumonia, she is 7 months , prefer no imaging at this time, patient did appear ill but not septic. No respiratory distress or difficulty swallowing. Patient was given a prescription for oxacillin, instructed to take rtdt-bzv-bensxol Tylenol only for body aches, fevers, headaches. Drink plenty of fluids to stay hydrated. Follow-up with primary care provider as needed. 1. Community acquired pneumonia (J18.9: Pneumonia, unspecified organism) See above 2. BMI 32.0-32.9,adult (Z68.32: Body mass index [BMI] 32.0-32.9, adult) The standard range for ages 18 and older is >=18.5 and < 25 kg/m2. Your BMI today was above this range, this falls in the overweight to obese category and there are medical benefits to weight loss. We can offer counselling, referral, and/or medical support in addressing this problem. Your BMI and weight management will be followed at subsequent visits. Follow-up With When Contact Information NONE, XXXX [phone] Additional Instructions: Patient Education BMI for Adults Community-Acquired Pneumonia, Adult, Gmbu-dh-Savz Problem List/Past Medical History Ongoing BMI 32.0-32.9,adult BMI 33.0-33.9,adult Community acquired pneumonia Right knee sprain Historical denies Procedure (more content not included)... Normal [facility] Comment on above: Result Comment: Elec tronically Signed By: GUSTAVO MADRIGAL, SHAMEKA\.br\Date and Time Signed: 08/08/24 09:59 EST Ambulatory Visit Summaryon 1 10-06-2023 Ambulatory Visit Summary Ambulatory Visi t Summary LAWANDA OCHOA :1995 Visit Date:08/06/2024 Ambulatory Visit Instructions Your Diagnosis Community acquired pneumonia BMI 32.0-32.9,adult Your Care Team Attending Physician - SHAMEKA CHEN PA-C Primary Care Physician - NONE, XXXX This Is Your Medications List amoxicillin (amoxicillin 875 mg Tab) Procedures Performed denies. Discharge Vitals Temperature (Temporal Artery) 37 ???C Heart Rate (Peripheral) 95 Blood Pressure 120/60 Height 168 cm Height 66 in Weight 92.3 kg Weight 203.486 lb BMI 32.7 Medications What How Much When Why Instructions New amoxicillin (amoxicillin 875 mg Tab) 1 Tablets By Mouth 2 times a day Community acquired pneumonia Duration: 10 Days Pickup at [facility] Pharmacy Information [facility]: [address] [place], [place] [id number] [phone] Allergies No Known Allergies Problems Ongoing - Any problem that you are currently receiving treatment for. BMI 32.0-32.9,adult BMI 33.0-33.9,adult Community acquired pneumonia Right knee sprain Historical - Any problem that you are no longer receiving treatment for. denies Patient Survey You may receive a survey via text or e-mail asking about your office visit. Please share your experience with us by completing your survey. We appreciate your feedback and thank you for choosing us for your care. Normal [facility] BILE ACIDS FRACT BLDon 1 10-06-2023 BILE ACIDS 14.3 umol/L Abnormal 0.0 - 10.0 umol/L [facility] Comment on above: Performed at: [address] [id number] Inside Sales Territory Manager: Isak Horan MD, Phone: [phone] Interpretation and review of laboratory results Abnormal [facility] No Panel Informationon 08-03 Glucose, UA Negative Negative - 2000(110) ++++ mg/dL [facility] Leukocytes, UA Negative Negative - 500+++ Juan Alberto/mcL [facility] Nitrite, UA Negative Negative - Positive [facility] Protein, UA Negative Negative - 2000(20) ++++ mg/dL [facility] Ambulatory Visit Summaryon 1 09-23-2023 Ambulatory Visit Summary Ambulatory Visi t Summary LAWANDA OCHOA :1995 Visit Date:07/24/2024 Ambulatory Visit Instructions [...] these instructions at home: Medicines ??? Take viuk-dbq-xgxsmab and prescription medicines only as told by [...] 04/24/2023 Document Reviewed: 04/24/2023 Elsevier Patient Education ??? 2023 [employer] Rosa Magana [facility] Family Medicine Office/Clini c Noteon 07-24-2024 Family [...] with voice recognition software. Occasional wrong-word or ???ktpjk-b-ukzw??? substitutions may have occurred due to the [...] test today. She has not taken any yxze-onm-xzlxtdh medication. Review of Systems PHQ Score Initial [...] DM. Patient plans to follow-up with her taper/finisher as planned. Patient verbalized understanding and agreement with this plan. 1. Acute cough (R05.1: Acute cough) As above in #1 May use Robitussin OTC without the dextromethorphan for her symptoms. He may also use cough drops. 2. 27 weeks gestation of (Z3A.27: 27 weeks gestation of ) Stable and following with taper/finisher as planned. Follow-up No qualifying data available Patient Education Cough, Adult, Qhmk-fm-Wnph Problem List/Past Medical History Ongoing BMI 33.0-33.9,adult [...] mRNA (tozinameran 5y-11y) vac - Not Given Postpone due to refusal SARS-CoV-2 mRNA (tozinameran 5y-11y) vac - Not Given Patient Refuses influenza virus vaccine, live, trivalent - Not Given Postpone due to refusal we don't offer at this clinic Normal [facility] Comment on above: Result Comment: Elec tronically Signed By: Siena Stahl\.br\Date and Time Signed: 07/24/24 10:40 EST No Panel Informationon 07-06 Glucose, UA Negative Negative - 1999(110) ++++ mg/dL [facility] Interpretation and review of laboratory results Normal [facility] Protein, UA Negative Negative - 1999(20) ++++ mg/dL [facility] No Panel Informationon 06-08 Glucose, UA Negative Negative - 1999(110) ++++ mg/dL [facility] Interpretation and review of laboratory results Normal [facility] Protein, UA Negative Negative - 1999(20) ++++ mg/dL [facility] Ambulatory Visit Summaryon 0 12-04-2023 Ambulatory Visit Summary LAWANDA OCHOA :1995 Visit Date:12/04/2023 Ambulatory Visit Instructions Your Diagnosis Knee pain Your Care Team Attending Physician - GUSTAVO MADRIGAL, SHAMEKA Primary Care Physician - NONE, XXXX Procedures [...] you for choosing us for your care. Normal [facility] Family Medicine Office/Clini c Noteon 12-04-2023 Family [...] and agree with above documented HPI by expert medical writer. Portions of this record may have been created with voice recognition artificial intelligence software, specifically haku, [employer] and or [employer] Substitutions may have occurred due to the inherent limitations of voice recognition and artificial intelligence software. 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 Normal [facility] Comment on above: Result Comment: Elec tronically [...] numbers. This can be done either in [place] ([place] or metric measurements. Note that charts and online BMI calculators are available to help you find your BMI quickly and easily without having to do these calculations yourself. To calculate your BMI in [place] ([place] measurements: 1. Measure your weight in [...] for Disease Control and Prevention: www.cdc.gov ? [place] Heart Association: www.heart.org ? National Heart, Lung, and Blood [place]: www.nhlbi.nih.gov Summary ? Body mass index (BMI) is a number that is calculated from a person's weight and height. ? BMI may help estimate how much of a person's weight is composed of fat. BMI can help identify those who may be at higher risk for certain medical problems. ? BMI can be measured using [place] measurements or metric measurements. ? BMI charts are used to identify whether you are underweight, normal weight, overweight, or obese. This information is not intended to replace advice given to you by your health care provider. Make sure you discuss any questions you have with your health care provider. Document Revised: 05/16/2020 Document Reviewed: 03/23/2020 [employer] Patient Education ? 2022 [employer] Orthopedics Knee Sprain A knee sprain is [...] or splint. (more content not included)... Normal [facility] XR Knee Complete 4+ Views Yessica palmer 12-04-2023 XR Knee Complete 4+ Views Right [...] mGy = . DAP = . Normal [facility] Basophils Auto (Bld) [#/Vol] Ordered By: MARIAH TADEO on 06-27-2022 Basophils (Bld) [#/Vol] 0.1 10*3/uL 0.0-0.2 [facility] Basophils/100 WBC Auto (Bld) Ordered By: MARIAH TADEO on 06-27-2022 Basophils/100 WBC (Bld) 0.3 % . [facility] Complete Blood Count Auto Di ffon 06-27-2022 Basophils (Bld) [#/Vol] 0.1 10*3/uL Normal 0.0-0.2 [facility] Comment on above: Order Comment: Comme nt Draw at 630 am Result Comment: PERF ORMED BY: [facility] [address] [address] PATHOLOGIST MEDICINE ASSISTANT ROWDY KEY M.D. Performed By: #### C BC #### [address] Basophils/100 WBC (Bld) 0.3 % Normal . [facility] Comment on above: Order Comment: Comme nt Draw at 630 am Performed By: #### C BC #### [address] Eosinophils (Bld) [#/Vol] 0.1 10*3/uL Normal 0.0-0.45 [facility] Comment on above: Order Comment: Comme nt Draw at 630 am Performed By: #### C BC #### [address] Eosinophils/100 WBC (Bld) 0.4 % Normal . [facility] Comment on above: Order Comment: Comme nt Draw at 630 am Performed By: #### C BC #### [address] Erythrocyte distribution width (RBC) [Ratio] 13.6 % Normal 11.9-15.3 [facility] Comment on above: Order Comment: Comme nt Draw at 630 am Performed By: #### C BC #### [address] Hematocrit (Bld) [Volume fraction] 33.7 % Low 34.0-46.4 [facility] Comment on above: Order Comment: Comme nt Draw at 630 am Performed By: #### C BC #### [address] Hemoglobin (Bld) [Mass/Vol] 11.2 g/dL Low 11.8-15.4 [facility] Comment on above: Order Comment: Comme nt Draw at 630 am Performed By: #### C BC #### [place] [address] [place] Lymphocytes (Bld) [#/Vol] 2.1 10*3/uL Normal 1.00-4.8 [facility] Comment on above: Order Comment: Comme nt Draw at 630 am Performed By: #### C BC #### [address] [address] [place] Lymphocytes/100 WBC (Bld) 12.0 % Normal . [facility] Comment on above: Order Comment: Comme nt Draw at 630 am Performed By: #### C BC #### [facility] [address] MCH (RBC) [Entitic mass] 29.7 pg Normal 24.7-34.3 [facility] Comment on above: Order Comment: Comme nt Draw at 630 am Performed By: #### C BC #### [address] MCV (RBC) [Entitic vol] 89.4 fL Normal 80-100 [facility] Comment on above: Order Comment: Comme nt Draw at 630 am Performed By: #### C BC #### [address] Mean Corpuscular HGB Conc 33.2 g/dL Normal 32.0-35.0 [facility] Comment on above: Order Comment: Comme nt Draw at 630 am Performed By: #### C BC #### [place] [address] [place] Monocytes (Bld) [#/Vol] 1.5 10*3/uL High 0.0-0.8 [facility] Comment on above: Order Comment: Comme nt Draw at 630 am Performed By: #### C BC #### [place] [address] [place] Monocytes/100 WBC (Bld) 8.6 % Normal . [facility] Comment on above: Order Comment: Comme nt Draw at 630 am Performed By: #### C BC #### [facility] [address] [place] [address] [place] Neutrophils (Bld) [#/Vol] 14.1 10*3/uL High 1.8-7.7 [facility] Comment on above: Order Comment: Comme nt Draw at 630 am Performed By: #### C BC #### [place] [address] [place] Neutrophils/100 WBC (Bld) 78.7 % Normal . [facility] Comment on above: Order Comment: Comme nt Draw at 630 am Performed By: #### C BC #### [address] Nucleated RBC/100 WBC (Bld) [Ratio] 0.0 % Normal 0-0.5 [facility] Comment on above: Order Comment: Comme nt Draw at 630 am Performed By: #### C BC #### [address] Platelet mean volume (Bld) [Entitic vol] 8.2 fL Normal 6.3-10.7 [facility] Comment on above: Order Comment: Comme nt Draw at 630 am Performed By: #### C BC #### [address] Platelets (Bld) [#/Vol] 248 10*3/uL Normal 150-450 [facility] Comment on above: Order Comment: Comme nt Draw at 630 am Performed By: #### C BC #### [address] RBC (Bld) [#/Vol] 3.76 10*6/uL Normal 3.60-5.00 [facility] Comment on above: Order Comment: Comme nt Draw at 630 am Performed By: #### C BC #### [place] [address] [place] WBC (Bld) [#/Vol] 17.9 10*3/uL High 4.5-11.0 [facility] Comment on above: Order Comment: Comme nt Draw at 630 am Performed By: #### C BC #### [place] [address] [place] Eosinophils Auto (Bld) [#/Vo l]Ordered By: MARIAH TADEO on 06-27-2022 Eosinophils (Bld) [#/Vol] 0.1 10*3/uL 0.0-0.45 [facility] Eosinophils/100 WBC Auto (Bl d)Ordered By: MARIAH TADEO on 06-27-2022 Eosinophils/100 WBC (Bld) 0.4 % . [facility] Erythrocyte distribution wid th Auto (RBC) [Ratio]Ordered By: MARIAH TADEO on 06-27-2022 Erythrocyte distribution width (RBC) [Ratio] 13.6 % 11.9-15.3 [facility] Hematocrit Auto (Bld) [Volum e fraction]Ordered By: MARIAH TADEO on 06-27-2022 Hematocrit (Bld) [Volume fraction] 33.7 % 34.0-46.4 [facility] Hemoglobin [Mass/volume] in BloodOrdered By: MARIAH TADEO on 06-27-2022 Hemoglobin (Bld) [Mass/Vol] 11.2 g/dL 11.8-15.4 [facility] Laboratory - Hematology and Cell countsOrdered By: MARIAH TADEO on 06-27-2022 Nucleated RBC/100 WBC (Bld) [Ratio] 0.0 % 0-0.5 [facility] Leukocytes [#/volume] in Blo od by Automated countOrdered By: MARIAH TADEO on 06-27-2022 WBC (Bld) [#/Vol] 17.9 10*3/uL 4.5-11.0 [facility] Lymphocytes Auto (Bld) [#/Vo l]Ordered By: MARIAH TADEO on 06-27-2022 Lymphocytes (Bld) [#/Vol] 2.1 10*3/uL 1.00-4.8 [facility] Lymphocytes/100 WBC Auto (Bl d)Ordered By: MARIAH TADEO on 06-27-2022 Lymphocytes/100 WBC (Bld) 12.0 % . [facility] MCH Auto (RBC) [Entitic mass ]Ordered By: MARIAH TADEO on 06-27-2022 MCH (RBC) [Entitic mass] 29.7 pg 24.7-34.3 [facility] MCHC Auto (RBC) [Mass/Vol]Or dered By: MARIAH TADEO on 06-27-2022 MCHC (RBC) [Mass/Vol] 33.2 g/dL 32.0-35.0 [facility] MCV Auto (RBC) [Entitic vol] Ordered By: MARIAH TADEO on 06-27-2022 MCV (RBC) [Entitic vol] 89.4 fL 80-100 [facility] Monocytes Auto (Bld) [#/Vol] Ordered By: MARIAH ROSITA on 06-27-2022 Monocytes (Bld) [#/Vol] 1.5 10*3/uL 0.0-0.8 [facility] Monocytes/100 WBC Auto (Bld) Ordered By: MARIAH TADEO on 06-27-2022 Monocytes/100 WBC (Bld) 8.6 % . [facility] Neutrophils Auto (Bld) [#/Vo l]Ordered By: MARIAH TADEO on 06-27-2022 Neutrophils (Bld) [#/Vol] 14.1 10*3/uL 1.8-7.7 [facility] Neutrophils/100 WBC Auto (Bl d)Ordered By: MARIAH TADEO on 06-27-2022 Neutrophils/100 WBC (Bld) 78.7 % . [facility] [place] [facility] Platelet mean volume Auto (B ld) [Entitic vol]Ordered By: MARIAH TADEO on 06-27-2022 Platelet mean volume (Bld) [Entitic vol] 8.2 fL 6.3-10.7 [facility] [place] [facility] Platelets Auto (Bld) [#/Vol] Ordered By: MARIAH TADEO on 06-27-2022 Platelets (Bld) [#/Vol] 248 10*3/uL 150-450 [facility] [place] [facility] RBC Auto (Bld) [#/Vol]Ordere d By: MARIAH TADEO on 06-27-2022 RBC (Bld) [#/Vol] 3.76 10*6/uL 3.60-5.00 [facility] ABO/RH Typeon 06-26-2022 ABO and Rh group Nom (Bld) Blood group O Rh(D) positive Normal [facility] [place] [facility] Comment on above: Result Comment: PERF ORMED BY: [facility] [address] [place] [address] PATHOLOGIST MEDICINE ASSISTANT ROWDY KEY M.D. Complete Blood Count Auto Di ffon 06-26-2022 Basophils (Bld) [#/Vol] 0.1 10*3/uL Normal 0.0-0.2 [facility] [place] [facility] Comment on above: Result Comment: PERF ORMED BY: [place] [address] PATHOLOGIST MEDICINE ASSISTANT ROWDY KEY M.D. Performed By: #### R MT W RFX #### [facility] , #### CBC #### [facility] [address] [place] [address] Basophils/100 WBC (Bld) 0.5 % Normal . [facility] Comment on above: Performed By: #### R MT W RFX #### [facility] , #### CBC #### [place] [address] [place] Eosinophils (Bld) [#/Vol] 0.1 10*3/uL Normal 0.0-0.45 [facility] [place] [facility] Comment on above: Performed By: #### R MT W RFX #### [facility] , #### CBC #### [facility] [address] [place] [address] [place] Eosinophils/100 WBC (Bld) 0.7 % Normal . [facility] [place] [facility] Comment on above: Performed By: #### R MT W RFX #### [facility] , #### CBC #### [facility] [address] [place] [address] Erythrocyte distribution width (RBC) [Ratio] 13.6 % Normal 11.9-15.3 [facility] [place] [facility] Comment on above: Performed By: #### R MT W RFX #### [facility] , #### CBC #### [facility] [address] [place] [address] Hematocrit (Bld) [Volume fraction] 37.2 % Normal 34.0-46.4 [facility] [place] [facility] Comment on above: Performed By: #### R MT W RFX #### [facility] , #### CBC #### [facility] [address] [place] [address] Hemoglobin (Bld) [Mass/Vol] 12.5 g/dL Normal 11.8-15.4 [facility] [place] [facility] Comment on above: Performed By: #### R MT W RFX #### [facility] , #### CBC #### [address] Lymphocytes (Bld) [#/Vol] 1.8 10*3/uL Normal 1.00-4.8 [facility] [place] [facility] Comment on above: Performed By: #### R MT W RFX #### [facility] , #### CBC #### [address] Lymphocytes/100 WBC (Bld) 14.8 % Normal . [facility] [place] [facility] Comment on above: Performed By: #### R MT W RFX #### [facility] , #### CBC #### [address] MCH (RBC) [Entitic mass] 29.9 pg Normal 24.7-34.3 [facility] [place] [facility] Comment on above: Performed By: #### R MT W RFX #### [facility] , #### CBC #### [facility] [address] [place] [address] MCV (RBC) [Entitic vol] 89.0 fL Normal 80-100 [facility] Comment on above: Performed By: #### R MT W RFX #### [facility] , #### CBC #### [facility] [address] [place] [address] Mean Corpuscular HGB Conc 33.6 g/dL Normal 32.0-35.0 [facility] [place] [facility] Comment on above: Performed By: #### R MT W RFX #### [facility] , #### CBC #### [facility] [address] [place] [address] [place] Monocytes (Bld) [#/Vol] 0.9 10*3/uL High 0.0-0.8 [facility] [place] [facility] Comment on above: Performed By: #### R MT W RFX #### [facility] , #### CBC #### [facility] [address] [place] [address] [place] Monocytes/100 WBC (Bld) 7.8 % Normal . [facility] Comment on above: Performed By: #### R MT W RFX #### [facility] , #### CBC #### [facility] [address] [place] [address] Neutrophils (Bld) [#/Vol] 9.2 10*3/uL High 1.8-7.7 [facility] [place] [facility] Comment on above: Performed By: #### R MT W RFX #### [facility] , #### CBC #### [facility] [address] [place] [address] Neutrophils/100 WBC (Bld) 76.2 % Normal . [facility] [place] [facility] Comment on above: Performed By: #### R MT W RFX #### [facility] , #### CBC #### [facility] [address] [place] [address] [place] Nucleated RBC/100 WBC (Bld) [Ratio] 0.0 % Normal 0-0.5 [facility] [place] [facility] Comment on above: Performed By: #### R MT W RFX #### [facility] , #### CBC #### [facility] [address] [place] [address] Platelet mean volume (Bld) [Entitic vol] 7.9 fL Normal 6.3-10.7 [facility] [place] [facility] Comment on above: Performed By: #### R MT W RFX #### [facility] , #### CBC #### [facility] [address] [place] [address] Platelets (Bld) [#/Vol] 327 10*3/uL Normal 150-450 [facility] [place] [facility] Comment on above: Performed By: #### R MT W RFX #### [facility] , #### CBC #### [address] RBC (Bld) [#/Vol] 4.18 10*6/uL Normal 3.60-5.00 [facility] Comment on above: Performed By: #### R MT W RFX #### [facility] , #### CBC #### [address] WBC (Bld) [#/Vol] 12.0 10*3/uL High 4.5-11.0 [facility] Comment on above: Performed By: #### R MT W RFX #### [facility] , #### CBC #### [address] RPR w/rfx to Quant TP Abson 06-26-2022 RPR, Rfx Quant RPR Non-Reactive Normal Non Reactive [facility] Comment on above: Result Comment: Perf ormed at: CB - [facility] [address] [id number] Inside Sales Territory Manager: Herman Weston PhD, Phone: [phone] PERFORMED BY: [place] [address] PATHOLOGIST MEDICINE ASSISTANT ROWDY KEY M.D. Performed By: #### R MT W RFX #### [facility] , #### CBC #### [address] Amphetamine Screen Ql (U)Ord ered By: MARIAH TADEO on 06-25-2022 Amphetamines Ql (U) Negative Negative [facility] Automated erythrocytes count in urine sediment (number/area)Ordered By: MARIAH BARTHOLOMEWGERMÁN on 06-25-2022 RBC Auto (Urine sed) [#/Area] 0-1 [HPF] 0-4 [facility] [place] [facility] Automated leukocytes count i n urine sediment (number/area)Ordered By: MARIAH SLICK on 06-25-2022 WBC Auto (Urine sed) [#/Area] 3-4 [HPF] 0-4 [facility] [place] [facility] Barbiturates [Presence] in U rineOrdered By: MARIAHRowan BARTHOLOMEWAPRTHUY on 06-25-2022 Barbiturates Ql (U) Negative Negative [facility] Benzodiazepines [Presence] i n UrineOrdered By: MARIAHRowan TADEO on 06-25-2022 Benzodiazepines Ql (U) Negative Negative [facility] Bilirubin Test strip Ql (U)O rdered By: MARIAHRowan CARMICHAELDEWAYNE on 06-25-2022 Bilirubin Ql (U) Negative Negative [facility] COVID-19 Antigenon 2 COVID-19 Antigen Healthcare Worker?: [...] developed and its performance characteristic determined by [employer] and validated at [facility] [place] [facility]. This test has not been [...] for SARS Antigen by ANGELIC PERFORMED BY: [place] [address] PATHOLOGIST MEDICINE ASSISTANT ROWDY KEY M.D. Normal [facility] [place] [facility] Comment on above: Performed By: #### C OVID-19 SAMMI, SOFIANEG #### [address] COVID-19 SOFIAOrdered By: SHELLY TADEO on 06-25-2022 SARS-CoV+SARS-CoV-2 (COVID-19) Ag IA.rapid Ql (Resp) Negative Negative [facility] [place] [facility] Comment on above: This is a duplicate Sammi SARS Antigen (ANGELIC) result to be used for statistical tracking purpose only. Color Auto (U)Ordered By: SHELLY TADEO on 06-25-2022 Color (U) Yellow Yellow [facility] [place] [facility] Dipstick and Microscopicon 1 Appearance (U) Clear Normal Clear [facility] [place] [facility] Comment on above: Order Comment: Name Collection Type:: Voided Performed By: #### A DDONUAPLUS OBUDS #### [address] Bacteria,Urine None Seen Normal None Seen [facility] [place] [facility] Comment on above: Order Comment: Name Collection Type:: Voided Performed By: #### A KORYONUAPLUS OBUDS #### [address] Bilirubin,Urine Negative Normal Negative [facility] [place] [facility] Comment on above: Order Comment: Name Collection Type:: Voided Performed By: #### A DDONREINALDOPLUS OBUDS #### [address] [place] [address] [place] Color (U) Yellow Normal Yellow [facility] [place] [facility] Comment on above: Order Comment: Name Collection Type:: Voided Performed By: #### A DDONGUSTAVO OBUDS #### [place] [address] [place] Glucose Ql (U) Normal Normal Normal [facility] [place] [facility] Comment on above: Order Comment: Name Collection Type:: Voided Performed By: #### A DDONGUSTAVO OBUDS #### [place] [address] [place] Hyaline Casts,Urine 0-8 Normal 0-8 [facility] Comment on above: Order Comment: Name Collection Type:: Voided Result Comment: PERF ORMED BY: [place] [address] PATHOLOGIST MEDICINE ASSISTANT ROWDY KEY M.D. Performed By: #### A RADHA OBUDS #### [place] [address] [place] Ketones Ql (U) 1+ High Negative [facility] [place] [facility] Comment on above: Order Comment: Name Collection Type:: Voided Performed By: #### A RADHA OBUDS #### [place] [address] [place] Leukocyte esterase Test strip Ql (U) 1+ High Negative [facility] [place] [facility] Comment on above: Order Comment: Name Collection Type:: Voided Performed By: #### A RADHA OBUDS #### [place] [address] [place] Nitrite,Urine Negative Normal Negative [facility] [place] [facility] Comment on above: Order Comment: Name Collection Type:: Voided Performed By: #### A RADHA OBUDS #### [place] [address] [place] Occult Blood,Urine Negative Normal Negative [facility] Comment on above: Order Comment: Name Collection Type:: Voided Result Comment: PERF ORMED BY: [place] [address] PATHOLOGIST MEDICINE ASSISTANT ROWDY KEY M.D. Performed By: #### A DDRIVER OBUDS #### [address] pH (U) 6.5 [pH] Normal 5.0-9.0 [facility] [place] [facility] Comment on above: Order Comment: Name Collection Type:: Voided Performed By: #### A DDONUAPLUS OBUDS #### [address] Protein,Urine Negative Normal Negative [facility] [place] [facility] Comment on above: Order Comment: Name Collection Type:: Voided Performed By: #### A RIANUAPLUS OBUDS #### [address] RBC LM.HPF (Urine sed) [#/Area] 0 /[HPF] Normal 0-4 [facility] [place] [facility] Comment on above: Order Comment: Name Collection Type:: Voided Performed By: #### A DDONUAPLUS, OBUDS #### [address] Specificy [place],Urine 1.012 Normal 1.001-1.030 [facility] [place] [facility] Comment on above: Order Comment: Name Collection Type:: Voided Performed By: #### A DDONUAPLUS, OBUDS #### [address] Squamous Epithelial Cell,Urine 0-1 Normal 0-2 [facility] [place] [facility] Comment on above: Order Comment: Name Collection Type:: Voided Performed By: #### A DDONUAPLUS, OBUDS #### [address] Urobilinogen,Urine Normal Normal Normal [facility] Comment on above: Order Comment: Name Collection Type:: Voided Performed By: #### A DDONUAPLUS, OBUDS #### [address] WBC,Urine 3-4 Normal 0-4 [facility] [place] [facility] Comment on above: Order Comment: Name Collection Type:: Voided Performed By: #### A RADHA OBUDS #### [facility] [address] [place] [address] [place] Ketones Auto test strip (U) [Mass/Vol]Ordered By: MARIAH TADEO on 06-25-2022 Ketones (U) [Mass/Vol] 1+ Negative [facility] Laboratory - Drug toxicology Ordered By: MARIAH TADEO on 06-25-2022 Opiates Ql (U) Negative Negative [facility] [place] [facility] Laboratory - UrinalysisOrder ed By: MARIAH TADEO on 06-25-2022 Hyaline casts LM Ql (Urine sed) 0-8 [LPF] 0-8 [facility] [place] [facility] Nitrite Test strip Ql (U)Ord ered By: MARIAH TADEO on 06-25-2022 Nitrite Ql (U) Negative Negative [facility] [place] [facility] No Panel InformationOrdered By: MARIAH TADEO on 06-25-2022 SARS Antigen (LFIA) [facility] OB Urine Drug Screen (NO THC )on 06-25-2022 Amphetamine Screen,Urine Negative Normal Negative [facility] [place] [facility] Comment on above: Performed By: #### A RADHA OBUDS #### [facility] [address] [place] [address] [place] Barbiturate Screen,Urine Negative Normal Negative [facility] [place] [facility] Comment on above: Performed By: #### A RIANUALURDES OBUDS #### [facility] [address] [place] [address] [place] Benzodiazepines Screen,Urine Negative Normal Negative [facility] [place] [facility] Comment on above: Performed By: #### A DDONUAPLUS OBUDS #### [facility] [address] [place] [address] [place] Cocaine Screen,Urine Negative Normal Negative [facility] Comment on above: Performed By: #### A DDONUAPLUS OBUDS #### [facility] [address] [place] [address] [place] Opiate Screen,Urine Negative Normal Negative [facility] Comment on above: Performed By: #### A DDONUALURDES OBUDS #### [facility] [address] Phencyclidine Screen, Urine Negative Normal Negative [facility] [place] [facility] Comment on above: Result Comment: Thes e are unconfirmed results and should not be used for legal purposes. Drug Cut-Off Concentration: AMPH 1000 ng/mL DONALD 200 ng/mL CHIDI 200 ng/mL COCM 300 ng/mL OP 300 ng/mL PCP 25 ng/mL PERFORMED BY: [place] [address] PATHOLOGIST MEDICINE ASSISTANT ROWDY KEY M.D. Performed By: #### A DDONUAPLUS, OBUDS #### [facility] [address] [place] [address] Phencyclidine Screen Ql (U)O rdered By: MARIAH TADEO on 06-25-2022 Phencyclidine Ql (U) Negative Negative [facility] Comment on above: These are unconfirme d results and should not be used for legal purposes. Drug Cut-Off Concentration: AMPH 1000 ng/mL DONALD 200 ng/mL CHIDI 200 ng/mL COCM 300 ng/mL OP 300 ng/mL PCP 25 ng/mL Protein Auto test strip (U) [Mass/Vol]Ordered By: MARIAH TADEO on 06-25-2022 Protein (U) [Mass/Vol] Negative Negative [facility] Reagin Ab [Presence] in Seru m by RPROrdered By: MARIAH TADEO on 06-25-2022 Reagin Ab RPR Ql (S) Non-Reactive Non Reactive [facility] [place] [facility] Comment on above: Performed at: - [address] [id number] Director: Herman Weston PhD, Phone: [phone] Sammi Ag Negativeon 06-25-20 Sammi Ag Negative Negative Normal Negative [facility] Comment on above: Result Comment: This is a duplicate Sammi SARS Antigen (ANGELIC) result to be used for statistical tracking purpose only. PERFORMED BY: [place] [id number] PATHOLOGIST MEDICINE ASSISTANT ROWDY KEY M.D. Performed By: #### C OVID-19 SAMMI, SOFIANEG #### [facility] [address] Specific gravity Auto test s trip (U) [Rel density]Ordered By: MARIAH TADEO on 06-25-2022 Specific gravity (U) [Rel density] 1.012 1.001-1.030 [facility] [place] [facility] Squamous epithelial cells de tection in urine sediment by light microscopyOrdered By: MARIAH TADEO on 06-25-2022 Epithelial cells.squamous LM Ql (Urine sed) 0-1 [HPF] 0-2 [facility] [place] [facility] Urine bacteria detection by automated methodOrdered By: MARIAH TADEO on 06-25-2022 Bacteria Auto Ql (U) None seen None Seen [facility] Urine clarity by refractomet ry automatedOrdered By: MARIAH TADEO on 06-25-2022 Clarity Refractometry automated (U) Clear Clear [facility] [place] [facility] Urine cocaine detectionOrder ed By: MARIAH TADEO on 06-25-2022 Cocaine Ql (U) Negative Negative [facility] [place] [facility] Urine glucose measurement by automated test strip (mass/volume)Ordered By: MARIAH TADEO on 06-25-2022 Glucose Auto test strip (U) [Mass/Vol] Normal mg/dL Normal [facility] [place] [facility] Urine hemoglobin detection b y automated test stripOrdered By: MARIAH TADEO on 06-25-2022 Hemoglobin Auto test strip Ql (U) Negative Negative [facility] [place] [facility] Urine leukocyte esterase det ection by automated test stripOrdered By: MARIAH TADEO on 06-25-2022 Leukocyte esterase Auto test strip Ql (U) 1+ Negative [facility] [place] [facility] Urobilinogen Auto test strip (U) [Mass/Vol]Ordered By: MARIAH TADEO on 06-25-2022 Urobilinogen (U) [Mass/Vol] Normal mg/dL Normal [facility] [place] [facility] pH Auto test strip (U)Ordere d By: MARIAH TADEO on 06-25-2022 pH (U) 6.5 [pH] 5.0-9.0 [facility] [place] [facility] Amphetamine Screen Ql (U)Ord ered By: MARIAH TADEO on 06-12-2022 Amphetamines Ql (U) Negative Negative [facility] Automated erythrocytes count in urine sediment (number/area)Ordered By: MARIAH TADEO on 06-12-2022 RBC Auto (Urine sed) [#/Area] None seen [HPF] 0-4 [facility] [place] [facility] Automated leukocytes count i n urine sediment (number/area)Ordered By: MARIAH TADEO on 06-12-2022 WBC Auto (Urine sed) [#/Area] 1-2 [HPF] 0-4 [facility] [place] [facility] Automated urine color determ inationOrdered By: MARIAH TADEO on 06-12-2022 Color (U) Yellow Normal Yellow [facility] [place] [facility] Comment on above: Order Comment: Name Collection Type:: Clean-Voided Midstream Performed By: #### O BUDS, ADDONUAPLUS #### [facility] [address] [place] [address] [place] Barbiturates [Presence] in U rineOrdered By: MARIAH TADEO on 06-12-2022 Barbiturates Ql (U) Negative Negative [facility] Benzodiazepines [Presence] i n UrineOrdered By: MARIAH TADEO on 06-12-2022 Benzodiazepines Ql (U) Negative Negative [facility] Bilirubin Test strip Ql (U)O rdered By: MARIAH TADEO on 06-12-2022 Bilirubin Ql (U) Negative Negative [facility] Dipstick and Microscopicon 1 Appearance (U) Cloudy Critically abnormal Clear [facility] [place] [facility] Comment on above: Order Comment: Name Collection Type:: Clean-Voided Midstream Performed By: #### O BUDS, ADDONUAPLUS #### [facility] [address] [place] [id number] [place] Bacteria,Urine None Seen Normal None Seen [facility] [place] [facility] Comment on above: Order Comment: Name Collection Type:: Clean-Voided Midstream Performed By: #### O BUDS, ADDONUAPLUS #### [facility] [address] [place] [id number] [place] Bilirubin,Urine Negative Normal Negative [facility] [place] [facility] Comment on above: Order Comment: Name Collection Type:: Clean-Voided Midstream Performed By: #### O BUDS, ADDONUAPLUS #### [facility] [address] [place] [address] Glucose Ql (U) Normal Normal Normal [facility] [place] [facility] Comment on above: Order Comment: Name Collection Type:: Clean-Voided Midstream Performed By: #### O BUDS, ADDONUAPLUS #### [facility] [address] [place] [address] [place] Hyaline Casts,Urine 0-8 Normal 0-8 [facility] Comment on above: Order Comment: Name Collection Type:: Clean-Voided Midstream Result Comment: PERF ORMED BY: [place] [address] PATHOLOGIST MEDICINE ASSISTANT ROWDY KEY M.D. Performed By: #### O BUDS, ADDONUAPLUS #### [place] [address] [place] Ketones Ql (U) Negative Normal Negative [facility] [place] [facility] Comment on above: Order Comment: Name Collection Type:: Clean-Voided Midstream Performed By: #### O BUDS, ADDONUAPLUS #### [place] [address] [place] Leukocyte esterase Test strip Ql (U) Negative Normal Negative [facility] [place] [facility] Comment on above: Order Comment: Name Collection Type:: Clean-Voided Midstream Performed By: #### O BUDS, ADDONUAPLUS #### [place] [address] [place] Nitrite,Urine Negative Normal Negative [facility] [place] [facility] Comment on above: Order Comment: Name Collection Type:: Clean-Voided Midstream Performed By: #### O BUDS, ADDONUAPLUS #### [place] [address] [place] Occult Blood,Urine Negative Normal Negative [facility] Comment on above: Order Comment: Name Collection Type:: Clean-Voided Midstream Result Comment: PERF ORMED BY: [place] [address] PATHOLOGIST MEDICINE ASSISTANT ROWDY KYE M.D. Performed By: #### O BUDS, ADDONUAPLUS #### [place] [address] [place] Protein,Urine Negative Normal Negative [facility] [place] [facility] Comment on above: Order Comment: Name Collection Type:: Clean-Voided Midstream Performed By: #### O BUDS, ADDONUAPLUS #### [place] [address] [place] RBC,Urine None Seen Normal 0-4 [facility] [place] [facility] Comment on above: Order Comment: Name Collection Type:: Clean-Voided Midstream Performed By: #### O BUDS, ADDONUAPLUS #### [address] Specificy [place],Urine 1.008 Normal 1.001-1.030 [facility] [place] [facility] Comment on above: Order Comment: Name Collection Type:: Clean-Voided Midstream Performed By: #### O BUDS, ADDONUAPLUS #### [address] Squamous Epithelial Cell,Urine 0-1 Normal 0-2 [facility] [place] [facility] Comment on above: Order Comment: Name Collection Type:: Clean-Voided Midstream Performed By: #### O BUDS, ADDONUAPLUS #### [address] Urobilinogen,Urine Normal Normal Normal [facility] Comment on above: Order Comment: Name Collection Type:: Clean-Voided Midstream Performed By: #### O BUDS, ADDONUAPLUS #### [place] [address] [place] WBC,Urine 1-2 Normal 0-4 [facility] [place] [facility] Comment on above: Order Comment: Name Collection Type:: Clean-Voided Midstream Performed By: #### O BUDS, ADDONUAPLUS #### [address] Ketones Auto test strip (U) [Mass/Vol]Ordered By: MARIAH TADEO on 06-12-2022 Ketones (U) [Mass/Vol] Negative Negative [facility] - Drug toxicology Ordered By: MARIAH TADEO on 06-12-2022 Opiates Ql (U) Negative Negative [facility] [place] [facility] Laboratory - UrinalysisOrder ed By: MARIAH TADEO on 06-12-2022 Hyaline casts LM Ql (Urine sed) 0-8 [LPF] 0-8 [facility] [place] [facility] Nitrite Test strip Ql (U)Ord ered By: MARIAH TADEO on 06-12-2022 Nitrite Ql (U) Negative Negative [facility] [place] [facility] OB Urine Drug Screen (NO THC )on 06-12-2022 Amphetamine Screen,Urine Negative Normal Negative [facility] [place] [facility] Comment on above: Performed By: #### C OVID-19 SAMMI, SOFIANEG #### [facility] [address] [place] [address] Barbiturate Screen,Urine Negative Normal Negative [facility] [place] [facility] Comment on above: Performed By: #### C OVID-19 SAMMI, SOFIANEG #### [facility] [address] [place] [address] [place] Benzodiazepines Screen,Urine Negative Normal Negative [facility] [place] [facility] Comment on above: Performed By: #### C OVID-19 SAMMI, SOFIANEG #### [facility] [facility] [address] [place] [address] [place] Cocaine Screen,Urine Negative Normal Negative [facility] Comment on above: Performed By: #### C OVID-19 SAMMI, SOFIANEG #### [facility] [address] [place] [address] [place] Opiate Screen,Urine Negative Normal Negative [facility] Comment on above: Performed By: #### C OVID-19 SAMMI, SOFIANEG #### [facility] [address] [place] [address] [place] Phencyclidine Screen, Urine Negative Normal Negative [facility] [place] [facility] Comment on above: Result Comment: Thes e are unconfirmed results and should not be used for legal purposes. Drug Cut-Off Concentration: AMPH 1000 ng/mL DONALD 200 ng/mL CHIDI 200 ng/mL COCM 300 ng/mL OP 300 ng/mL PCP 25 ng/mL PERFORMED BY: [facility] [address] PATHOLOGIST MEDICINE ASSISTANT ROWDY KEY M.D. Performed By: #### C OVID-19 SYLVAIN CHAPA #### [address] Phencyclidine Screen Ql (U)O rdered By: MARIAH TADEO on 06-12-2022 Phencyclidine Ql (U) Negative Negative [facility] Comment on above: These are unconfirme d results and should not be used for legal purposes. Drug Cut-Off Concentration: AMPH 1000 ng/mL DONALD 200 ng/mL CHIDI 200 ng/mL COCM 300 ng/mL OP 300 ng/mL PCP 25 ng/mL Protein Auto test strip (U) [Mass/Vol]Ordered By: MARIAH TADEO on 06-12-2022 Protein (U) [Mass/Vol] Negative Negative [facility] Specific gravity Auto test s trip (U) [Rel density]Ordered By: MARIAH TADEO on 06-12-2022 Specific gravity (U) [Rel density] 1.008 1.001-1.030 [facility] [place] [facility] Squamous epithelial cells de tection in urine sediment by light microscopyOrdered By: MARIAH TADEO on 06-12-2022 Epithelial cells.squamous LM Ql (Urine sed) 0-1 [HPF] 0-2 [facility] [place] [facility] Urine bacteria detection by automated methodOrdered By: MARIAH TADEO on 06-12-2022 Bacteria Auto Ql (U) None seen None Seen [facility] Urine clarity by refractomet ry automatedOrdered By: MARIAH TADEO on 06-12-2022 Clarity Refractometry automated (U) Cloudy Clear [facility] [place] [facility] Urine cocaine detectionOrder ed By: MARIAH TADEO on 06-12-2022 Cocaine Ql (U) Negative Negative [facility] [place] [facility] Urine glucose measurement by automated test strip (mass/volume)Ordered By: MARIAH TADEO on 06-12-2022 Glucose Auto test strip (U) [Mass/Vol] Normal mg/dL Normal [facility] [place] [facility] Urine hemoglobin detection b y automated test stripOrdered By: MARIAH TADEO on 06-12-2022 Hemoglobin Auto test strip Ql (U) Negative Negative [facility] [place] [facility] Urine leukocyte esterase det ection by automated test stripOrdered By: MARIAH TADEO on 06-12-2022 Leukocyte esterase Auto test strip Ql (U) Negative Negative [facility] [place] [facility] Urine pH measurement by auto mated test stripOrdered By: MARIAH TADEO on 06-12-2022 pH (U) 7.0 [pH] Normal 5.0-9.0 [facility] [place] [facility] Comment on above: Order Comment: Name Collection Type:: Clean-Voided Midstream Performed By: #### O BUDS, ADDONUAPLUS #### [facility] [address] [place] [address] Urobilinogen Auto test strip (U) [Mass/Vol]Ordered By: MARIAH TADEO on 06-12-2022 Urobilinogen (U) [Mass/Vol] Normal mg/dL Normal [facility] [place] [facility] S. agalactiae Org specific c x Ql (Unsp spec)Ordered By: MARIAH TADEO on 06-07-2022 Streptococcus agalactiae culture No Group B Beta Streptococcus Isolated 3 Days [facility] [place] [facility] Strep B Cultureon 06-03-2022 Strep B Culture Reason for Exam 36 weeks gestation of ; screening for stre Vaginal/Rectal Reason for Exam: 36 weeks gestation of ; screening for stre : Vaginal/Rectal No Group B Beta Streptococcus Isolated 3 Days PERFORMED BY: [place] [address] PATHOLOGIST MEDICINE ASSISTANT ROWDY KEY M.D. [facility] Comment on above: Performed By: #### C USTB #### [facility] [address] [place] [address] Vital Signs Date Time Vital Sign Value Performing Clinician Lashauni quincy 08-06-2024 10:10-0500 Blood Pressure Location SHAMEKA CHEN [facility] 08-06-2024 10:10-0500 Body temperature 98.6 [degF] SHAMEKA CHEN [facility] 08-06-2024 10:10-0500 Diastolic blood pressure 60 mm[Hg] [place] CHEN [facility] 08-06-2024 10:10-0500 [facility] 95 [facility] 08-06-2024 10:10-0500 SaO2% (BldA) [Mass fraction] 99 % [facility] 08-06-2024 10:10-0500 Systolic blood pressure 120 mm[Hg] [facility] 08-03-2024 10:38-0500 Body mass index (BMI) [Ratio] 32.59 kg/m2 Marly Odell INSULATION BOARD BACK TENDER Work Phone: [facility] 08-03-2024 10:38-0500 Body weight 92.99 kg Marly Odell INSULATION BOARD BACK TENDER Work Phone: [facility] 08-03-2024 10:38-0500 Diastolic blood pressure 84 mm[Hg] Marly Odell INSULATION BOARD BACK TENDER Work Phone: [facility] 08-03-2024 10:38-0500 Systolic blood pressure 126 mm[Hg] Marly Odell INSULATION BOARD BACK TENDER Work Phone: [facility] 07-24-2024 09:58-0500 Blood Pressure Location Rosa Elena Forman [facility] 07-24-2024 09:58-0500 Body temperature 97.52 [degF] Rosa Elena Forman [facility] 07-24-2024 09:58-0500 Diastolic blood pressure 80 mm[Hg] Rosa Elena Forman [facility] 07-24-2024 09:58-0500 Heart rate 89 /min Rosa Elena Forman [facility] 07-24-2024 09:58-0500 SaO2% (BldA) [Mass fraction] 96 % Rosa Elena Engelcorbyruma [facility] 07-24-2024 09:58-0500 Systolic blood pressure 122 mm[Hg] Rosa Elena Forman [facility] 07-06-2024 16:19-0400 Body mass index (BMI) [Ratio] 34.02 kg/m2 Mariah Nataprawira DO Work Phone: [facility] 07-06-2024 16:19-0400 Body weight 97.07 kg Mariah Nataprawira DO Work Phone: [facility] 07-06-2024 16:19-0400 Diastolic blood pressure 80 mm[Hg] Mariah Nataprawira DO Work Phone: [facility] 07-06-2024 16:19-0400 Systolic blood pressure 126 mm[Hg] Mariah Nataprawira DO Work Phone: [facility] 06-08-2024 15:44-0400 Body mass index (BMI) [Ratio] 33.55 kg/m2 Marly Odell INSULATION BOARD BACK TENDER Work Phone: [facility] 06-08-2024 15:44-0400 Body weight 95.71 kg Marly Odell INSULATION BOARD BACK TENDER Work Phone: [facility] 06-08-2024 15:44-0400 Diastolic blood pressure 78 mm[Hg] Marly Odell INSULATION BOARD BACK TENDER Work Phone: [facility] 06-08-2024 15:44-0400 Systolic blood pressure 128 mm[Hg] Marly Odell INSULATION BOARD BACK TENDER Work Phone: [facility] 12-04-2023 10:20-0400 Blood Pressure Location SHAMEKA CHEN [facility] 12-04-2023 10:20-0400 Body temperature 98.24 [degF] SHAMEKA CHEN [facility] 12-04-2023 10:20-0400 Diastolic blood pressure 70 mm[Hg] SHAMEKA PEREIRATIZ [facility] 12-04-2023 10:20-0400 Heart rate 75 /min SHAMEKA CHEN [facility] 12-04-2023 10:20-0400 SaO2% (BldA) [Mass fraction] 98 % SHAMEKA PEREIRATIZ [facility] 12-04-2023 10:20-0400 Systolic blood pressure 110 mm[Hg] [place] CHEN [facility] 03-21-2023 11:34-0400 Blood Pressure Location Erin Orzech [facility] 03-21-2023 11:34-0400 Body temperature 97.7 [degF] Erin Orzech [facility] 03-21-2023 11:34-0400 Diastolic blood pressure 72 mm[Hg] Erin Orzech [facility] 03-21-2023 11:34-0400 Heart rate 71 /min Erin Orzech [facility] 03-21-2023 11:34-0400 SaO2% (BldA) [Mass fraction] 97 % Erin Orzech [facility] 03-21-2023 11:34-0400 Systolic blood pressure 120 mm[Hg] Erin Orzech [facility] 06-28-2022 07:30-0400 Body temperature 98 [degF] PHYSICIAN NO [facility] 06-28-2022 07:30-0400 Diastolic blood pressure 81 mm[Hg] PHYSICIAN NO [facility] 06-28-2022 07:30-0400 Heart rate 70 /min PHYSICIAN NO [facility] 06-28-2022 07:30-0400 Respiratory rate 16 /min PHYSICIAN NO [facility] 06-28-2022 07:30-0400 SaO2% (BldA) [Mass fraction] 96 % PHYSICIAN NO [facility] 06-28-2022 07:30-0400 Systolic blood pressure 125 mm[Hg] PHYSICIAN NO [facility] 06-25-2022 22:02-0400 Body height 167.64 cm PHYSICIAN NO [facility] 06-25-2022 22:02-0400 Body weight 102.51 kg PHYSICIAN NO [facility] 06-12-2022 13:00-0400 Respiratory rate 20 /min PHYSICIAN NO [facility] 06-12-2022 12:49-0400 Body temperature 97 [degF] PHYSICIAN NO [facility] 06-12-2022 12:49-0400 Diastolic blood pressure 81 mm[Hg] PHYSICIAN NO [facility] 06-12-2022 12:49-0400 Heart rate 82 /min PHYSICIAN NO [facility] 06-12-2022 12:49-0400 SaO2% (BldA) [Mass fraction] 96 % PHYSICIAN NO [facility] 06-12-2022 12:49-0400 Systolic blood pressure 122 mm[Hg] PHYSICIAN NO [facility] 06-12-2022 11:37-0400 Body height 170.18 cm PHYSICIAN NO [facility] 06-12-2022 11:37-0400 Body weight 101.15 kg PHYSICIAN NO [facility] Encounters Encounter Date Encounter Type Care Provider Facility Start: 08-17-2024 End: 08-17-2024 ambulatory [facility] Start: 08-06-2024 End: 08-06-2024 ambulatory [facility] Facility:[facility] Start: 08-06-2024 End: 08-06-2024 Patient encounter procedure SHAMEKA CHEN [facility] Start: 08-05-2024 End: 08-06-2024 Clinisync Result Encounter Marly Odell INSULATION BOARD BACK TENDER Work Phone: [facility] Unsolicited Start: 08-05-2024 End: 08-06-2024 Clinisync Result Encounter Marly Kulkarniman INSULATION BOARD BACK TENDER Work Phone: [facility] Unsolicited Start: 08-03-2024 End: 08-03-2024 Bamboo flowsheet Marly Kulkarniman INSULATION BOARD BACK TENDER Work Phone: [facility] Start: 08-03-2024 End: 08-03-2024 Bamboo flowsheet Marly Kulkarniman INSULATION BOARD BACK TENDER Work Phone: [facility] Start: 08-03-2024 End: 08-03-2024 flow sheet Marly F Nicolette INSULATION BOARD BACK TENDER Work Phone: [facility] Comment on above: related co ndition in third trimester (Primary Dx); 28 weeks gestation of ; Other obesity due to excess calories affecting in third trimester; Other pruritus Start: 08-03-2024 End: 08-03-2024 ambulatory MARLY F ODELL Not Available Start: 07-24-2024 End: 07-24-2024 ambulatory Rosa Elena Forman Facility:[facility] Start: 07-24-2024 End: 07-24-2024 Patient encounter procedure Rosa Elena Forman [facility] Start: 07-06-2024 End: 07-06-2024 flow sheet Mariah Tadeo DO Work Phone: [facility] Comment on above: related co ndition, second trimester (Primary Dx); 24 weeks gestation of ; Screening for diabetes mellitus; Other obesity due to excess calories affecting in second trimester Start: 07-06-2024 End: 07-06-2024 ambulatory MARIAH TADEO Not Available Start: 07-06-2024 End: 07-06-2024 Bamboo flowsheet Mariah Tadeo DO Work Phone: [facility] Start: 07-06-2024 End: 07-06-2024 Bamboo flowsheet Mariah Tadeo DO Work Phone: [facility] Start: 06-08-2024 End: 06-08-2024 flow sheet Marlyselene Odell INSULATION BOARD BACK TENDER Work Phone: [facility] Comment on [...] Start: 12-04-2023 End: 12-04-2023 ambulatory SHAMEKA CHEN Facility:[facility] Start: 12-04-2023 End: 12-04-2023 Patient encounter procedure SHAMEKA CHEN [facility] Start: 03-21-2023 End: 03-21-2023 Patient encounter procedure Erin Holman [facility] Start: 06-25-2022 End: 06-28-2022 Evaluation and management of inpatient Mariah Tadeo Facility:[facility] [place] [facility] Start: 06-25-2022 End: 06-28-2022 Evaluation and management of inpatient PHYSICIAN JOSE [facility] Post Start: 06-12-2022 End: 06-12-2022 ambulatory Mariah Carmichaeldewayne Facility:[facility] [place] [facility] Start: 06-12-2022 End: 06-12-2022 ambulatory PHYSICIAN NO [facility] Work Phone: Start: 06-12-2022 End: 06-12-2022 Patient encounter procedure PHYSICIAN NO [facility] East Labor - O/P Start: 06-03-2022 End: 06-03-2022 ambulatory Mariah Tadeo Facility:[facility] [place] [facility] Start: 06-03-2022 End: 06-03-2022 Departed Referred PHYSICIAN NO [facility]-Lab Main [place] Procedures Date Procedure Procedure Detail Performing Clinician Start: 08-05-2024 [facility] BILE ACIDS FRACT BLD Marly Odell INSULATION BOARD BACK TENDER Work Phone: Start: 08-03-2024 Urnls dip stick/tabl et rgnt non-auto w/o micrscp Marly Odell INSULATION BOARD BACK TENDER Work Phone: Start: 07-06-2024 Urnls dip stick/tabl et rgnt non-auto w/o micrscp Mariah Bartholomewaprawira DO Work Phone: Start: 06-08-2024 Urnls dip stick/tabl et rgnt non-auto w/o micrscp Mariah Ej Nataprawira DO Work Phone: stefanie Erin Espinozanatalie SARS Antigen (LFIA) PHYSICIA N NO FAMILY Streptococcus agalac tiae culture PHYSICIAN NO FAMILY Plan of Treatment Date Care Activity Detail Author Start: 08-25-2024 End: 08-25-2024 Patient encounter procedure 08/25/2024 3:45 PM EST Routine [facility] [address] JUAN CARLOS D [address] [address] Mariah Tadeo, DO [address] [address] [facility] Start: 08-25-2024 End: 08-25-2024 Professional / ancillary services management 08/25/2024 3:00 PM EST Ancillary Procedure [facility] [address] JUAN CARLOS D [address] [address] [facility] Start: 08-03-2024 End: 08-03-2025 Bile acids, total Bile acids, total Lab Routine related condition in third trimester Other pruritus Expected: 08/03/2024 (Approximate), Expires: 08/03/2025 [facility] Work Phone: Comment on above: Expected: 08/03/2024 (Approximate), Expires: 08/03/2025 Start: 08-03-2024 End: 08-03-2024 Patient encounter procedure [facility] Comment on above: related co ndition in third trimester (Primary Dx); 28 weeks gestation of ; Other obesity due to excess calories affecting in third trimester Start: 07-06-2024 End: 07-06-2024 Patient encounter procedure 07/06/2024 3:45 PM EDT Routine [facility] [address] [facility] D [address] [address] Mariah Tadeo DO [address] [address] related condition, second trimester (Primary Dx); 24 weeks gestation of ; Screening for diabetes mellitus [facility] Comment on above: related co ndition, second trimester (Primary Dx); 24 weeks gestation of ; Screening for diabetes mellitus Start: 05-08-2024 Influenza vaccination Influenza Vacc ine (#1) [facility] Start: 06-28-2022 [facility] [place] [facility] Start: 06-25-2022 Hospital admission [facility] Start: 06-12-2022 [facility] [place] [facility] Start: 06-12-2022 Hospital admission [facility] Hemoglobin [Mass/vol ume] in Blood Hemoglobin and hematocrit, blood Lab Routine Screening for diabetes mellitus Ordered: 06/29/2024 [facility] Work Phone: Comment on above: Ordered: 06/29/2024 Measurement of gluco se 1 hour after glucose challenge for glucose tolerance test Glucose tolerance, 1 hour Lab Routine Screening for diabetes mellitus Ordered: 06/29/2024 [facility] Comment on above: Ordered: 06/29/2024 Patient Education [facility] Work Phone: Patient referral [facility] Work Phone: Immunizations Immunization Date Immunization Notes Care Provider Fa ena NEGATED: Highlighted row has not occurred!12-04-2023 influenza virus vaccine, unspecified formulation SHAMEKA CHEN [facility] NEGATED: Highlighted row has not occurred!12-04-2023 SARS-CoV-2 mRNA (tozinameran 5y-11y) vaccine [facility] NEGATED: Highlighted row has not occurred!03-21-2023 SARS-CoV-2 mRNA (tozinameran 5y-11y) vaccine Erin [employer] [facility] NEGATED: Highlighted row has not occurred!06-28-2022 tetanus toxoid, reduced diphtheria toxoid, and acellular pertussis vaccine, adsorbed PHYSICIAN NO FAMILY [facility] [place] [facility] NEGATED: Highlighted row has not occurred!09-30-2019 influenza virus vaccine, live, attenuated, for intranasal use Erin [employer] [facility] Comment on above: Result Comment: we d on't offer at this clinic Payers Date Payer Category [facility] [id number] 2022 Unknown [id number] 2022 Unknown [id number] 2022 Self-pay 2022 Private Health Insurance [employer] [id number] 2022 Unknown [id number]. [id number] 2022 Unknown [id number] 2016 Unknown [id number] 1997 Unknown [id number] 2.16.840.1.225133.3.579.2. 9 1997 Unknown [id number] 2.16.840.1.257393.3.579.2. 1258 1997 Unknown [id number] 2.16.840.1.066764.3.579.2. 9 1997 Unknown [id number] 2.16.840.1.761762.3.579.2. 9 1997 Unknown [id number] 2.16.840.1.378752.3.579.2. 1259 1997 Unknown [id number] 2.16.840.1.523956.3.579.2. 1259 1997 Unknown [id number] 2.16.840.1.311241.3.579.2. 1259 1997 Unknown [id number] 2.16.840.1.401027.3.579.2. 1259 1997 Unknown [id number] 2.16.840.1.577036.3.579.2. 727 1997 Unknown [id number] 2.16.840.1.944583.3.579.2. 727 1997 Unknown [id number] 2.16.840.1.277019.3.579.2. 727 1997 Unknown [id number] 2.16.840.1.928219.3.579.2. 727 1997 Unknown [id number] 2.16.840.1.941028.3.579.2. 479 1997 Unknown [id number] 2.16.840.1.101291.3.579.2. 479 Unknown [id number] 2.16.840.1.747535.3.579.2. 531 Unknown [id number] 2.16.840.1.912699.3.579.2. 531 Unknown [id number] 2.16.840.1.534510.3.579.2. 531 Social History Date Type Detail Facility Tobacco smoking stat us RUST Unknown if ever smoked [facility] Work Phone: Start: 1995 Sex Assigned At Female [facility] Start: 06-25-2022 End: 12-04-2023 Tobacco smoking status GAIS Never smoked tobacco (finding) [facility] [place] [facility] Tobacco smoking status Never [facility] Start: 03-01-2024 End: 04-12-2024 Sex Assigned At Female [facility] Start: 02-24-2023 Tobacco use and exposure Smoke less tobacco non-user [facility] Start: 04-12-2024 Alcoholic beverage intake Ex-drinker (finding) [facility] Start: 03-01-2024 End: 04-12-2024 History of Social function [facility] Within the last year , have you been afraid of your partner or ex-partner? No [facility] Do you belong to any clubs or organizations such as yazdanism groups, [employer], Partly or athletic groups, or school groups? Yes [...] Sex assigned at Not on file [facility] Goals Date Patient Goal Desired Activity /State Functional Status Date Assessment Result Facility 12-04-2023 Functional [facility] N[facility]A [facility] 03-21-2023 Functional Status N/A [facility] 06-28-2022 Functional status Patient at Baseline [facility] Work Phone: Mental Status Date Assessment Result Facility 06-28-2022 Cognitive function Cognitive Sta tus Patient at Baseline [facility] Work Phone: Clinical Notes 06-26-2022 to 08-17-2024 Marly Odell NP - 08/03/2024 10:40 AM Edenilson Pruitt MA - 07/06/2024 3:45 PM Ed Tadeo DO - 07/06/2024 3:45 PM Estrellita Odell NP - 06/08/2024 3:30 PM EDT Note Date & Type Note Facility 08-17-2024 [facility] Referring Provider Marly Odell, LABORER [employer]ING-ENTRY LEVEL AUTOMOTIVE TECHNICIAN [address] [facility] [address] [place] [address] ASSESSMENT AND RECOMMENDATIONS ICP The patient was seen today for discussion of cholestasis. Briefly, intrahepatic cholestasis of (ICP) is a condition characterized by maternal pruritus and abnormal liver function. It is considered a diagnosis of exclusion, but is suspected when women present with intense pruritus in the setting of either elevated bile acids and/or transaminases. A bile acid level >10 micromol/L is the most specific test for ICP, but elevated AST/ALT may precede this finding. She does have these findings on laboratory evaluation prior to coming today. Unfortunately, the exact causative mechanism for ICP is not known. There is some associated with increased maternal and complications. Recent studies suggest that women with ICP have an increased risk of gestational diabetes and preeclampsia. Women with ICP may also have an increased risk of future hepatobiliary disease. Pregnancies complicated by cholestasis also are associated with an increased risk of , meconium stained amniotic fluid, respiratory distress syndrome and . There is likely a correlation between bile acid level and the risk of adverse outcomes. Elevated bile acid levels have been associated with a higher risk of stillbirth. Those at highest risk include elevated > 100 mmol/L, though there is some elevated over baseline for values greater than >40 micomol/L. Though in the setting of ICP is thought to be a sudden event, testing with twice weekly NSTs should be initiated following the diagnosis. The patient should also be scheduled for serial growth ultrasounds. Ursodeoxycholic acid is the most effective treatment for ICP. It has been shown to significantly improve maternal pruritus and may lead to an improvement in laboratory tests. Some experts suggest that Ursodeoxycholic acid may also improve outcomes, but this has not yet been definitively proven. Regardless, all women with ICP should be start on Ursodeoxycholic acid with a starting dose of 10-15 mg/kg/day divided into BID dosing. This therapy has already been initiated, though she has been on the medication for approximately 1 day. She is aware this dose can be increased if it is not effective at controlling her symptoms. I have discussed with the patient that her liver function tests are uknown. I would like for those to be tested and have ordered that for today.. Laboratory testing of bile acids and LFTs should be performed at her visit to ensure that she does not have persistent liver disease. FGR Unfortunately, her ultrasound today is consistent with a new diagnosis of growth restriction. We did discuss the diagnosis and potential etiologies, noting that she does have risk factors. First, maternal causes, we reviewed include autoimmunes processes, hypertension, and diabetes among others. It is not possible to have an exhaustive list of maternal causes. We additionally, we discussed the association between growth restriction and pre-eclampsia, and pre-eclampsia precautions were reviewed. She does not have these diagnoses today. causes were discussed, including genetic anomalies and congenital infections. We reviewed that outside of growth restriction, the fetus is not demonstrating any other findings consistent with genetic anomalies or congenital infections. We did review the limitations of ultrasound, and that even multiple ultrasounds over a single will not demonstrate all anomalies. The patient has not had prior aneuploidy screening in this and this was offered today. I did discuss with her that she continues to have the option for either screening or diagnostic genetic testing. The patient did not opt for amniocentesis today. She is going to consider whether she would like non-invasive testing. Cell-free DNA is not a diagnostic test, but it has high sensitivity and specificity for the most common aneuploidies. A negative cell free DNA does not ensure an unaffected . Finally, placental insufficiency is both a frequent primary cause and a final common pathway from another primary etiology. We reviewed her umbilical artery Doppler screening. We reviewed the increased risk of stillbirth and the resultant importance of surveillance in this . Overall Recommendations: Aneuploidy screening - has been offered; patient is considering. Growth -- every 4 weeks and Delivery Considerations ANFS: weekly umbilical artery testing at this time. We will otherwise plan for twice weekly testing, alternating non-stress testing (or BPP) and biophysical profile with Doppler assessment of the umbilical artery. Pl (more content not included)... [facility] 08-08-2024 Note Patient Education Infectious Disease Community-Acquired Pneumonia, Adult Pneumonia is an infection of the lungs. It causes irritation and swelling in the airways of the lungs. Mucus and fluid may also build up inside the airways. This may cause coughing and trouble breathing. One type of pneumonia can happen while you are in a hospital. A different type can happen when you are not in a hospital (community-acquired pneumonia). What are the causes? This condition is caused by germs (viruses, bacteria, or fungi). Some types of germs can spread from person to person. Pneumonia is not thought to spread from person to person. What increases the risk? You have a long-term (chronic) disease, such as: ? Disease of the lungs. This may be chronic obstructive pulmonary disease (COPD) or asthma. ? Heart failure. ? Cystic fibrosis. ? Diabetes. ? Kidney disease. ? Sickle cell disease. ? HIV. ??? You have other health problems, such as: ? Your body's defense system (immune system) is weak. ? A condition that may cause you to breathe in fluids from your mouth and nose. ??? You had your spleen taken out. ??? You do not take good care of your teeth and mouth (poor dental hygiene). ??? You use or have used tobacco products. ??? You go where the germs that cause this illness are common. ??? You are older than 65 years of age. What are the signs or symptoms? A cough. ??? A fever. ??? Sweating or chills. ??? Chest pain, often when you breathe deeply or cough. ??? Breathing problems, such as: ? Fast breathing. ? Trouble breathing. ? Shortness of breath. ??? Feeling tired (fatigued). ??? Muscle aches. How is this treated? Treatment for this condition depends on many things, such as: ??? The cause of your illness. ??? Your medicines. ??? Your other health problems. Most adults can be treated at home. Sometimes, treatment must happen in a hospital. ??? Treatment may include medicines to kill germs. ??? Medicines may depend on which germ caused your illness. Very bad pneumonia is rare. If you get it, you may: ??? Have a machine to help you breathe. ??? Have fluid taken away from around your lungs. Follow these instructions at home: Medicines ??? Take eoyl-dms-yedjpku and prescription medicines only as told by your doctor. ??? Take cough medicine only if you are losing sleep. Cough medicine can keep your body from taking mucus away from your lungs. ??? If you were prescribed antibiotics, take them as told by your doctor. Do not stop taking them even if you start to feel better. Lifestyle ??? Do not smoke or use any products that contain nicotine or tobacco. If you need help quitting, ask your doctor. ??? Do not drink alcohol. ??? Eat a healthy diet. This includes a lot of vegetables, fruits, whole grains, low-fat dairy products, and low-fat (lean) protein. General instructions ??? Rest a lot. Sleep for at least 8 hours each night. ??? Sleep with your head and neck raised. Put a few pillows under your head or sleep in a reclining chair. ??? Return to your normal activities as told by your doctor. Ask your doctor what activities are safe for you. ??? Drink enough fluid to keep your pee (urine) pale yellow. ??? If your throat is sore, gargle with a mixture of salt and water 3?4 times a day or as needed. To make salt water, completely dissolve ??1 tsp (3?6 g) of salt in 1 cup (237 mL) of warm water. ??? Keep all follow-up visits. How is this prevented? Getting the pneumonia shot (vaccine). These shots have different types and schedules. Ask your doctor what works best for you. Think about getting this shot if: ? You are older than 65 years of age. ? You are 19?65 years of age and: ? You are being treated for cancer. ? You have long-term lung disease. ? You have other problems that affect your body's defense system. Ask your doctor if you have one of these. ??? Getting your flu shot every year. Ask your doctor which type of shot is best for you. ??? Going to the dentist as often as told. ??? Washing your hands often with soap and water for at least 20 seconds. If you cannot use soap and water, use hand oil furnace installer. Contact a doctor if: ??? You have a fever. ??? You lose sleep because your cough medicine does not help. Get help right away if: ??? You are short of breath and this gets worse. ??? You have more chest pain. ??? Your sickness gets worse. This is very serious if: ? You are an older adult. ? Your body's defense system is weak. ??? You cough up blood. These symptoms may be an emergency. Get help right away. Call 911. ??? Do not wait to see if the symptoms will go away. ??? Do not drive yourself to the hospital. Summary ??? Pneumonia is an infection of the lungs. ??? Community-acquired pneumonia affects (more content not included)... [facility] 08-03-2024 History of Present illness Narrative 1h [...] in 3 wks. documented in this encounter [facility] 07-24-2024 Hospital Discharge instructions Patient Education 07/24/2024 10:39:53 Cough, Adult, Pcop-ig-Txnz Cough, Adult A cough helps to clear [...] Follow these instructions at home: Medicines Take nusr-fak-fvtuwve and prescription medicines only as told by [...] provider. Document Revised: 04/24/2023 Document Reviewed: 04/24/2023 [employer] Patient Education 2023 [employer] [facility] 07-24-2024 Note Patient Education [...] these instructions at home: Medicines ??? Take temb-now-nyioxxo and prescription medicines only as told by [...] Reviewed: 04/24/2023 Elsevier Patient Education ? 2023 [employer] [facility] 07-06-2024 History of Present illness Narrative Glucola order, Tdap information, and kick count sheet provided for the patient. Denies any complaints. Growth us in 7w documented in this encounter [facility] 06-08-2024 History of Present illness Narrative Anatomy US today: EFW 36%, 3VC, post placenta, ZEHRA NL, normal anatomy, cx 42mm. Feeling movement, doing well. documented in this encounter [facility] 12-04-2023 Hospital Discharge instructions Patient Education 12/04/2023 [...] numbers. This can be done either in [place] or metric measurements. Note that charts and online BMI calculators are available to help you find your BMI quickly and easily without having to do these calculations yourself. To calculate your BMI in [place] measurements: 1.Measure your weight in pounds [...] Centers for Disease Control and Prevention: www.cdc.gov [place] Heart [employer]: www.heart.org National Heart, Lung, and Blood [place]: www.nhlbi.nih.gov Summary Body mass index (BMI) is a number that is calculated from a person's weight and height. BMI may help estimate how much of a person's weight is composed of fat. BMI can help identify those who may be at higher risk for certain medical problems. BMI can be measured using [place] measurements or metric measurements. BMI charts are used to identify whether you are underweight, normal weight, overweight, or obese. This information is not intended to replace advice given to you by your health care provider. Make sure you discuss any questions you have with your health care provider. Document Revised: 05/16/2020 Document Reviewed: 03/23/2020 [employer] Patient Education 2022 [employer] 12/04/2023 14:09:25 Knee Sprain, Adult, Hgsg-kb-Uluy Knee Sprain A knee sprain is a [...] sitting or lying down. General instructions Take zgur-wun-lmlchwe and prescription medicines only as told by [...] provider. Document Revised: 12/01/2022 Document Reviewed: 07/13/2020 [employer] Patient Education 2022 [employer] [facility] 12/04/2023 09:04:53 With:NONE, XXXX Address: [phone] When: Unknown [facility] 03-21-2023 Hospital Discharge instructions [...] if you start to feel better. Take vrkj-rgo-czgfmpj and prescription medicines only as told by [...] provider. Document Revised: 11/06/2021 Document Reviewed: 11/06/2021 [employer] Patient Education 2022 [employer] 03/21/2023 12:17:15 BMI for Adults BMI for [...] numbers. This can be done either in [place] or metric measurements. Note that charts and online BMI calculators are available to help you find your BMI quickly and easily without having to do these calculations yourself. To calculate your BMI in [place] ([place] measurements: 1.Measure your weight in pounds [...] Centers for Disease Control and Prevention: www.cdc.gov [place] [employer]: www.heart.org National Heart, Lung, and Blood [place]: www.nhlbi.nih.gov Summary Body mass index (BMI) is a number that is calculated from a person's weight and height. BMI may help estimate how much of a person's weight is composed of fat. BMI can help identify those who may be at higher risk for certain medical problems. BMI can be measured using [place] measurements or metric measurements. BMI charts are used to identify whether you are underweight, normal weight, overweight, or obese. This information is not intended to replace advice given to you by your health care provider. Make sure you discuss any questions you have with your health care provider. Document Revised: 05/16/2020 Document Reviewed: 03/23/2020 [employer] Patient Education 2022 [employer] 03/21/2023 11:48:46 BMI for Adults BMI for [...] numbers. This can be done either in [place] or metric measurements. Note that charts and online BMI calculators are available to help you find your BMI quickly and easily without having to do these calculations yourself. To calculate your BMI in [place] ([place] measurements: 1.Measure your weight in pounds [...] Centers for Disease Control and Prevention: www.cdc.gov [place] Heart Association: www.heart.org National Heart, Lung, and Blood [place]: www.nhlbi.nih.gov Summary Body mass index (BMI) is a number that is calculated from a person's weight and height. BMI may help estimate how much of a person's weight is composed of fat. BMI can help identify those who may be at higher risk for certain medical problems. BMI can be measured using [place] measurements or metric measurements. BMI charts are used to identify whether you are underweight, normal weight, overweight, or obese. This information is not intended to replace advice given to you by your health care provider. Make sure you discuss any questions you have with your health care provider. Document Revised: 05/16/2020 Document Reviewed: 03/23/2020 [employer] Patient Education 2022 [employer] [facility] 03/21/2023 10:57:12 With:NONE, XXXX Address: [phone] When: Unknown [facility] 06-28-2022 Progress note Note Date/Time June 28, 2022 11:31am [facility] [address] [place] [address] VIRTUAL ASSISTANT Progress Note Signed Patient: Lawanda Ochoa MR#: [id number] : 1995 Acct:[id number] Age/Sex: 26 / F Adm Date: 2 Loc: Room: [address] [place] [address] Type: ADM IN Attending Dr: Mariah Tadeo [...] colace. Bleeding: Lochia appropriate. Predelivery Hgb 12.5. CKC658mL. Postdelivery Hgb 11.2. Asymptomatic. Fawn Harris OMS-III 06/28/22 8:21a Plan day: 2 Vaginal delivery plan (if applicable): routine care, discharge home and follow up 6 weeks Documented By: MARIAH TADEO DO 06/28/22816 Signed By: <Electronically signed by MARIAH TADEO DO> 06/28/22 1131 [facility] Work Phone: 1(304) 781-811810-21-2022 Progress note Author TIN Ahmadi [facility] June 27, 2022 10:53am Note Date/Time June 27, 2022 1 0:53am [facility] [address] [place] [address] VIRTUAL ASSISTANT Progress Note Signed Patient: Lawanda Ochoa MR#: [id number] : 1995 Acct:[id number] Age/Sex: 26 / F Adm Date: 2 Loc: Room: [address] [place] [address] Type: ADM IN Attending Dr: Mariah Tadeo [...] % (Auto) 78.7, Lymph % (Auto) 12.0, [place] % (Auto) 8.6, Eos % (Auto) 0.4, Baso % (Auto) 0.3, Neut # (Auto) 14.1 H, Lymph # (Auto) 2.1, [place] # (Auto) 1.5 H, Eos # (Auto) [...] colace. Bleeding: Lochia appropriate. Predelivery Hgb 12.5. [id number]. Postdelivery Hgb 11.2. Asymptomatic. Fawn Harris OMS-III 06/27/22 7:38a Plan day: 1 Vaginal delivery plan (if applicable): routine care Documented By: TIN Borges 06/27/22 07 33 Signed By: <Electronically signed by TIN Ahmadi> 06/27/22 1053 [facility] [employer] Work Phone: 1(218) 609-638010-20-2022 [facility] No data available for this section [facility] Evaluation noteNo assessment information available [facility] Work Phone: Evaluation note* Diagnosis Onset Date Resolution Status Status post vaginal delivery acute [facility] Work Phone: Evaluation note* Diagnosis related condition, second trimester- Primary 20 weeks gestation of documented in this encounter [facility]* Diagnosis related condition, second trimester- Primary 24 weeks gestation of Screening for diabetes mellitus Other obesity due to excess calories affecting in second trimester documented in this encounter [facility]* Diagnosis related condition in third trimester- Primary 28 weeks gestation of Other obesity due to excess calories affecting in third trimester Other pruritus documented in this encounter [facility] No data available for this section [facility] No data available for this section [facility] Chief Complaint and Reason for Visit Chief Complaint Z3A.36 Z36.85 IUP (Intrauterine ) Chief Complaint Z3A.36 Z36.85 IUP (Intrauterine ) IUP (Intrauterine ) Reason for Visit Status post vaginal delivery Advance Directives No Advanced Directives Records Found Advance Directive Response Recorded Date/ Time Advance [...] DO Admit Provider, Attending Provid er Active Roller Relationship Specialty Start Date End Date Unallocated, Rayshawn Muñoz MD [facility] [place] [address] PCP - General 02/24/23 Roller Relationship Specialty Start Date End Date Unallocated, Rayshawn Muñoz MD [facility] [address] [place] [address] PCP - General 02/24/23 Roller Relationship Specialty Start Date End Date Unallocated, Rayshawn Muñoz MD [facility] [address] [place] [address] PCP - General 02/24/23 Roller Relationship Specialty Start Date End Date Unallocated, Rayshawn Muñoz MD [facility] [place] [address] PCP - General 02/24/23 Roller Relationship Specialty Start Date End Date Unallocated, Rayshawn ProviderMD [address] [facility] [place] [address] PCP - General 02/24/23 Goals (unrecognized section and content) Goals may be documented in a n alternate section No data available for this section No data available for this section No data available for this section No data available for this section No data available for this section INFORMATION SOURCE (unrecogn ized section and content) DATE CREATED AUTHOR 10/31/2022 [facility] DATE CREATED AUTHOR AUTHOR'S ORGANIZ ATION 08/06/2024 [facility] DATE CREATED AUTHOR AUTHOR'S ORGANIZ ATION 08/20/2024 [facility] DATE CREATED AUTHOR AUTHOR'S ORGANIZ ATION 08/20/2024 [facility] FOR RECORDS PERTAINING TO PATIENTS WHO ARE [...] BE BASED ON THE PRIMARY CLINICAL RECORDS. [employer] provides no warranty or guarantee of the accuracy or completeness of information in this document.
[2024-08-22 13:45] LABS: Alanine Aminotransferase 106 U/L (14-59); Albumin Globulin Ratio 0.5; Albumin Level 2.5 g/dL (3.4-5.0); Alkaline Phosphatase 233 U/L (46-116); Anion Gap 16.1; Aspartate Amino Transferase 29 U/L (15-37); BUN Creatinine Ratio 13.5; Bilirubin Total 0.4 mg/dL (0.2-1.0); Calcium 8.9 mg/dL (8.5-10.1); Carbon Dioxide 22.8 mmol/L (21.0-32.0); Chloride 102 mmol/L (98-107); Estimated GFR (African America >60 (>=60 mL/min/1.73m^2); Estimated GFR (Non-African Ame >60 (>=60 mL/min/1.73m^2); Globulin 4.6 g/dL; Glucose 81 mg/dL (74-106); Potassium 3.9 mmol/L (3.5-5.1); Sodium 137 mmol/L (136-145); Total Protein 7.1 g/dL (6.4-8.2)
== END 2024-08-22 09:25 | disposition home or self-care (01) ==
LOC: LAB 09:25
DX: O26.643 Intrahepatic cholestasis of pregnancy, third trimester (principal)
CPT/HCPCS: 36415; 80053